=== PATIENT | male | born 1975 | race Caucasian/White ===

== ENCOUNTER 2016-05-04 16:36 | Inpatient (IN) | payer OTHER, SELFPAY ==
[~2016-05-04 16:36] MED LIST: THIAMINE IV ONE; VITAMINS FOR INFUSION IV ONE; [UNRECOGNIZED DRUG - OTHER] IV ONE
[2016-05-04] MEDS ORDERED: Ativan 2 MG/1 ML VIAL IV ONE (17:00)
[2016-05-04] MEDS ORDERED: Sodium Chloride 0.9% 1000 ML 1,000 ML IV STA (17:00)
[2016-05-04] MEDS ORDERED: LIBRIUM 25 MG PO ONE (17:00)
--- NOTE | 2016-05-04 17:05 | ERPHSYRPT ---
- History of Present Illness Time Seen by Provider: 05/04/16 16:50 Historian: patient Exam Limitations: clinical condition Physician History: PATIENT WITH HYPERTENSION, ALCOHOL ABUSE HAS BEEN BINGE DRINKING FOR 2 WEEKS COMPLAINS OF FREQUENT EMESIS AND DRY HEAVES SINCE LAST NIGHT. HAD AN EPISODE OF TRANSIENT CHEST PAIN 15 MINUTES ENROUTE TO EMERGENCY. DENIES CHEST PAIN, DYSPNEA UPON ARRIVAL TO EMERGENCY ROOM. Timing/Duration: today Quality: tightness Location: substernal Chest Pain Radiation: no radiation Severity of Pain-Max: moderate Severity of Pain-Current: none Associated Symptoms: nausea, vomiting Prior Chest Pain/Cardiac Workup: no prior chest pain Nitro Today/Relief: no nitro taken today Aspirin Treatment Today: no aspirin today Allergies/Adverse Reactions: No Known Drug Allergies Allergy (Verified 05/04/16 17:06) Home Medications: Lisinopril 10 mg [Zestril 10 MG] 10 mg PO BID 12/02/15 [History] Hx Tetanus, Diphtheria Vaccination/Date Given: Yes Hx Influenza Vaccination/Date Given: No Hx Pneumococcal Vaccination/Date Given: No - Review of Systems Constitutional: No Symptoms, No Fever, No Chills Eyes: No Symptoms Ears, Nose, & Throat: No Symptoms Respiratory: No Symptoms, No Cough, No Dyspnea Cardiac: Chest Pain, Palpitations, No Edema, No Syncope Abdominal/Gastrointestinal: Nausea, Vomiting, No Abdominal Pain, No Diarrhea Genitourinary Symptoms: No Symptoms, No Dysuria Musculoskeletal: No Symptoms, No Back Pain, No Neck Pain Skin: No Symptoms, No Rash Neurological: No Dizziness, No Focal Weakness, No Sensory Changes Psychological: No Symptoms Endocrine: No Symptoms All Other Systems: Reviewed and Negative - Past Medical History Pertinent Past Medical History: Yes Neurological History: Migraines, Seizures ENT History: No Pertinent History Cardiac History: Angina, Hypertension Respiratory History: Sleep Apnea Endocrine Medical History: No Pertinent History Musculoskeletal History: Fractures GI Medical History: Pancreatitis History: No Pertinent History Psycho-Social History: Attention Deficit Disorder, Depression, Eating Disorders , Panic Disorder, Other Other Medical History: last seizure possibly in 2011. -Liver sonogram- pt states "they said my liver is scratched.". - heart murmur when a child". broken fingers/lt ankle. 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 - Past Surgical History Past Surgical History: No - Social History Smoking Status: Current every day smoker How long have you smoked: 10 Exposure to second hand smoke: Yes Drug Use: other Patient Lives Alone: No - Physical Exam General Appearance: moderate distress Eye Exam: PERRL/EOMI, eyes nml inspection Ears, Nose, Throat Exam: normal ENT inspection, moist mucous membranes Neck Exam: normal inspection, non-tender, supple, full range of motion Respiratory Exam: normal breath sounds, lungs clear, No respiratory distress Cardiovascular Exam: normal heart sounds, tachycardia Gastrointestinal/Abdomen Exam: soft, normal bowel sounds, No tenderness, No mass Back Exam: normal inspection, No CVA tenderness, No vertebral tenderness Extremity Exam: normal inspection, normal range of motion Neurologic Exam: alert, oriented x 3, cooperative, normal mood/affect, sensation nml, No motor deficits Skin Exam: normal color, warm, dry SpO2 Interpretation: normal SpO2: 98 - Course EKG Interpreted by Me: RATE, Sinus Tach, NORMAL AXIS - Radiology Exams Chest X-ray Interpretation: Interpreted by me, Negative, No Infiltrates Ordered Tests: Active Orders 24 hr Category Date Time Status Up With Assistance TOLERATED Activity 05/04/16 18:10 Active Accucheck ACHS Care 05/04/16 18:12 Active Admission/Status Order ROUTINE Care 05/04/16 18:10 Active 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 Care 05/04/16 17:00 Active EKG-ER Only STAT Care 05/04/16 17:00 Active IV Insertion STAT Care 05/04/16 17:00 Active IV Insertion-2nd Peripheral STAT Care 05/04/16 17:17 Active Intake and Output 09,13,18,21 Care 05/04/16 18:10 Active Oxygen-ED Only NASAL CANNULA 2 lpm Care 05/04/16 17:00 Active Vital Signs Q4H Care 05/04/16 18:10 Active Regular Diet Diet 05/04/16 Dinner Active CHEST 1 VIEW (PORTABLE) Stat Exams 05/04/16 17:00 Taken AMYLASE Stat Lab 05/04/16 17:00 Completed CBC W DIFF Stat Lab 05/04/16 17:00 Completed CMP Stat Lab 05/04/16 17:00 Completed ETHYL ALCOHOL Routine Lab 05/04/16 17:00 Received MAGNESIUM Stat Lab 05/04/16 17:00 Completed PROTIME WITH INR Stat Lab 05/04/16 17:00 Completed TROPONIN Q3H Lab 05/04/16 17:15 Completed TROPONIN Q3H Lab 05/04/16 20:15 Ordered TROPONIN Q3H Lab 05/04/16 23:15 Ordered TROPONIN Q3H Lab 05/05/16 02:15 Ordered TROPONIN Q3H Lab 05/05/16 05:15 Ordered UA W/ MICROSCOPIC Stat Lab 05/04/16 18:10 Results Urine Triage Profile Stat Lab 05/04/16 18:10 Received Oxygen NASAL CANNULA 2 lpm RT 05/04/16 18:10 Active Pulse Oximetry ROUTINE RT 05/04/16 18:10 Active Transfer Order Routine Transfer 05/04/16 18:09 Ordered Medication Summary Generic Name Dose Route Start Last Admin Trade Name Freq PRN Reason Stop Dose Admin Folic Acid 1 mg 05/05/16 10:00 Folate 1 Mg PO 06/04/16 09:59 DAILY BOO Thiamine HCl 100 mg/ 1,011 mls @ 500 mls/hr 05/04/16 17:30 05/04/16 17:37 Multivitamins/Minerals 10 ml/ IV 06/03/16 17:29 500 mls/hr Sodium Chloride .Q2H2M BOO Administration Sodium Chloride 1,000 mls @ 125 mls/hr 05/04/16 18:15 Sodium Chloride 0.9% 1000 Ml IV 06/03/16 18:14 .Q8H BOO Lisinopril 20 mg 05/05/16 10:00 Zestril 20 Mg PO 06/04/16 09:59 DAILY BOO Lorazepam 0 mg 05/04/16 18:10 Ativan 2 Mg/1 Ml Vial IV 06/03/16 18:09 Q2H PRN PRN CIWA SCORE Protocol Pantoprazole Sodium 20 mg 05/05/16 10:00 Protonix 20mg Tablet PO 06/04/16 09:59 DAILY BOO Thiamine HCl 100 mg 05/05/16 10:00 Vitamin B-1 100 Mg PO 06/04/16 09:59 DAILY BOO Discontinued Medications Generic Name Dose Route Start Last Admin Trade Name Freq PRN Reason Stop Dose Admin Chlordiazepoxide HCl 50 mg 05/04/16 17:00 05/04/16 17:37 Librium 25 Mg PO 05/04/16 17:01 50 mg STAT ONE Administration Sodium Chloride 1,000 mls @ 999 mls/hr 05/04/16 17:00 05/04/16 17:07 Sodium Chloride 0.9% 1000 Ml IV 05/04/16 18:00 999 mls/hr .Q1H1M STA Administration Sodium Chloride Confirm 05/04/16 17:06 Sodium Chloride 0.9% 1000 Ml Administered 05/04/16 17:07 Dose 1,000 mls @ ud .ROUTE .STK-MED ONE Multivitamins/Minerals 10 ml/ 1,011 mls @ ud Thiamine HCl 100 mg/ Sodium IV 08/22/79 00:01 Chloride .STK-MED ONE Lorazepam 2 mg 05/04/16 17:00 05/04/16 17:07 Ativan 2 Mg/1 Ml Vial IV 05/04/16 17:01 2 mg STAT ONE Administration Lorazepam Confirm 05/04/16 17:06 Ativan 2 Mg/1 Ml Vial Administered 05/04/16 17:07 Dose 2 mg .ROUTE .STK-MED ONE Lab/Rad Data: Laboratory Result Diagrams 05/04/16 17:00 05/04/16 17:00 Laboratory Results 05/04/16 05/04/16 05/04/16 Range/Units 18:10 17:15 17:00 WBC (4.0-10.5) K/mm3 RBC (4.1-5.6) M/mm3 Hgb (12.5-18.0) gm/dl Hct (42-50) % MCV (78-100) fl MCH (26-32) pg MCHC (32-36) g/dl RDW (11.5-14.0) % Plt Count (150-450) K/mm3 MPV (6-9.5) fl Gran % (36.0-66.0) % Lymphocytes % (24.0-44.0) % Monocytes % (0.0-12.0) % Eosinophils % (0.00-5.0) % Basophils % (0.0-0.4) % Basophils # (0-0.4) INR 1.08 (0.8-3.0) Sodium (136-145) mEq/L Potassium (3.5-5.1) mEq/L Chloride (98-107) mEq/L Carbon Dioxide (21-32) mEq/L Anion Gap (5-15) MEQ/L BUN (9-20) mg/dL Creatinine (0.55-1.30) mg/dl Estimated GFR ML/MIN Glucose (70-110) MG/DL Calcium (8.5-10.1) mg/dL Magnesium (1.8-2.4) mg/dL Total Bilirubin (0.2-1.0) mg/dL AST (15-37) U/L ALT (12-78) U/L Alkaline Phosphatase (46-116) U/L Troponin I < 0.017 (0.000-0.056) ng/ml Serum Total Protein (6.4-8.2) gm/dL Albumin (3.4-5.0) g/dL Amylase (25-115) U/L Ur Collection Type Pending Urine Color Pending Urine Appearance Pending Urine pH Pending Ur Specific [place] Pending Urine Protein Pending Urine Glucose (UA) Pending Urine Ketones Pending Urine Nitrite Pending Urine Bilirubin Pending Urine Urobilinogen Pending Urine WBC (Auto) Pending Urine RBC (Auto) Pending Specimen Received Pending 05/04/16 05/04/16 Range/Units 17:00 17:00 WBC 6.1 (4.0-10.5) K/mm3 RBC 5.09 (4.1-5.6) M/mm3 Hgb 15.6 (12.5-18.0) gm/dl Hct 45.4 (42-50) % MCV 89.2 (78-100) fl MCH 30.6 (26-32) pg MCHC 34.4 (32-36) g/dl RDW 14.3 H (11.5-14.0) % Plt Count 177 (150-450) K/mm3 MPV 9.6 H (6-9.5) fl Gran % 58.0 (36.0-66.0) % Lymphocytes % 28.7 (24.0-44.0) % Monocytes % 12.9 H (0.0-12.0) % Eosinophils % 0.2 (0.00-5.0) % Basophils % 0.2 (0.0-0.4) % Basophils # 0.01 (0-0.4) INR (0.8-3.0) Sodium 136 (136-145) mEq/L Potassium 4.3 (3.5-5.1) mEq/L Chloride 96 L (98-107) mEq/L Carbon Dioxide 20.0 L (21-32) mEq/L Anion Gap 24.2 H (5-15) MEQ/L BUN 11 (9-20) mg/dL Creatinine 1.15 (0.55-1.30) mg/dl Estimated GFR > 60 ML/MIN Glucose 74 (70-110) MG/DL Calcium 9.0 (8.5-10.1) mg/dL Magnesium 1.5 L (1.8-2.4) mg/dL Total Bilirubin 1.3 H (0.2-1.0) mg/dL AST 48 H (15-37) U/L ALT 44 (12-78) U/L Alkaline Phosphatase 94 (46-116) U/L Troponin I (0.000-0.056) ng/ml Serum Total Protein 8.4 H (6.4-8.2) gm/dL Albumin 4.5 (3.4-5.0) g/dL Amylase 51 (25-115) U/L Ur Collection Type Urine Color Urine Appearance Urine pH Ur Specific [place] Urine Protein Urine Glucose (UA) Urine Ketones Urine Nitrite Urine Bilirubin Urine Urobilinogen Urine WBC (Auto) Urine RBC (Auto) Specimen Received - Progress Progress: improved Progress Note: 05/04/16 18:04 PATIENT GIVEN LIBRIUM 50MG ORALLY, IV FLUIDS 1 LITER NORMAL SALINE, 2ND LITER WITH MVI AND THIAMINE 100MG Discussed with Dr.: Streeter (DISCUSSED WITH DR STREETER AT 1800 FOR ADMISSION) - Departure Time of Disposition: 18:25 Departure Disposition: In-patient Admission Clinical Impression: ALCOHOL WITHDRAWAL, ACUTE CHEST PAIN Condition: Stable Critical Care Time: No Referrals: FIDE MANUEL MD [Primary Care Provider] -
[2016-05-04] MEDS ORDERED: Sodium Chloride 0.9% 1000 ML 1,000 ML ONE (17:06)
[2016-05-04] MEDS ORDERED: Ativan 2 MG/1 ML VIAL ONE (17:06)
[2016-05-04 17:20] LABS: BASOPHIL % 0.2 % (0.0-0.4); Eosinophil % 0.2 % (0.00-5.0); Lymphocytes % 28.7 % (24.0-44.0); Mean Cell Volume 89.2 fl (78-100); Mean Corpuscular Hemoglobin 30.6 pg (26-32); Mean Platelet Volume 9.6 fl (6-9.5); Monocytes % 12.9 % (0.0-12.0); Platelet Count 177 K/mm3 (150-450); Red Blood Count 5.09 M/mm3 (4.1-5.6); Red Cell Distribution Width 14.3 % (11.5-14.0); White Blood Count 6.1 K/mm3 (4.0-10.5)
[2016-05-04] MEDS ORDERED: THIAMINE IV SCH (17:30)
[2016-05-04] MEDS ORDERED: [UNRECOGNIZED DRUG - OTHER] IV SCH (17:30)
[2016-05-04] MEDS ORDERED: VITAMINS FOR INFUSION IV SCH (17:30)
[2016-05-04 17:32] LABS: INR 1.08 (0.8-3.0); PROTIME 12.1 SECONDS (8.83-12.87)
[2016-05-04 17:44] LABS: ALBUMIN 4.5 g/dL (3.4-5.0); ALKALINE PHOSPHATASE 94 U/L (46-116); ANION GAP 24.2 MEQ/L (5-15); BILIRUBIN,TOTAL 1.3 mg/dL (0.2-1.0); BLOOD UREA NITROGEN 11 mg/dL (9-20); CHLORIDE 96 mEq/L (98-107); Glucose 74 MG/DL (70-110); MAGNESIUM 1.5 mg/dL (1.8-2.4); Potassium 4.3 mEq/L (3.5-5.1); SGOT/AST 48 U/L (15-37); SGPT/ALT 44 U/L (12-78); SODIUM 136 mEq/L (136-145); Total Protein 8.4 gm/dL (6.4-8.2)
[2016-05-04 18:18] LABS: COMPLETE URINE MICROSCOPIC? YES; Collection Type CLEAN CATCH
[2016-05-04 18:22] LABS: Bacteria RARE /HPF (NEGATIVE); Epithelial Cells RARE /HPF (FEW); Mucus SLIGHT /HPF (NEGATIVE); WBC 0-2 /HPF (0-5)
[2016-05-04] MEDS ORDERED: Nitrostat 0.4 MG Tablet SL PRN (20:25)
[2016-05-04] MEDS: Nicoderm CQ 21 MG TOP SCH (21:06)
[2016-05-04] MEDS: Sodium Chloride 0.9% 1000 ML 1,000 ML IV SCH (21:19)
[2016-05-04] MEDS: Ambien 5 MG Tablet PO PRN (21:44)
[2016-05-05] MEDS: Sodium Chloride 0.9% 1000 ML 1,000 ML IV SCH ×3 (05:08→21:04)
[2016-05-05] MEDS: Ativan 2 MG/1 ML VIAL IV PRN ×5 (07:33→22:29)
--- NOTE | 2016-05-05 08:25 | PCM.HP ---
History of Present Illness - Chief Complaint Chief Complaint: chest pain, ETOH withdrawl History of Present Illness: is a 41 year old male with a history of alocholism who has been binge drinking for the last 2-3 weeks, he presented with vomiting and chest pain to the ER. He has a history of htn but has been noncompliant with his lisinopril. He denies chest pain this morning, still feels nauseated but has improved. - Review of Systems Constitutional: No Fever, No Chills Cardiac: Chest Pain, No Edema, No Syncope Abdominal/Gastrointestinal: Nausea, Vomiting, No Abdominal Pain, No Diarrhea, No Hematemesis, No Hematochezia, No Melena Genitourinary Symptoms: No Dysuria Skin: No Rash Neurological: No Dizziness, No Focal Weakness, No Sensory Changes All Other Systems: Reviewed and Negative Medications & Allergies Home Medications: Home Medication List Lisinopril 10 mg [Zestril 10 MG] 10 mg PO BID 12/02/15 [History Confirmed 05/04/16] Allergies/Adverse Reactions: Allergies Allergy/AdvReac Type Severity Reaction Status Date / Time No Known Drug Allergies Allergy Verified 05/04/16 17:06 - Past Medical History Past Medical History: Yes Neurological History: Migraines, Seizures ENT History: No Pertinent History Cardiac History: Angina, Hypertension, Other Respiratory History: Sleep Apnea Endocrine Medical History: No Pertinent History Musculoskelatal History: Fractures GI Medical History: Pancreatitis History: No Pertinent History Pyscho-Social History: Attention Deficit Disorder, Depression, Eating Disorders , Panic Disorder, Other Male Reproductive Disorders: No Pertinent History Comment: last seizure possibly in 4-5 months ago Dec 2015). -Liver sonogram- pt states "they said my liver is scratched.". - heart murmur when a child". broken fingers/lt ankle, paranoia. 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 - Past Surgical History Past Surgical History: No Neuro Surgical History: No Pertinent History Cardiac History: No Pertinent History Respiratory Surgery: No Pertinent History GI Surgical History: No Pertinent History Genitourinary Surgical Hx: No Pertinent History Musculskeletal Surgical Hx: No Pertinent History Male Surgical History: No Pertinent History - Social History Smoking Status: Current every day smoker How long have you smoked: 10 Exposure to second hand smoke: Yes Alcohol: Heavy Drug Use: other - Physical Exam Vital Signs: Vital Signs - 24 hr Temp Pulse Pulse Resp BP BP Pulse Ox 05/05/16 07:40 98.9 F 78 20 108/90 98 05/05/16 04:00 98.7 F 71 25 H 132/81 93 L 05/05/16 00:34 20 05/05/16 00:01 80 05/05/16 00:00 98.7 F 80 20 130/70 93 L 05/04/16 21:00 83 23 93 L 05/04/16 20:34 16 05/04/16 19:37 98.4 F 89 16 128/61 98 05/04/16 18:23 98 05/04/16 17:43 104 H 20 116/64 96 05/04/16 16:37 98.3 F 123 H 123 H 24 146/93 97 Oxygen-Last 24 hours O2 Percentage 2 Liters = 28% O2 Percentage 2 Liters = 28% O2 Percentage 2 Liters = 28% O2 Percentage 2 Liters = 28% General Appearance: no apparent distress Neurologic Exam: alert Eye Exam: PERRL/EOMI, eyes nml inspection Respiratory Exam: normal breath sounds, lungs clear, No respiratory distress Cardiovascular Exam: regular rate/rhythm, normal heart sounds, normal peripheral pulses Gastrointestinal/Abdomen Exam: soft, normal bowel sounds, No tenderness, No mass Extremity Exam: normal inspection, normal range of motion, pelvis stable Skin Exam: normal color, warm, dry, No rash Results - Labs Lab/Micro Results: Lab Results-Last 24 Hours 05/04/16 05/04/16 05/05/16 Range/Units 20:20 23:35 02:15 Troponin I < 0.017 < 0.017 < 0.017 (0.000-0.056) ng/ml 05/05/16 Range/Units 05:07 Troponin I < 0.017 (0.000-0.056) ng/ml - Other Procedures and Tests Respiratory Therapy 05/04/16 18:10 Oxygen NASAL CANNULA 2 lpm 05/06/16 05:00 EKG DAILY 05/07/16 05:00 EKG DAILY 05/08/16 05:00 EKG DAILY Assessment/Plan (1) Chest pain Current Visit: Yes Status: Acute Assessment & Plan: AR ruled out, related to withdrawal Code(s): R07.9 - CHEST PAIN, UNSPECIFIED (2) Alcohol withdrawal Current Visit: No Status: Acute Assessment & Plan: per records patient has had seizure in the past related to withdrawal so will keep in ICU as a precaution to monitor and treat withdrawal symptoms Code(s): F10.239 - ALCOHOL DEPENDENCE WITH WITHDRAWAL, UNSPECIFIED (3) Nausea & vomiting Current Visit: Yes Status: Acute Assessment & Plan: likely related to etoh withdrawal, will treat nausea prn and continue regular diet as tolerated as he seems much improved. will order ppi as well Code(s): R11.2 - NAUSEA WITH VOMITING, UNSPECIFIED (4) Hypertension Current Visit: Yes Status: Acute Assessment & Plan: stable on lisinopril Code(s): I10 - ESSENTIAL (PRIMARY) HYPERTENSION (5) Alcohol abuse Current Visit: No Status: Acute Code(s): F10.10 - ALCOHOL ABUSE, UNCOMPLICATED
--- NOTE | 2016-05-05 08:32 | XRAY ---
Indication: Cough Comparison: December 02, 2015 Portable chest demonstrates new small focus of lingular atelectasis/scarring. Remaining heart, lungs, and bony thorax normal.
[2016-05-05] MEDS: FOLATE 1 MG PO SCH (10:53)
[2016-05-05] MEDS: Protonix 20MG Tablet PO SCH (10:53)
[2016-05-05] MEDS: VITAMIN B-1 100 MG PO SCH (10:53)
[2016-05-05] MEDS: Zestril 20 MG PO SCH (10:53)
[2016-05-05] MEDS: Nicoderm CQ 21 MG TOP SCH (20:32)
[2016-05-05] MEDS: Ambien 5 MG Tablet PO PRN (22:29)
[2016-05-06] MEDS: Ativan 2 MG/1 ML VIAL IV PRN ×6 (02:00→23:58)
[2016-05-06 05:53] LABS: Eosinophil % 1.3 % (0.00-5.0); Granulocytes % 35.7 % (36.0-66.0); Lymphocytes % 54.9 % (24.0-44.0); Mean Cell Volume 93.3 fl (78-100); Mean Corpuscular Hemoglobin 30.7 pg (26-32); Mean Platelet Volume 10.4 fl (6-9.5); Monocytes % 8.1 % (0.0-12.0); Platelet Count 124 K/mm3 (150-450); Red Blood Count 4.36 M/mm3 (4.1-5.6); Red Cell Distribution Width 14.6 % (11.5-14.0); White Blood Count 4.6 K/mm3 (4.0-10.5)
[2016-05-06 06:07] LABS: PROTIME 11.2 SECONDS (8.83-12.87)
[2016-05-06 06:17] LABS: ALBUMIN 3.4 g/dL (3.4-5.0); ALKALINE PHOSPHATASE 84 U/L (46-116); ANION GAP 12.5 MEQ/L (5-15); BILIRUBIN,TOTAL 0.6 mg/dL (0.2-1.0); BLOOD UREA NITROGEN 9 mg/dL (9-20); CHLORIDE 107 mEq/L (98-107); Carbon Dioxide 24.7 mEq/L (21-32); Glucose 99 MG/DL (70-110); MAGNESIUM 1.8 mg/dL (1.8-2.4); Potassium 3.8 mEq/L (3.5-5.1); SGOT/AST 36 U/L (15-37); SGPT/ALT 35 U/L (12-78); SODIUM 140 mEq/L (136-145); Total Protein 7.2 gm/dL (6.4-8.2)
[2016-05-06] MEDS: Sodium Chloride 0.9% 1000 ML 1,000 ML IV SCH ×4 (06:47→23:20)
--- NOTE | 2016-05-06 07:49 | PCM.NOTE ---
Date and Time: 05/06/16 0747 Subjective Assessment: patient was admitted with nausea/vomiting, chest pain and alcohol abuse. he is currently on withdrawal protocol and receiving ativan every 2 hours which is helping. he vomited x 1 yesterday but overall feeling better Objective Exam General Appearance: no apparent distress Neurologic Exam: alert, oriented x 3 Skin Exam: normal color, warm, dry Respiratory Exam: normal breath sounds, lungs clear, No respiratory distress Cardiovascular Exam: regular rate/rhythm, normal heart sounds Gastrointestinal/Abdomen Exam: soft, No tenderness, No mass Extremity Exam: normal inspection, normal range of motion OBJECTIVE DATA Vital Signs: Vital Signs - 24 hr Temp Pulse Resp BP Pulse Ox 05/06/16 07:21 93 L 05/06/16 04:00 97.7 F 71 24 124/80 98 05/06/16 00:01 70 05/06/16 00:00 98.8 F 70 22 133/93 96 05/05/16 20:00 98.2 F 74 14 120/78 98 05/05/16 19:55 86 18 97 05/05/16 16:00 98.2 F 68 18 120/76 96 05/05/16 12:00 98.1 F 84 20 141/85 95 Pain Assessment - Last Documented Pain Scale Used 0-10 Pain Scale Intake and Output: Intake & Output 05/03/16 05/04/16 05/05/16 05/06/16 11:59 11:59 11:59 11:59 Intake Total 1718 3288 Output Total 200 850 Balance 1518 2438 Weight 98.112 kg 97.976 kg Lab Results: Lab Results-Last 24 Hours 05/06/16 05/06/16 05/06/16 Range/Units 05:15 05:15 05:15 WBC 4.6 (4.0-10.5) K/mm3 RBC 4.36 (4.1-5.6) M/mm3 Hgb 13.4 (12.5-18.0) gm/dl Hct 40.7 L (42-50) % MCV 93.3 (78-100) fl MCH 30.7 (26-32) pg MCHC 32.9 (32-36) g/dl RDW 14.6 H (11.5-14.0) % Plt Count 124 L (150-450) K/mm3 MPV 10.4 H (6-9.5) fl Gran % 35.7 L (36.0-66.0) % Lymphocytes % 54.9 H (24.0-44.0) % Monocytes % 8.1 (0.0-12.0) % Eosinophils % 1.3 (0.00-5.0) % Basophils % 0.0 (0.0-0.4) % Basophils # 0 (0-0.4) INR 1.00 (0.8-3.0) Sodium 140 (136-145) mEq/L Potassium 3.8 (3.5-5.1) mEq/L Chloride 107 (98-107) mEq/L Carbon Dioxide 24.7 (21-32) mEq/L Anion Gap 12.5 (5-15) MEQ/L BUN 9 (9-20) mg/dL Creatinine 0.88 (0.55-1.30) mg/dl Estimated GFR > 60 ML/MIN Glucose 99 (70-110) MG/DL Calcium 8.4 L (8.5-10.1) mg/dL Magnesium 1.8 (1.8-2.4) mg/dL Total Bilirubin 0.6 (0.2-1.0) mg/dL AST 36 (15-37) U/L ALT 35 (12-78) U/L Alkaline Phosphatase 84 (46-116) U/L Serum Total Protein 7.2 (6.4-8.2) gm/dL Albumin 3.4 (3.4-5.0) g/dL Assessment/Plan (1) Chest pain Current Visit: Yes Status: Acute Assessment & Plan: MT ruled out Code(s): R07.9 - CHEST PAIN, UNSPECIFIED (2) Alcohol withdrawal Current Visit: No Status: Acute Assessment & Plan: continue detox protocol, doing well at this point. has had seizure in the past from withdrawal so keeping in ICU for higher level of monitoring and to treat with detox protocol at this time. Code(s): F10.239 - ALCOHOL DEPENDENCE WITH WITHDRAWAL, UNSPECIFIED (3) Nausea & vomiting Current Visit: Yes Status: Acute Code(s): R11.2 - NAUSEA WITH VOMITING, UNSPECIFIED (4) Hypertension Current Visit: Yes Status: Acute Code(s): I10 - ESSENTIAL (PRIMARY) HYPERTENSION (5) Alcohol abuse Current Visit: No Status: Acute Code(s): F10.10 - ALCOHOL ABUSE, UNCOMPLICATED
[2016-05-06] MEDS: Protonix 20MG Tablet PO SCH (08:13)
[2016-05-06] MEDS: Zestril 20 MG PO SCH (08:13)
[2016-05-06] MEDS: FOLATE 1 MG PO SCH (08:13)
[2016-05-06] MEDS: VITAMIN B-1 100 MG PO SCH (08:15)
[2016-05-06] MEDS: Nicoderm CQ 21 MG TOP SCH (20:10)
[2016-05-06] MEDS: Ambien 5 MG Tablet PO PRN (23:59)
[2016-05-07 05:01] VITALS: BP 159/90; O2SAT 99
[2016-05-07] MEDS: Sodium Chloride 0.9% 1000 ML 1,000 ML IV SCH (06:37)
[2016-05-07 08:24] VITALS: PULSE 59
--- NOTE | 2016-05-07 08:55 | PCM.DCORD ---
- Discharge Discharge Date: 05/07/16 Disposition: Home, Self-Care Condition: Stable Prescriptions: Fluoxetine HCl [Prozac] 20 mg PO DAILY #30 capsule Lisinopril 20 mg [Zestril 20 MG] 20 mg PO DAILY #30 tablet Medications: Home Medications Lisinopril 10 mg [Zestril 10 MG] 10 mg PO BID 12/02/15 [Confirmed 05/04/16 ] Active Inpatient Medications Folic Acid (Folate 1 Mg) 1 mg PO DAILY [facility] Stop: 06/04/16 09:59 Last Admin: 05/06/16 08:13 Dose: 1 mg Sodium Chloride (Sodium Chloride 0.9% 1000 Ml) 1,000 mls @ 125 mls/hr IV .Q8H [facility] Stop: 06/03/16 18:14 Last Admin: 05/07/16 06:37 Dose: 125 mls/hr Lisinopril (Zestril 20 Mg) 20 mg PO DAILY [facility] Stop: 06/04/16 09:59 Last Admin: 05/06/16 08:13 Dose: 20 mg Lorazepam (Ativan 2 Mg/1 Ml Vial) 0 mg IV Q2H PRN PRN; Protocol PRN Reason: CIWA SCORE Stop: 06/03/16 18:09 Last Admin: 05/06/16 23:58 Dose: 2 mg Nicotine (Nicoderm Cq 21 Mg) 21 mg TOP Q24H [facility] Stop: 06/03/16 20:59 Last Admin: 05/06/16 20:10 Dose: 21 mg Nitroglycerin (Nitrostat 0.4 Mg Tablet) 0.4 mg SL Q5MIN PRN MR X 3 PRN PRN Reason: CHEST PAIN Stop: 06/03/16 20:24 Pantoprazole Sodium (Protonix 20mg Tablet) 20 mg PO DAILY [facility] Stop: 06/04/16 09:59 Last Admin: 05/06/16 08:13 Dose: 20 mg Thiamine HCl (Vitamin B-1 100 Mg) 100 mg PO DAILY [facility] Stop: 06/04/16 09:59 Last Admin: 05/06/16 08:15 Dose: 100 mg Zolpidem Tartrate (Ambien 5 Mg Tablet) 5 mg PO HS PRN PRN PRN Reason: INSOMNIA Stop: 06/03/16 21:29 Last Admin: 05/06/16 23:59 Dose: 5 mg Additional Instructions: [facility] follow up Follow up with: FIDE MANUEL MD [Primary Care Provider] -
--- NOTE | 2016-05-07 09:01 | PCM.DS ---
Discharge Summary Date of Admission: 05/04/16 19:08 Date of Discharge: 05/07/16 Admitting Physician: SOILA STREETER Primary Care Provider: FIDE MANUEL Allergies Allergies No Known Drug Allergies Allergy (Verified 05/04/16 17:06) Hospital Summary - Hospital Course Hospital Course: Mr. De La Rosa has history of alcoholism he was clean for several months with a good support group but was triggered to start drinking again and has been drinking heavily for the last several weeks. He got nauseated and vomiting and last drink was 1 day prior to presentation. He had hx of alcohol withdraw seizures in the past and was admitted with iv fluids, nausea control, and ativan. He improved and was doing well last ativan dose was at 11 pm the day prior to discharge with no tremors. He is feeling better motivated to quit again. has plans to follow up with the [facility] and his support group and [facility]uther[facility]. He has been treated for depression and anxiety in the past but never been on anything long enough to see if it will work. He is problems with feelings of worthlessness, helplessness and we discussed treatment options. Encouraged f/u for therapy with the [facility] and start trial of prozac daily. - Vitals & Intake/Output Vital Signs: Vital Signs Temperature 98 F 05/07/16 08:00 Pulse Rate 59 L 05/07/16 08:00 Respiratory Rate 18 05/07/16 08:00 Blood Pressure 159/90 05/07/16 08:00 O2 Sat by Pulse Oximetry 99 05/07/16 08:00 Oxygen-Last Documented O2 Percentage 2 Liters = 28% Intake & Output: Intake & Output 05/04/16 05/05/16 05/06/16 05/07/16 11:59 11:59 11:59 11:59 Intake Total 1718 3288 3250 Output Total 200 850 Balance 1518 2438 3250 Weight 98.112 kg 97.976 kg 94.347 kg - Lab Result Diagrams: 05/06/16 05:15 05/06/16 05:15 - Procedures and Test Procedures and Tests throughout Hospitalization: Therapy Orders & Screens 05/04/16 18:10 Oxygen NASAL CANNULA 2 lpm Comment: 05/04/16 20:03 Smoking Cessation Education ONCE Comment: Diagnosis: chest pain, ETOH withdrawl Smoking Status: Current every day smoker How long have you smoked: 10 Have you smoked in the past 12 months: Yes Approximately how many cigarettes per day: 1 ppd Do you dip or chew tobacco: Yes 05/05/16 01:40 EKG ROUTINE Comment: Diagnosis: chest pain, ETOH withdrawl 05/06/16 05:00 EKG DAILY Comment: Diagnosis: chest pain, ETOH withdrawl 05/07/16 05:00 EKG DAILY Comment: Diagnosis: chest pain, ETOH withdrawl 05/08/16 05:00 EKG DAILY Comment: Diagnosis: chest pain, ETOH withdrawl Discharge Exam General Appearance: no apparent distress Neurologic Exam: alert, oriented x 3, cooperative Skin Exam: warm, dry Eye Exam: No eyes nml inspection, No scleral icterus Ears, Nose, Throat Exam: moist mucous membranes Neck Exam: non-tender, supple Respiratory Exam: normal breath sounds, lungs clear Cardiovascular Exam: regular rate/rhythm, normal heart sounds Gastrointestinal/Abdomen Exam: soft, normal bowel sounds, No tenderness Extremity Exam: normal inspection, No pedal edema, No swelling Final Diagnosis/Problem List - Final Discharge Diagnosis/Problem (1) Depression Current Visit: Yes Status: Acute (2) Alcohol withdrawal syndrome Current Visit: Yes Status: Acute (3) Chest pain Current Visit: Yes Status: Resolved (4) Hypertension Current Visit: Yes Status: Acute (5) Hypomagnesemia Current Visit: Yes Status: Resolved - Discharge Discharge Date: 05/07/16 Disposition: Home, Self-Care Condition: Stable Prescriptions: Fluoxetine HCl [Prozac] 20 mg PO DAILY #30 capsule Lisinopril 20 mg [Zestril 20 MG] 20 mg PO DAILY #30 tablet Medications: Home Medications Fluoxetine HCl [Prozac] 20 mg PO DAILY #30 capsule 05/07/16 Lisinopril 20 mg [Zestril 20 MG] 20 mg PO DAILY #30 tablet 05/07/16 Active Inpatient Medications Folic Acid (Folate 1 Mg) 1 mg PO DAILY [facility] Stop: 06/04/16 09:59 Last Admin: 05/06/16 08:13 Dose: 1 mg Sodium Chloride (Sodium Chloride 0.9% 1000 Ml) 1,000 mls @ 125 mls/hr IV .Q8H BOO Stop: 06/03/16 18:14 Last Admin: 05/07/16 06:37 Dose: 125 mls/hr Lisinopril (Zestril 20 Mg) 20 mg PO DAILY [facility] Stop: 06/04/16 09:59 Last Admin: 05/06/16 08:13 Dose: 20 mg Lorazepam (Ativan 2 Mg/1 Ml Vial) 0 mg IV Q2H PRN PRN; Protocol PRN Reason: CIWA SCORE Stop: 06/03/16 18:09 Last Admin: 05/06/16 23:58 Dose: 2 mg Nicotine (Nicoderm Cq 21 Mg) 21 mg TOP Q24H BOO Stop: 06/03/16 20:59 Last Admin: 05/06/16 20:10 Dose: 21 mg Nitroglycerin (Nitrostat 0.4 Mg Tablet) 0.4 mg SL Q5MIN PRN MR X 3 PRN PRN Reason: CHEST PAIN Stop: 06/03/16 20:24 Pantoprazole Sodium (Protonix 20mg Tablet) 20 mg PO DAILY [facility] Stop: 06/04/16 09:59 Last Admin: 05/06/16 08:13 Dose: 20 mg Thiamine HCl (Vitamin B-1 100 Mg) 100 mg PO DAILY BOO Stop: 06/04/16 09:59 Last Admin: 05/06/16 08:15 Dose: 100 mg Zolpidem Tartrate (Ambien 5 Mg Tablet) 5 mg PO HS PRN PRN PRN Reason: INSOMNIA Stop: 06/03/16 21:29 Last Admin: 05/06/16 23:59 Dose: 5 mg Additional Instructions: [facility] follow up Follow up with: FIDE MANUEL MD [Primary Care Provider] -
== END 2016-05-07 09:50 | disposition home or self-care (01) | DRG 881 ==
LOC: ED 16:36 → ICU 19:08
PROVIDERS: ADMIT Family Medicine; ATTEND Family Medicine
DX: F32.9 Major depressive disorder, single episode, unspecified (principal); F10.239 Alcohol dependence with withdrawal, unspecified; R07.9 Chest pain, unspecified; I10 Essential (primary) hypertension; E83.42 Hypomagnesemia; Z91.14 Patient's other noncompliance with medication regimen; F10.10 Alcohol abuse, uncomplicated; G47.30 Sleep apnea, unspecified; F98.8 Other specified behavioral and emotional disorders with onset usually occurring in childhood and adolescence; F41.0 Panic disorder [episodic paroxysmal anxiety]; Z72.0 Tobacco use
CPT/HCPCS: 36000; 36415; 71010; 80053; 80307; 81000; 82150; 83735; 84484; 85025; 85610; 90791; 93005; 93041; 96374; 99284; G0481; J2060; Q3014

== ENCOUNTER 2016-05-31 13:18 | Observation (INO) | payer OTHER ==
[2016-05-31] MEDS ORDERED: Ativan 2 MG/1 ML VIAL IV ONE ×2 (13:40→15:00)
[2016-05-31] MEDS ORDERED: THIAMINE 200 MG/2 ML IM ONE (13:40)
[2016-05-31] MEDS ORDERED: Dextrose 5%-Lr IV Solution 1000 ML 1,000 ML IV ONE ×3 (13:42→15:04)
[2016-05-31] MEDS ORDERED: Ativan 2 MG/1 ML VIAL ONE ×2 (13:47→15:04)
[2016-05-31] MEDS ORDERED: THIAMINE 200 MG/2 ML ONE (13:47)
[2016-05-31 13:56] LABS: BASOPHIL % 0.1 % (0.0-0.4); Eosinophil % 0.3 % (0.00-5.0); Granulocytes % 65.1 % (36.0-66.0); Lymphocytes % 30.7 % (24.0-44.0); Mean Cell Volume 89.5 fl (78-100); Mean Corpuscular Hemoglobin 30.4 pg (26-32); Mean Platelet Volume 9.8 fl (6-9.5); Monocytes % 3.8 % (0.0-12.0); Platelet Count 224 K/mm3 (150-450); Red Blood Count 5.42 M/mm3 (4.1-5.6); Red Cell Distribution Width 14.8 % (11.5-14.0); White Blood Count 9.5 K/mm3 (4.0-10.5)
[2016-05-31 14:19] LABS: ALBUMIN 4.4 g/dL (3.4-5.0); ALKALINE PHOSPHATASE 96 U/L (46-116); ANION GAP 20.5 MEQ/L (5-15); BILIRUBIN,TOTAL 0.9 mg/dL (0.2-1.0); BLOOD UREA NITROGEN 7 mg/dL (9-20); CHLORIDE 97 mEq/L (98-107); Carbon Dioxide 20.6 mEq/L (21-32); Glucose 123 MG/DL (70-110); LIPASE 177 U/L (73-393); MAGNESIUM 1.5 mg/dL (1.8-2.4); Potassium 3.6 mEq/L (3.5-5.1); SGOT/AST 52 U/L (15-37); SGPT/ALT 56 U/L (12-78); SODIUM 135 mEq/L (136-145); Total Protein 8.9 gm/dL (6.4-8.2)
--- NOTE | 2016-05-31 14:19 | ERPHSYRPT ---
- History of Present Illness Time Seen by Provider: 05/31/16 13:30 Source: patient, family (father) Patient Subjective Stated Complaint: is tired of living like this and wants to end his life. has been drinking heavy all week and drank alcohol this am. hx of alcoholism and has been trying to get off of it. Triage Nursing Assessment: ambulated to room two per self. visibly shaking, very restless. crying at times. patient's belongings removed from the room. father at bedside Physician History: CC: alcohol/depression Hx: 41 y/o male with alcoholism. He has been a chronic drinker of alcohol since childhood. It has worsened. He has not had a job for over a year. He begs for money. Last drank alcohol this AM. Hx of alcohol withdrawal and seizure in past. 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 He was upset with friends last week. He has social support from family. He is depressed and tired of living this way. Does not want to live this way any longer. He did not report a suicide plan but father was worried about suicide ideation so brought him here. He was admitted last month. Did not follow up with [facility]. No family doctor. Not taking his prozac or lisinopril. Timing/Duration: today Severity of Symptoms-Max: moderate Severity of Symptoms-Current: moderate Allergies/Adverse Reactions: No Known Drug Allergies Allergy (Verified 05/04/16 17:06) Hx Tetanus, Diphtheria Vaccination/Date Given: Yes Hx Influenza Vaccination/Date Given: No Hx Pneumococcal Vaccination/Date Given: No - Past Medical History Pertinent Past Medical History: Yes Neurological History: Migraines, Seizures ENT History: No Pertinent History Cardiac History: Angina, Hypertension, Other Respiratory History: Sleep Apnea Endocrine Medical History: No Pertinent History Musculoskeletal History: Fractures GI Medical History: Pancreatitis History: No Pertinent History Psycho-Social History: Attention Deficit Disorder, Depression, Eating Disorders , Panic Disorder, Other Male Reproductive Disorders: No Pertinent History Other Medical History: last seizure possibly in 4-5 months ago Dec 2015). - Liver sonogram- pt states "they said my liver is scratched.". - heart murmur when a child". broken fingers/lt ankle, paranoia. 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 - Past Surgical History Past Surgical History: No Neuro Surgical History: No Pertinent History Cardiac: No Pertinent History Respiratory: No Pertinent History Gastrointestinal: No Pertinent History Genitourinary: No Pertinent History Musculoskeletal: No Pertinent History Male Surgical History: No Pertinent History - Social History Smoking Status: Current every day smoker How long have you smoked: 10 Exposure to second hand smoke: Yes Drug Use: other Patient Lives Alone: No - Review of Systems Constitutional: Malaise, Weakness, No Fever, No Chills Eyes: No Symptoms Ears, Nose, & Throat: No Symptoms Respiratory: Cough Cardiac: No Chest Pain Abdominal/Gastrointestinal: Nausea, No Abdominal Pain, No Vomiting Skin: No Rash Neurological: No Dizziness, No Focal Weakness, No Headache, No Parasthesia Psychological: Alcohol Abuse, Suicidal Ideations, Emotional Lability, No Hallucinations All Other Systems: Reviewed and Negative - Nursing Vital Signs Nursing Vital Signs: Initial Vital Signs Temperature 98.7 F Temperature Source Oral Pulse Rate 102 Respiratory Rate 18 Blood Pressure [Left Arm] 117/75 Pain Intensity 0 - Physical Exam General Appearance: alert, other (anxious and shaky with tremor) Eyes, Ears, Nose, Throat Exam: normal ENT inspection, moist mucous membranes Neck Exam: normal inspection, non-tender, supple Respiratory Exam: normal breath sounds, lungs clear, other (+ cough) Cardiovascular Exam: regular rate/rhythm, No murmur Gastrointestinal/Abdominal Exam: soft, No tenderness, No distention Neurological Exam: alert Behavior/Eye Contact/Speech: alert & cooperative Skin Exam: warm, dry, No rash SpO2 Interpretation: normal SpO2: 99 Oxygen Delivery: Room Air - Course Nursing assessment & vital signs reviewed: Yes EKG Interpreted by Me: RATE (107), Sinus Tach, NORMAL AXIS, NORMAL INTERVALS ( QTc 430), NORMAL QRS, Non-specific ST Changes Ordered Tests: Active Orders 24 hr Category Date Time Status Clean Catch Urine Specimen STAT Care 05/31/16 13:40 Active EKG-ER Only STAT Care 05/31/16 13:42 Active EKG-ER Only STAT Care 05/31/16 13:42 Active IV Insertion STAT Care 05/31/16 13:40 Active Psychiatric Evaluation STAT Care 05/31/16 13:40 Active ACETAMINOPHEN Stat Lab 05/31/16 13:40 Completed CBC W DIFF Stat Lab 05/31/16 13:40 Completed CMP Stat Lab 05/31/16 13:40 Completed Ethyl Alcohol,Urine Stat Lab 05/31/16 14:00 Completed LIPASE Stat Lab 05/31/16 13:40 Completed MAGNESIUM Stat Lab 05/31/16 13:40 Completed PROTIME WITH INR Stat Lab 05/31/16 13:40 Completed SALICYLATE Stat Lab 05/31/16 13:40 Completed UA W/ MICROSCOPIC Stat Lab 05/31/16 14:00 Completed Urine Triage Profile Stat Lab 05/31/16 14:00 Completed Medication Summary Generic Name Dose Route Start Last Admin Trade Name Pauly PRN Reason Stop Dose Admin Magnesium Sulfate/Dextrose 100 mls @ 100 mls/hr 05/31/16 14:45 05/31/16 14:51 Magnesium 1 Gm / 100 Ml D5w IV 05/31/16 16:44 100 mls/hr Q1H BOO Administration Dextrose/Lactated Ringer's 1,000 mls @ 100 mls/hr 05/31/16 15:00 05/31/16 15: 07 Dextrose 5%-Lr Iv Solution 1000 Ml IV 06/30/16 14:59 100 mls/hr .Q10H BOO Administration Discontinued Medications Generic Name Dose Route Start Last Admin Trade Name Pauly PRN Reason Stop Dose Admin Dextrose/Lactated Ringer's 1,000 mls @ 999 mls/hr 05/31/16 13:42 05/31/16 13: 56 Dextrose 5%-Lr Iv Solution 1000 Ml IV 05/31/16 14:42 999 mls/hr .Q1H1M ONE Administration Dextrose/Lactated Ringer's Confirm 05/31/16 13:47 Dextrose 5%-Lr Iv Solution 1000 Ml Administered 05/31/16 13:48 Dose 1,000 mls @ ud IV .STK-MED ONE Magnesium Sulfate/Dextrose Confirm 05/31/16 14:49 Magnesium 1 Gm / 100 Ml D5w Administered 05/31/16 14:50 Dose 100 mls @ ud IV .STK-MED ONE Dextrose/Lactated Ringer's Confirm 05/31/16 15:04 Dextrose 5%-Lr Iv Solution 1000 Ml Administered 05/31/16 15:05 Dose 1,000 mls @ ud IV .STK-MED ONE Lorazepam 2 mg 05/31/16 13:40 05/31/16 13:56 Ativan 2 Mg/1 Ml Vial IV 05/31/16 13:41 2 mg STAT ONE Administration Lorazepam Confirm 05/31/16 13:47 Ativan 2 Mg/1 Ml Vial Administered 05/31/16 13:48 Dose 2 mg .ROUTE .STK-MED ONE Lorazepam 2 mg 05/31/16 15:00 05/31/16 15:07 Ativan 2 Mg/1 Ml Vial IV 05/31/16 15:01 2 mg STAT ONE Administration Lorazepam Confirm 05/31/16 15:04 Ativan 2 Mg/1 Ml Vial Administered 05/31/16 15:05 Dose 2 mg .ROUTE .STK-MED ONE Thiamine HCl 100 mg 05/31/16 13:40 05/31/16 13:57 Thiamine 200 Mg/2 Ml IM 05/31/16 13:41 100 mg STAT ONE Administration Thiamine HCl Confirm 05/31/16 13:47 Thiamine 200 Mg/2 Ml Administered 05/31/16 13:48 Dose 200 mg .ROUTE .STK-MED ONE Lab/Rad Data: Laboratory Result Diagrams 05/31/16 13:40 05/31/16 13:40 Laboratory Results 05/31/16 05/31/16 05/31/16 Range/Units 14:00 14:00 14:00 WBC (4.0-10.5) K/mm3 RBC (4.1-5.6) M/mm3 Hgb (12.5-18.0) gm/dl Hct (42-50) % MCV (78-100) fl MCH (26-32) pg MCHC (32-36) g/dl RDW (11.5-14.0) % Plt Count (150-450) K/mm3 MPV (6-9.5) fl Gran % (36.0-66.0) % Lymphocytes % (24.0-44.0) % Monocytes % (0.0-12.0) % Eosinophils % (0.00-5.0) % Basophils % (0.0-0.4) % Basophils # (0-0.4) INR (0.8-3.0) Sodium (136-145) mEq/L Potassium (3.5-5.1) mEq/L Chloride (98-107) mEq/L Carbon Dioxide (21-32) mEq/L Anion Gap (5-15) MEQ/L BUN (9-20) mg/dL Creatinine (0.55-1.30) mg/dl Estimated GFR ML/MIN Glucose (70-110) MG/DL Calcium (8.5-10.1) mg/dL Magnesium (1.8-2.4) mg/dL Total Bilirubin (0.2-1.0) mg/dL AST (15-37) U/L ALT (12-78) U/L Alkaline Phosphatase (46-116) U/L Serum Total Protein (6.4-8.2) gm/dL Albumin (3.4-5.0) g/dL Lipase (73-393) U/L Ur Collection Type CCMS Urine Color YELLOW (YELLOW) Urine Appearance CLEAR (CLEAR) Urine pH 5.5 5.5 (5-6) Ur Specific Henniker 1.020 (1.005-1.025) Urine Protein 30 (Negative) Urine Glucose (UA) NEGATIVE (NEGATIVE) mg/dL Urine Ketones SMALL-15 (NEGATIVE) Urine Nitrite NEGATIVE (NEGATIVE) Urine Bilirubin SMALL (NEGATIVE) Urine Urobilinogen 1 (0-1) mg/dL Urine WBC (Auto) NEGATIVE (NEGATIVE) Urine RBC (Auto) NEGATIVE (0-5) Dane/ul Urine Microscopic WBC 0-2 (0-5) /HPF Ur Epithelial Cells FEW (FEW) /HPF Urine Bacteria RARE (NEGATIVE) /HPF Granular Casts 0-2 (NEGATIVE) /LPF Urine Mucus MODERATE (NEGATIVE) /HPF Salicylates (2.8-20.0) mg/dl Urine Opiates Level NEG. (NEGATIVE) Ur Methadone NEG. (NEGATIVE) Acetaminophen (10-30) ug/ml Urine Barbiturates NEG. (NEGATIVE) Ur Phencyclidine (PCP) NEG. (NEGATIVE) Urine Amphetamine NEG. (NEGATIVE) U Benzodiazepine Level NEG. (NEGATIVE) Urine Cocaine NEG. (NEGATIVE) Urine Marijuana (THC) NEG. (NEGATIVE) Ethyl Alcohol Urine Ethyl Alcohol 187 H (0.00-20) mg/dl Specimen Received 05-31-16 1415 05/31/16 05/31/16 05/31/16 Range/Units 13:40 13:40 13:40 WBC 9.5 (4.0-10.5) K/mm3 RBC 5.42 (4.1-5.6) M/mm3 Hgb 16.5 (12.5-18.0) gm/dl Hct 48.5 (42-50) % MCV 89.5 (78-100) fl MCH 30.4 (26-32) pg MCHC 34.0 (32-36) g/dl RDW 14.8 H (11.5-14.0) % Plt Count 224 (150-450) K/mm3 MPV 9.8 H (6-9.5) fl Gran % 65.1 (36.0-66.0) % Lymphocytes % 30.7 (24.0-44.0) % Monocytes % 3.8 (0.0-12.0) % Eosinophils % 0.3 (0.00-5.0) % Basophils % 0.1 (0.0-0.4) % Basophils # 0.01 (0-0.4) INR 1.06 (0.8-3.0) Sodium 135 L (136-145) mEq/L Potassium 3.6 (3.5-5.1) mEq/L Chloride 97 L (98-107) mEq/L Carbon Dioxide 20.6 L (21-32) mEq/L Anion Gap 20.5 H (5-15) MEQ/L BUN 7 L (9-20) mg/dL Creatinine 1.16 (0.55-1.30) mg/dl Estimated GFR > 60 ML/MIN Glucose 123 H (70-110) MG/DL Calcium 8.9 (8.5-10.1) mg/dL Magnesium 1.5 L (1.8-2.4) mg/dL Total Bilirubin 0.9 (0.2-1.0) mg/dL AST 52 H (15-37) U/L ALT 56 (12-78) U/L Alkaline Phosphatase 96 (46-116) U/L Serum Total Protein 8.9 H (6.4-8.2) gm/dL Albumin 4.4 (3.4-5.0) g/dL Lipase 177 (73-393) U/L Ur Collection Type Urine Color (YELLOW) Urine Appearance (CLEAR) Urine pH (5-6) Ur Specific Henniker (1.005-1.025) Urine Protein (Negative) Urine Glucose (UA) (NEGATIVE) mg/dL Urine Ketones (NEGATIVE) Urine Nitrite (NEGATIVE) Urine Bilirubin (NEGATIVE) Urine Urobilinogen (0-1) mg/dL Urine WBC (Auto) (NEGATIVE) Urine RBC (Auto) (0-5) Dane/ul Urine Microscopic WBC (0-5) /HPF Ur Epithelial Cells (FEW) /HPF Urine Bacteria (NEGATIVE) /HPF Granular Casts (NEGATIVE) /LPF Urine Mucus (NEGATIVE) /HPF Salicylates < 2.8 L (2.8-20.0) mg/dl Urine Opiates Level (NEGATIVE) Ur Methadone (NEGATIVE) Acetaminophen < 2.0 L (10-30) ug/ml Urine Barbiturates (NEGATIVE) Ur Phencyclidine (PCP) (NEGATIVE) Urine Amphetamine (NEGATIVE) U Benzodiazepine Level (NEGATIVE) Urine Cocaine (NEGATIVE) Urine Marijuana (THC) (NEGATIVE) Ethyl Alcohol Urine Ethyl Alcohol (0.00-20) mg/dl Specimen Received 05/31/16 Range/Units 11:35 WBC (4.0-10.5) K/mm3 RBC (4.1-5.6) M/mm3 Hgb (12.5-18.0) gm/dl Hct (42-50) % MCV (78-100) fl MCH (26-32) pg MCHC (32-36) g/dl RDW (11.5-14.0) % Plt Count (150-450) K/mm3 MPV (6-9.5) fl Gran % (36.0-66.0) % Lymphocytes % (24.0-44.0) % Monocytes % (0.0-12.0) % Eosinophils % (0.00-5.0) % Basophils % (0.0-0.4) % Basophils # (0-0.4) INR (0.8-3.0) Sodium (136-145) mEq/L Potassium (3.5-5.1) mEq/L Chloride (98-107) mEq/L Carbon Dioxide (21-32) mEq/L Anion Gap (5-15) MEQ/L BUN (9-20) mg/dL Creatinine (0.55-1.30) mg/dl Estimated GFR ML/MIN Glucose (70-110) MG/DL Calcium (8.5-10.1) mg/dL Magnesium (1.8-2.4) mg/dL Total Bilirubin (0.2-1.0) mg/dL AST (15-37) U/L ALT (12-78) U/L Alkaline Phosphatase (46-116) U/L Serum Total Protein (6.4-8.2) gm/dL Albumin (3.4-5.0) g/dL Lipase (73-393) U/L Ur Collection Type Urine Color (YELLOW) Urine Appearance (CLEAR) Urine pH (5-6) Ur Specific Henniker (1.005-1.025) Urine Protein (Negative) Urine Glucose (UA) (NEGATIVE) mg/dL Urine Ketones (NEGATIVE) Urine Nitrite (NEGATIVE) Urine Bilirubin (NEGATIVE) Urine Urobilinogen (0-1) mg/dL Urine WBC (Auto) (NEGATIVE) Urine RBC (Auto) (0-5) Dane/ul Urine Microscopic WBC (0-5) /HPF Ur Epithelial Cells (FEW) /HPF Urine Bacteria (NEGATIVE) /HPF Granular Casts (NEGATIVE) /LPF Urine Mucus (NEGATIVE) /HPF Salicylates (2.8-20.0) mg/dl Urine Opiates Level (NEGATIVE) Ur Methadone (NEGATIVE) Acetaminophen (10-30) ug/ml Urine Barbiturates (NEGATIVE) Ur Phencyclidine (PCP) (NEGATIVE) Urine Amphetamine (NEGATIVE) U Benzodiazepine Level (NEGATIVE) Urine Cocaine (NEGATIVE) Urine Marijuana (THC) (NEGATIVE) Ethyl Alcohol SEE SEPARATE REPORT Urine Ethyl Alcohol (0.00-20) mg/dl Specimen Received - Progress Progress Note: 05/31/16 15:36 Pt improved with meds. Spoke to Kaitlin at [facility]. With hx of alcohol withdrawal seizures she advised medical admission and can do tele mental health consult if needed. Spoke to Dr Turk () who agrees for observation under alcohol protocol. BAL from [facility] send out is 105 mg/dl drawn at 1345. Discussed with : Burke Will see patient in: hospital (observation) Counseled pt/family regarding: lab results, diagnosis, need for follow-up - Departure Time of Disposition: 15:38 Departure Disposition: Observation Clinical Impression: Alcohol withdrawal syndrome Qualifiers: Complication of substance-induced condition: uncomplicated Qualified Code(s): F10.230 - Alcohol dependence with withdrawal, uncomplicated Depression Qualifiers: Depression Type: major depressive disorder Active/Remission status: currently active Major depression episode severity: moderate Condition: Fair Critical Care Time: No
[2016-05-31 14:22] LABS: INR 1.06 (0.8-3.0); PROTIME 11.8 SECONDS (8.83-12.87)
[2016-05-31 14:33] LABS: ACETAMINOPHEN < 2.0 ug/ml (10-30)
[2016-05-31 14:46] LABS: Collection Type CCMS; Ph 5.5 (5-6)
[2016-05-31 14:47] LABS: Bacteria RARE /HPF (NEGATIVE); COMPLETE URINE MICROSCOPIC? YES; Epithelial Cells FEW /HPF (FEW); GRANULAR CASTS 0-2 /LPF (NEGATIVE); Mucus MODERATE /HPF (NEGATIVE); WBC 0-2 /HPF (0-5)
[2016-05-31] MEDS ORDERED: Magnesium 1 Gm / 100 Ml D5W*** 100 ML IV ONE (14:49)
[2016-05-31] MEDS: Magnesium 1 Gm / 100 Ml D5W*** 100 ML IV SCH ×2 (14:51→17:19)
[2016-05-31] MEDS: Dextrose 5%-Lr IV Solution 1000 ML 1,000 ML IV SCH (15:07)
[2016-05-31] MEDS ORDERED: TYLENOL 325 MG PO PRN (16:38)
[2016-05-31] MEDS: Ativan 2 MG/1 ML VIAL IV PRN ×3 (17:19→22:02)
[2016-06-01] MEDS: Ativan 2 MG/1 ML VIAL IV PRN ×8 (00:03→22:22)
[2016-06-01] MEDS ORDERED: Zofran 4 MG/2 ML VIAL IV PRN (00:25)
[2016-06-01] MEDS: Dextrose 5%-Lr IV Solution 1000 ML 1,000 ML IV SCH ×2 (01:06→14:14)
[2016-06-01 05:52] LABS: ANION GAP 12.9 MEQ/L (5-15); BLOOD UREA NITROGEN 12 mg/dL (9-20); CHLORIDE 103 mEq/L (98-107); Carbon Dioxide 29.1 mEq/L (21-32); Glucose 101 MG/DL (70-110); MAGNESIUM 2.1 mg/dL (1.8-2.4); Potassium 4.3 mEq/L (3.5-5.1); SODIUM 141 mEq/L (136-145)
[2016-06-01] MEDS: FOLATE 1 MG PO SCH (08:57)
[2016-06-01] MEDS: THERAGRAN MULTIVITAMIN PO SCH (08:57)
[2016-06-01] MEDS: VITAMIN B-1 100 MG PO SCH (08:57)
[2016-06-01] MEDS: Protonix 40MG Tablet PO SCH (08:59)
--- NOTE | 2016-06-01 09:03 | HP ---
HISTORY OF PRESENT ILLNESS: This is a 41 year-old man who presented to the emergency department brought in by his father who does not have a primary care doctor. The patient reports that he had been drinking for one week straight and over the last week he has had 3 - one half gallon bottles of vodka and 30 to 40 - 24 ounce beers that were stronger proof than the normal beer. He reports that he only had a two day period where he feels normal and then there is something that triggers him and he starts drinking. He states that he is antisocial and will get angry and escape to drink. He reports that he just maintains a level where people cannot really tell that he is drinking until midnight and then he will drink more to help him go to sleep. He states that he has insomnia when he is sober. He states yesterday he had a melt down with his dad and had thoughts of hurting himself. He said, "I was going to end it quick". He states it is too easy to get alcohol when he is not in the hospital. He reports that he has not been happy for ten years. He feels like there is something that triggers him to drink. He reports he has talked to therapists in the past and ends up going back to the alcohol. He wants to have inpatient treatment for his alcoholism as he states he wants to quit using alcohol. REVIEW OF SYSTEMS: He has had some nausea, vomiting. He has had some cough productive of some phlegm. He denies any chest pain. No dyspnea. He reports a pressure on his head since he got here yesterday and his left eye was blurry and states that has gotten better. He reports the pressure on his head goes away whenever he does drink alcohol. He reports some epigastric pain last night that was sharp and lasted for about ten minutes. He had some dysuria. No lower extremity edema. No rashes. He reports body odor of the feet even with washing them. PAST MEDICAL HISTORY: Hypertension. History of pancreatitis. Alcohol abuse. History of depression. PAST SURGICAL HISTORY: None. MEDICATIONS: Fluoxetine 20 mg p.o. daily which he has taken for approximately three weeks. Lisinopril 20 mg p.o. daily. ALLERGIES: NKDA. SOCIAL HISTORY: He smokes one pack per day. He denies needing a nicotine patch. He denies any illicit drugs. He reports that he is staying with his father at home but his father cannot continue to have him stay there when he continues to drink alcohol. FAMILY HISTORY: His father is living and history of back problems, colon cancer, lymphoma and skin cancer. His mother is living and has history of hip pain. PHYSICAL EXAMINATION: VITAL SIGNS: Temperature current 97.6F, temperature max 98.8F, heart rate 71 to 132 currently 71, respiratory rate 16 to 24 currently 20, blood pressure 92 to 142 over 51 to 110 currently 142/93. Oxygen saturation 94 to 100% on room air. GENERAL: The patient is sitting up talkative and in no acute distress. He reports that he has had thoughts of hurting himself and has had a plan. CVS: He has a regular rate and rhythm. No murmurs, gallops or rubs. CHEST: Clear to auscultation bilaterally. No crackles or wheezes. ABDOMEN: Mild epigastric tenderness. No guarding. No rigidity. Normal bowel sounds. EXTREMITIES: No clubbing, cyanosis or edema. SKIN: Warm, dry and intact. LABORATORY DATA AND TESTS: His CBC was within normal limits on admission. Sodium 135 now 141. Chloride 97 now 103. Magnesium 1.5 now 2.1. UA revealed few epithelial cells and rare bacteria. Urine tox was negative. Ethanol alcohol level was elevated. ASSESSMENT AND PLAN: 1) SUICIDAL IDEATION: The patient reports that he has had a plan to hurt himself. Will ask for [facility] tele-medicine consult. Most likely he will need an inpatient stay. 2) HISTORY OF ALCOHOL ABUSE: The patient reports that he wants quit using alcohol. 3) HYPERTENSION: I will restart lisinopril. 4) HISTORY OF DEPRESSION: Will continue with fluoxetine. 5) DEEP VENOUS THROMBOSIS PROPHYLAXIS: Will start him on Lovenox.
[2016-06-01] MEDS: ENOXAPARIN SODIUM SQ SCH (12:23)
[2016-06-01] MEDS: Prozac 20 MG PO SCH (12:23)
[2016-06-01] MEDS: Zestril 20 MG PO SCH (12:30)
[2016-06-01] MEDS ORDERED: NORVASC 5 MG PO ONE (17:18)
[2016-06-01 18:55] LABS: CHLAMYDIA URINE NEGATIVE; GC URINE NEGATIVE
[2016-06-02] MEDS: Ativan 2 MG/1 ML VIAL IV PRN ×7 (00:28→21:33)
--- NOTE | 2016-06-02 08:45 | PCM.NOTE ---
Date and Time: 06/02/16 0840 Subjective Assessment: His nurse yesterday reported that [facility] wanted to wait and do the consult when he would be stable enough to transfer to him. He continues to have some upset stomach, vomiting and required 18 mg of IV ativan over the past 24 hours. He reports he feels guilty and like a burden and doesn't want to all the nurses. He reports having diarrhea yesterday and not being able to get to the bathroom quick enough. His nurse yesterday told me he was seeing things that weren't there. The patient states this morning that this is better. - Review of Systems Respiratory: No Symptoms Cardiac: No Symptoms Abdominal/Gastrointestinal: Nausea, Vomiting, Diarrhea Genitourinary Symptoms: No Symptoms Musculoskeletal: No Symptoms Skin: No Symptoms Neurological: No Symptoms Psychological: Alcohol Abuse, Anxiety Endocrine: No Symptoms Hematologic/Lymphatic: No Symptoms Objective Exam General Appearance: no apparent distress, alert, other (episode of small amount of emesis while I was in the room. He had eaten his entire breakfast which included eggs.) Neurologic Exam: alert, cooperative, other (guarded affect) Skin Exam: normal color, warm, dry, No rash Respiratory Exam: normal breath sounds, lungs clear, No respiratory distress, No accessory muscle use, No crackles/rales, No rhonchi, No wheezing Cardiovascular Exam: regular rate/rhythm, normal heart sounds, No murmur, No friction rub, No gallop Gastrointestinal/Abdomen Exam: soft, normal bowel sounds, No tenderness, No distention, No mass, No guarding Extremity Exam: other (no c/c/e) OBJECTIVE DATA Vital Signs: Vital Signs - 24 hr Temp Pulse Resp BP Pulse Ox 06/02/16 08:00 98.3 F 63 20 139/89 93 L 06/02/16 03:08 97.8 F 69 18 143/94 96 06/01/16 23:34 98.2 F 81 18 138/83 97 06/01/16 19:48 98.1 F 87 20 143/81 97 06/01/16 16:45 82 16 167/102 95 06/01/16 16:04 84 14 06/01/16 12:00 82 20 138/98 96 Pain Assessment - Last Documented Pain Intensity 0 Pain Scale Used 0-10 Pain Scale Intake and Output: Intake & Output 0206/01/16 06/02/16 06/03/16 06:59 06:59 06:59 06:59 Intake Total 2270 1861 Output Total 600 400 Balance 1670 1461 Weight 94.801 kg 97.341 kg Lab Results: Lab Results-Last 24 Hours 06/01/16 06/01/16 Range/Units 05:00 16:30 Ethyl Alcohol (0.00-0.01) % Chlamydia DNA (PCR) NEGATIVE Urine GC DNA Probe NEGATIVE Assessment/Plan (1) Alcohol withdrawal syndrome Current Visit: Yes Status: Acute Qualifiers: Complication of substance-induced condition: uncomplicated Qualified Code(s ): F10.230 - Alcohol dependence with withdrawal, uncomplicated Assessment & Plan: Continue ativan IV as needed per the CIWA scale. If he requires less ativan in the next 24 hours, may be able to switch to librium and have [facility] complete their consult. Code(s): F10.239 - ALCOHOL DEPENDENCE WITH WITHDRAWAL, UNSPECIFIED (2) Suicidal ideation Current Visit: Yes Status: Acute Assessment & Plan: When he is medically stable, will consult with [facility] with plans for transfer to inpatient stay for treatment and stabilization. Code(s): R45.851 - SUICIDAL IDEATIONS (3) Hypertension Current Visit: Yes Status: Acute Assessment & Plan: Amlodpine 5 mg po daily added yesterday. Continue with this and lisinopril. Currently well controlled. Code(s): I10 - ESSENTIAL (PRIMARY) HYPERTENSION (4) Nausea & vomiting Current Visit: Yes Status: Acute Assessment & Plan: Continue zofran as needed. Pt also has protonix ordered scheduled. Code(s): R11.2 - NAUSEA WITH VOMITING, UNSPECIFIED (5) Depression Current Visit: Yes Status: Acute Qualifiers: Depression Type: major depressive disorder Active/Remission status: currently active Major depression episode severity: moderate Assessment & Plan: Continue fluoxetine. Code(s): F32.9 - MAJOR DEPRESSIVE DISORDER, SINGLE EPISODE, UNSPECIFIED
[2016-06-02] MEDS: Protonix 40MG Tablet PO SCH (09:00)
[2016-06-02] MEDS: NORVASC 5 MG PO SCH (09:00)
[2016-06-02] MEDS: Zestril 20 MG PO SCH (09:00)
[2016-06-02] MEDS: FOLATE 1 MG PO SCH (09:00)
[2016-06-02] MEDS: VITAMIN B-1 100 MG PO SCH (09:00)
[2016-06-02] MEDS: ENOXAPARIN SODIUM SQ SCH (09:01)
[2016-06-02] MEDS: THERAGRAN MULTIVITAMIN PO SCH (09:01)
[2016-06-02] MEDS: Prozac 20 MG PO SCH (09:01)
[2016-06-02] MEDS: Dextrose 5%-Lr IV Solution 1000 ML 1,000 ML IV SCH (23:27)
[2016-06-03] MEDS: Ativan 2 MG/1 ML VIAL IV PRN ×2 (08:22)
[2016-06-03] MEDS ORDERED: Librium 10 MG PO PRN (08:23)
--- NOTE | 2016-06-03 08:31 | PCM.NOTE ---
Date and Time: 06/03/16824 Subjective Assessment: Patient reports that he has not needed any IV ativan since midnight but that he is having some anxiety so his nurse is bringing in a dose for him. He had his [facility] consult yesterday and they are recommending inpatient treatment for dual diagnosis. Discharge planning is working on a bed. Patient reports some stomach cramping but denies any further diarrhea or vomiting. - Review of Systems Constitutional: No Symptoms Eyes: No Symptoms Ears, Nose, & Throat: No Symptoms Respiratory: No Symptoms Cardiac: No Symptoms Abdominal/Gastrointestinal: Abdominal Pain, No Nausea, No Vomiting, No Diarrhea Genitourinary Symptoms: No Symptoms Musculoskeletal: No Symptoms Psychological: Alcohol Abuse, Anxiety Endocrine: No Symptoms Hematologic/Lymphatic: No Symptoms Objective Exam General Appearance: no apparent distress, alert, anxiety, No mild distress Neurologic Exam: alert, cooperative, normal mood/affect Skin Exam: normal color, warm, dry, No rash Respiratory Exam: normal breath sounds, lungs clear, No respiratory distress, No accessory muscle use, No prolonged expirations, No crackles/rales Cardiovascular Exam: regular rate/rhythm, normal heart sounds, No murmur, No friction rub, No gallop Gastrointestinal/Abdomen Exam: soft, normal bowel sounds, No tenderness, No distention, No mass Extremity Exam: normal inspection, other (no c/c/e) OBJECTIVE DATA Vital Signs: Vital Signs - 24 hr Temp Pulse Resp BP Pulse Ox 06/03/16 07:50 97.8 F 68 20 124/83 95 06/03/16 04:00 97.8 F 63 22 133/87 96 06/03/16 00:00 98.5 F 81 14 159/89 96 06/02/16 19:38 98.5 F 93 H 20 140/82 96 06/02/16 16:00 98.5 F 70 20 125/80 94 L 06/02/16 11:20 98.4 F 90 20 121/69 96 Pain Assessment - Last Documented Pain Intensity 2 Pain Scale Used 0-10 Pain Scale Intake and Output: Intake & Output 06/01/16 06/02/16 06/03/16 06/04/16 06:59 06:59 06:59 06:59 Intake Total 2270 1861 2837 Output Total 600 400 Balance 1670 1461 2837 Weight 94.801 kg 97.341 kg 97.069 kg Assessment/Plan (1) Alcohol withdrawal syndrome Current Visit: Yes Status: Acute Qualifiers: Complication of substance-induced condition: uncomplicated Qualified Code(s ): F10.230 - Alcohol dependence with withdrawal, uncomplicated Assessment & Plan: I am starting librium 10 mg po q 6 hours as needed today to see if we can use this instead of IV ativan. Plan for inpatient treatment of dual diagnosis of alcohol abuse and depression when he his discharged from here. Code(s): F10.239 - ALCOHOL DEPENDENCE WITH WITHDRAWAL, UNSPECIFIED (2) Suicidal ideation Current Visit: Yes Status: Acute Assessment & Plan: He was seen by [facility] yesterday. Plan for inpatient treatment. Code(s): R45.851 - SUICIDAL IDEATIONS (3) Hypertension Current Visit: Yes Status: Acute Assessment & Plan: Currently well controlled on his currrent medications. Code(s): I10 - ESSENTIAL (PRIMARY) HYPERTENSION (4) Nausea & vomiting Current Visit: Yes Status: Resolved Assessment & Plan: Resolved. Code(s): R11.2 - NAUSEA WITH VOMITING, UNSPECIFIED (5) Depression Current Visit: Yes Status: Acute Qualifiers: Depression Type: major depressive disorder Active/Remission status: currently active Major depression episode severity: moderate Assessment & Plan: Continue fluoxetine. To have inpatient treatment after discharge from here. Code(s): F32.9 - MAJOR DEPRESSIVE DISORDER, SINGLE EPISODE, UNSPECIFIED
[2016-06-03] MEDS: THERAGRAN MULTIVITAMIN PO SCH (10:06)
[2016-06-03] MEDS: FOLATE 1 MG PO SCH (10:06)
[2016-06-03] MEDS: Protonix 40MG Tablet PO SCH (10:06)
[2016-06-03] MEDS: Zestril 20 MG PO SCH (10:06)
[2016-06-03] MEDS: VITAMIN B-1 100 MG PO SCH (10:06)
[2016-06-03] MEDS: ENOXAPARIN SODIUM SQ SCH (10:07)
[2016-06-03] MEDS: NORVASC 5 MG PO SCH (10:07)
[2016-06-03] MEDS: Prozac 20 MG PO SCH ×2 (10:08→10:19)
[2016-06-03] MEDS: Dextrose 5%-Lr IV Solution 1000 ML 1,000 ML IV SCH (16:22)
[2016-06-03 17:14] VITALS: BP 128/73; PULSE 79; O2SAT 95
== END 2016-06-03 17:20 ==
LOC: ED 13:18 → ICU 16:30 → MED SURG 06-01 17:21
PROVIDERS: ADMIT Internal Medicine; ATTEND Internal Medicine
DX: R45.851 Suicidal ideations (principal); F10.10 Alcohol abuse, uncomplicated; I10 Essential (primary) hypertension; R11.2 Nausea with vomiting, unspecified; F32.9 Major depressive disorder, single episode, unspecified; F41.9 Anxiety disorder, unspecified; F10.239 Alcohol dependence with withdrawal, unspecified; Z79.899 Other long term (current) drug therapy
CPT/HCPCS: 36000; 36415; 80048; 80053; 80307; 80320; 81000; 83690; 83735; 83986; 85025; 85610; 87491; 87591; 90791; 93005; 93268; 96360; 96365; 96372; 96374; 96376; 99284; 99285; G0378; G0481; J1650; J2060; J2405; J3475

== ENCOUNTER 2016-06-24 16:23 | Observation (INO) | payer OTHER ==
[2016-06-24] MEDS ORDERED: THIAMINE 200 MG/2 ML IV ONE (16:25)
[2016-06-24] MEDS ORDERED: Sodium Chloride 0.9% 1000 ML 1,000 ML IV SCH (16:30)
[2016-06-24] MEDS ORDERED: Sodium Chloride 0.9% 1000 ML 1,000 ML ONE (16:34)
[2016-06-24] MEDS ORDERED: THIAMINE 200 MG/2 ML ONE (16:34)
[2016-06-24] MEDS ORDERED: Zofran 4 MG/2 ML VIAL IV ONE (16:53)
[2016-06-24] MEDS ORDERED: Zofran 4 MG/2 ML VIAL ONE (16:54)
[2016-06-24 16:59] LABS: BASOPHIL % 0.3 % (0.0-0.4); Eosinophil % 0.6 % (0.00-5.0); Granulocytes % 48.2 % (36.0-66.0); Lymphocytes % 39.9 % (24.0-44.0); Mean Cell Volume 90.5 fl (78-100); Mean Platelet Volume 9.2 fl (6-9.5); Platelet Count 308 K/mm3 (150-450); Red Blood Count 5.46 M/mm3 (4.1-5.6); Red Cell Distribution Width 14.9 % (11.5-14.0); White Blood Count 6.7 K/mm3 (4.0-10.5)
--- NOTE | 2016-06-24 17:08 | ERPHSYRPT ---
- History of Present Illness Time Seen by Provider: 06/24/16 16:59 Source: patient Exam Limitations: no limitations Patient Subjective Stated Complaint: EMS states pt's dad reported that he found patient on porch having a seizure. Pt does not recall having the seizure but states that he has a terrible head now. Had a beer one hour ago. Triage Nursing Assessment: Pt alert and oriented x3. skin pink warm and dry. afebrile. pupils 5mm equal and reactive. siebel crm developer equal. right arm twitching Physician History: This is a 41-year-old white male who is brought by medics with complaint that the patient was found on his father's porch having a seizure. Patient states he cannot recall having a seizure. He does state that he has a long history of alcohol use he has been drinking daily for approximately a month he states he has not gone any long periods without drinking he drank 2 large beers earlier today than he had one beer approximately one hour ago. When I asked him why he was brought here he states "because I'm a worthless alcoholic. He. does have a history of alcohol withdrawal seizures and an chronic alcohol use Past medical history includes migraines, seizures, sleep apnea, angina, high blood pressure, pancreatitis, fractures, attention deficit disorder, depression , eating disorder, panic disorder also history of paranoid disorder Last seizure was 4-5 months ago Patient states he drinks as much his he can daily Apparently had 10 beers last night into this morning. He states he does smoke tobacco he denies illicit drug use. Timing/Duration: today Severity: moderate Modifying Factors: Improves With: nothing Associated Symptoms: nausea, vomiting, headaches, seizure, No abdominal pain, No shortness of breath, No heartburn, No diaphoresis, No cough, No chest pain, No fever, No loss of appetite, No malaise, No rash, No syncope, No weakness Allergies/Adverse Reactions: No Known Drug Allergies Allergy (Verified 06/24/16 16:30) Hx Tetanus, Diphtheria Vaccination/Date Given: Yes Hx Influenza Vaccination/Date Given: Yes Hx Pneumococcal Vaccination/Date Given: No - Review of Systems Constitutional: No Fever, No Chills Eyes: No Symptoms Ears, Nose, & Throat: No Symptoms, No Ear Pain, No Ear Discharge, No Hearing Changes, No Tinnitus, No Nose Pain, No Nose Congestion, No Nose Discharge, No Sinus Drainage, No Epistaxis, No Mouth Pain, No Mouth Swelling, No Loose Teeth, No Throat Pain, No Throat Swelling, No Hoarse, No Painful Swallowing, No Snoring , No Stridor Respiratory: No Cough, No Dyspnea Cardiac: No Chest Pain, No Edema, No Syncope Abdominal/Gastrointestinal: Nausea, Vomiting, No Abdominal Pain, No Diarrhea Genitourinary Symptoms: No Dysuria Musculoskeletal: No Back Pain, No Neck Pain Skin: No Rash Neurological: Headache, Seizure, No Dizziness, No Focal Weakness, No Gait Changes, No Irritability, No Lethargy, No Paralysis, No Parasthesia, No Sensory Changes, No Speech Changes, No Tics, No Tremors, No Vertigo Psychological: No Symptoms Endocrine: No Symptoms All Other Systems: Reviewed and Negative - Past Medical History Pertinent Past Medical History: Yes Neurological History: Migraines, Seizures ENT History: No Pertinent History Cardiac History: Angina, Hypertension, Other Respiratory History: Sleep Apnea Endocrine Medical History: No Pertinent History Musculoskeletal History: Fractures GI Medical History: Pancreatitis History: No Pertinent History Psycho-Social History: Attention Deficit Disorder, Depression, Eating Disorders , Panic Disorder, Other Male Reproductive Disorders: No Pertinent History Other Medical History: last seizure possibly in 4-5 months ago Dec 2015). - Liver sonogram- pt states "they said my liver is scratched.". - heart murmur when a child". broken fingers/lt ankle, paranoia. 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 - Past Surgical History Past Surgical History: No Neuro Surgical History: No Pertinent History Cardiac: No Pertinent History Respiratory: No Pertinent History Gastrointestinal: No Pertinent History Genitourinary: No Pertinent History Musculoskeletal: No Pertinent History Male Surgical History: No Pertinent History - Social History Smoking Status: Current every day smoker How long have you smoked: 10 Exposure to second hand smoke: Yes Drug Use: none Patient Lives Alone: No - Nursing Vital Signs Nursing Vital Signs: Initial Vital Signs Temperature 98.7 F Temperature Source Oral Pulse Rate 113 Respiratory Rate 18 Blood Pressure [Left Arm] 156/105 Pain Intensity 6 - Physical Exam General Appearance: other (well-developed well-nourished white male, he is alert , oriented 3 somewhat flushed in appearance) Eye Exam: PERRL/EOMI, eyes nml inspection Ears, Nose, Throat Exam: normal ENT inspection, TMs normal, pharynx normal, moist mucous membranes Neck Exam: normal inspection, non-tender, supple, full range of motion Respiratory Exam: normal breath sounds, lungs clear, No respiratory distress Cardiovascular Exam: regular rate/rhythm, normal heart sounds, normal peripheral pulses Gastrointestinal/Abdomen Exam: soft, normal bowel sounds, No tenderness, No mass Back Exam: normal inspection, normal range of motion, No CVA tenderness, No vertebral tenderness Extremity Exam: normal inspection, normal range of motion, pelvis stable Neurologic Exam: alert, oriented x 3, cooperative, normal mood/affect, nml cerebellar function, nml station & gait, sensation nml, No motor deficits Skin Exam: normal color, warm, dry, No rash Lymphatic Exam: No adenopathy SpO2 Interpretation: normal (96%) SpO2: 96 Oxygen Delivery: Room Air - Course Nursing assessment & vital signs reviewed: Yes EKG Interpreted by Me: RATE (109 bpm), Sinus Tach, NORMAL AXIS, Other (EKG, sinus tachycardia, 109 bpm, normal axis, no acute ST or T wave changes noted) Ordered Tests: Active Orders 24 hr Category Date Time Status Accucheck STAT Care 06/24/16 16:25 Active EKG-ER Only STAT Care 06/24/16 16:25 Active IV Insertion STAT Care 06/24/16 16:25 Active ACETAMINOPHEN Stat Lab 06/24/16 16:50 Completed AMYLASE Stat Lab 06/24/16 16:50 Completed CBC W DIFF Stat Lab 06/24/16 16:50 Completed CMP Stat Lab 06/24/16 16:50 Completed Ethyl Alcohol,Urine Stat Lab 06/24/16 17:43 Completed LIPASE Stat Lab 06/24/16 16:50 Completed SALICYLATE Stat Lab 06/24/16 16:50 Completed TROPONIN Stat Lab 06/24/16 16:52 Completed UA W/ MICROSCOPIC Stat Lab 06/24/16 18:00 Completed Urine Triage Profile Stat Lab 06/24/16 18:00 Completed Transfer Order Routine Transfer 06/24/16 19:36 Ordered Medication Summary Generic Name Dose Route Start Last Admin Trade Name Freq PRN Reason Stop Dose Admin Sodium Chloride 1,000 mls @ 100 mls/hr 06/24/16 16:30 06/24/16 16:41 Sodium Chloride 0.9% 1000 Ml IV 07/24/16 16:29 100 mls/hr .Q10H BOO Administration Discontinued Medications Generic Name Dose Route Start Last Admin Trade Name Freq PRN Reason Stop Dose Admin Sodium Chloride Confirm 06/24/16 16:34 Sodium Chloride 0.9% 1000 Ml Administered 06/24/16 16:35 Dose 1,000 mls @ ud .ROUTE .STK-MED ONE Ondansetron HCl 4 mg 06/24/16 16:53 06/24/16 16:56 Zofran 4 Mg/2 Ml Vial IV 06/24/16 16:54 4 mg STAT ONE Administration Ondansetron HCl Confirm 06/24/16 16:54 Zofran 4 Mg/2 Ml Vial Administered 06/24/16 16:55 Dose 4 mg .ROUTE .STK-MED ONE Thiamine HCl 100 mg 06/24/16 16:25 06/24/16 16:41 Thiamine 200 Mg/2 Ml IV 06/24/16 16:26 100 mg STAT ONE Administration Thiamine HCl Confirm 06/24/16 16:34 Thiamine 200 Mg/2 Ml Administered 06/24/16 16:35 Dose 200 mg .ROUTE .STK-[facility] ONE Lab/Rad Data: Laboratory Result Diagrams 06/24/16 16:50 06/24/16 16:50 Laboratory Results 06/24/16 06/24/16 06/24/16 Range/Units 18:00 18:00 17:43 WBC (4.0-10.5) K/mm3 RBC (4.1-5.6) M/mm3 Hgb (12.5-18.0) gm/dl Hct (42-50) % MCV (78-100) fl MCH (26-32) pg MCHC (32-36) g/dl RDW (11.5-14.0) % Plt Count (150-450) K/mm3 MPV (6-9.5) fl Gran % (36.0-66.0) % Lymphocytes % (24.0-44.0) % Monocytes % (0.0-12.0) % Eosinophils % (0.00-5.0) % Basophils % (0.0-0.4) % Basophils # (0-0.4) Sodium (136-145) mEq/L Potassium (3.5-5.1) mEq/L Chloride (98-107) mEq/L Carbon Dioxide (21-32) mEq/L Anion Gap (5-15) MEQ/L BUN (9-20) mg/dL Creatinine (0.55-1.30) mg/dl Estimated GFR ML/MIN Glucose (70-110) MG/DL Calcium (8.5-10.1) mg/dL Total Bilirubin (0.2-1.0) mg/dL AST (15-37) U/L ALT (12-78) U/L Alkaline Phosphatase (46-116) U/L Troponin I (0.000-0.056) ng/ml Serum Total Protein (6.4-8.2) gm/dL Albumin (3.4-5.0) g/dL Amylase (25-115) U/L Lipase (73-393) U/L Ur Collection Type CLEAN CATCH Urine Color YELLOW (YELLOW) Urine Appearance CLEAR (CLEAR) Ur Specific Imperial 1.010 (1.005-1.025) Urine Protein 100 (Negative) Urine Glucose (UA) NEGATIVE (NEGATIVE) mg/dL Urine Ketones NEGATIVE (NEGATIVE) Urine Nitrite NEGATIVE (NEGATIVE) Urine Bilirubin NEGATIVE (NEGATIVE) Urine Urobilinogen 0.2 (0-1) mg/dL Urine WBC (Auto) NEGATIVE (NEGATIVE) Urine RBC (Auto) TRACE-INTACT (0-5) Dane/ul Urine Microscopic RBC 0-2 (0-2) /HPF Urine Bacteria FEW (NEGATIVE) /HPF Salicylates (2.8-20.0) mg/dl Urine Opiates Level NEG. (NEGATIVE) Ur Methadone NEG. (NEGATIVE) Acetaminophen (10-30) ug/ml Urine Barbiturates NEG. (NEGATIVE) Ur Phencyclidine (PCP) NEG. (NEGATIVE) Urine Amphetamine NEG. (NEGATIVE) U Benzodiazepine Level POS. (NEGATIVE) Urine Cocaine NEG. (NEGATIVE) Urine Marijuana (THC) NEG. (NEGATIVE) Urine pH 5.0 5.0 (3-8.5) Urine Ethyl Alcohol 349 H (0.00-20) mg/dl Specimen Received [id number] 06/24/16 06/24/16 06/24/16 Range/Units 16:52 16:50 16:50 WBC 6.7 (4.0-10.5) K/mm3 RBC 5.46 (4.1-5.6) M/mm3 Hgb 16.9 (12.5-18.0) gm/dl Hct 49.4 (42-50) % MCV 90.5 (78-100) fl MCH 31.0 (26-32) pg MCHC 34.2 (32-36) g/dl RDW 14.9 H (11.5-14.0) % Plt Count 308 (150-450) K/mm3 MPV 9.2 (6-9.5) fl Gran % 48.2 (36.0-66.0) % Lymphocytes % 39.9 (24.0-44.0) % Monocytes % 11.0 (0.0-12.0) % Eosinophils % 0.6 (0.00-5.0) % Basophils % 0.3 (0.0-0.4) % Basophils # 0.02 (0-0.4) Sodium 142 (136-145) mEq/L Potassium 4.0 (3.5-5.1) mEq/L Chloride 104 (98-107) mEq/L Carbon Dioxide 22.3 (21-32) mEq/L Anion Gap 19.4 H (5-15) MEQ/L BUN 13 (9-20) mg/dL Creatinine 0.91 (0.55-1.30) mg/dl Estimated GFR > 60 ML/MIN Glucose 102 (70-110) MG/DL Calcium 8.4 L (8.5-10.1) mg/dL Total Bilirubin 0.4 (0.2-1.0) mg/dL AST 59 H (15-37) U/L ALT 58 (12-78) U/L Alkaline Phosphatase 98 (46-116) U/L Troponin I < 0.017 (0.000-0.056) ng/ml Serum Total Protein 8.9 H (6.4-8.2) gm/dL Albumin 4.0 (3.4-5.0) g/dL Amylase 49 (25-115) U/L Lipase 123 (73-393) U/L Ur Collection Type Urine Color (YELLOW) Urine Appearance (CLEAR) Ur Specific Imperial (1.005-1.025) Urine Protein (Negative) Urine Glucose (UA) (NEGATIVE) mg/dL Urine Ketones (NEGATIVE) Urine Nitrite (NEGATIVE) Urine Bilirubin (NEGATIVE) Urine Urobilinogen (0-1) mg/dL Urine WBC (Auto) (NEGATIVE) Urine RBC (Auto) (0-5) Dane/ul Urine Microscopic RBC (0-2) /HPF Urine Bacteria (NEGATIVE) /HPF Salicylates < 2.8 L (2.8-20.0) mg/dl Urine Opiates Level (NEGATIVE) Ur Methadone (NEGATIVE) Acetaminophen < 2.0 L (10-30) ug/ml Urine Barbiturates (NEGATIVE) Ur Phencyclidine (PCP) (NEGATIVE) Urine Amphetamine (NEGATIVE) U Benzodiazepine Level (NEGATIVE) Urine Cocaine (NEGATIVE) Urine Marijuana (THC) (NEGATIVE) Urine pH (3-8.5) Urine Ethyl Alcohol (0.00-20) mg/dl Specimen Received - Progress Progress: improved Progress Note: 06/24/16 19:33 Patient appears to be stable at this time. Unfortunately patient has a alcohol level of 349. He is stating he has been quite anxious lately as well. Case is discussed with Dr. Bush. Will place patient on ICU. Diagnosis alcohol intoxication, alcohol toxicity, seizure. - Departure Time of Disposition: 19:34 Departure Disposition: Observation (Icu observation, Dr Bush for Dr Austin) Clinical Impression: ALCOHOL TOXICITY, Seizure Alcohol intoxication Qualifiers: Complication of substance-induced condition: with unspecified complication Qualified Code(s): F10.129 - Alcohol abuse with intoxication, unspecified Condition: Fair Critical Care Time: No Referrals: BRIANNA AUSTIN [Primary Care Provider] -
[2016-06-24 17:22] LABS: ALKALINE PHOSPHATASE 98 U/L (46-116); ANION GAP 19.4 MEQ/L (5-15); BILIRUBIN,TOTAL 0.4 mg/dL (0.2-1.0); BLOOD UREA NITROGEN 13 mg/dL (9-20); CHLORIDE 104 mEq/L (98-107); Carbon Dioxide 22.3 mEq/L (21-32); Glucose 102 MG/DL (70-110); LIPASE 123 U/L (73-393); SGOT/AST 59 U/L (15-37); SGPT/ALT 58 U/L (12-78); SODIUM 142 mEq/L (136-145); Total Protein 8.9 gm/dL (6.4-8.2)
[2016-06-24 17:38] LABS: ACETAMINOPHEN < 2.0 ug/ml (10-30)
[2016-06-24 18:28] LABS: Collection Type CLEAN CATCH
[2016-06-24 18:29] LABS: Bacteria FEW /HPF (NEGATIVE); COMPLETE URINE MICROSCOPIC? YES
[2016-06-24] MEDS ORDERED: Ativan 2 MG/1 ML VIAL IV ONE (19:44)
[2016-06-24] MEDS ORDERED: Ativan 2 MG/1 ML VIAL ONE (19:46)
[2016-06-24] MEDS ORDERED: Zofran 4 MG/2 ML VIAL IV PRN (20:48)
[2016-06-24] MEDS ORDERED: Ativan 0.5 MG PO PRN (22:27)
[2016-06-24] MEDS ORDERED: Ativan 1 MG PO SCH (22:30)
[2016-06-24] MEDS ORDERED: NORVASC 5 MG PO ONE (22:34)
[2016-06-24] MEDS ORDERED: Zestril 20 MG PO ONE (22:35)
[2016-06-24] MEDS ORDERED: Prozac 20 MG PO ONE (22:40)
[2016-06-24] MEDS: Abilify 10 MG PO SCH (23:00)
[2016-06-24] MEDS: Ativan 1 MG PO SCH (23:01)
[2016-06-25] MEDS: Ativan 1 MG PO SCH ×3 (01:40→09:34)
[2016-06-25] MEDS: TYLENOL 325 MG PO PRN (02:49)
[2016-06-25] MEDS: Ativan 2 MG/1 ML VIAL IV PRN ×2 (02:50→08:22)
[2016-06-25] MEDS: Sodium Chloride 0.9% 1000 ML 1,000 ML IV SCH ×2 (04:09→14:00)
[2016-06-25] MEDS: Ativan 1 MG PO PRN ×2 (04:19→21:02)
[2016-06-25 06:03] LABS: BASOPHIL % 0.3 % (0.0-0.4); Eosinophil % 0.7 % (0.00-5.0); Granulocytes % 54.1 % (36.0-66.0); Lymphocytes % 32.1 % (24.0-44.0); Mean Cell Volume 92.1 fl (78-100); Mean Platelet Volume 9.6 fl (6-9.5); Monocytes % 12.8 % (0.0-12.0); Platelet Count 224 K/mm3 (150-450); Red Blood Count 4.55 M/mm3 (4.1-5.6); Red Cell Distribution Width 14.9 % (11.5-14.0); White Blood Count 5.9 K/mm3 (4.0-10.5)
[2016-06-25 06:45] LABS: ALBUMIN 3.5 g/dL (3.4-5.0); ALKALINE PHOSPHATASE 84 U/L (46-116); ANION GAP 18.3 MEQ/L (5-15); BILIRUBIN,TOTAL 0.6 mg/dL (0.2-1.0); BLOOD UREA NITROGEN 14 mg/dL (9-20); CHLORIDE 103 mEq/L (98-107); Carbon Dioxide 22.1 mEq/L (21-32); Glucose 91 MG/DL (70-110); Potassium 3.7 mEq/L (3.5-5.1); SGOT/AST 47 U/L (15-37); SGPT/ALT 51 U/L (12-78); SODIUM 140 mEq/L (136-145); Total Protein 7.5 gm/dL (6.4-8.2)
[2016-06-25] MEDS: NORVASC 5 MG PO SCH (09:33)
[2016-06-25] MEDS: Abilify 10 MG PO SCH ×2 (09:33→21:01)
[2016-06-25] MEDS: Zestril 20 MG PO SCH (09:34)
[2016-06-25] MEDS: Prozac 20 MG PO SCH (09:35)
[2016-06-25] MEDS ORDERED: NON-FORMULARY ITEM (Aripiprazole [Abilify] 5 MG) PO SCH (10:00)
--- NOTE | 2016-06-25 11:23 | PCM.HP ---
History of Present Illness - Chief Complaint Chief Complaint: seizure/ alcohol intoxication History of Present Illness: is a 41 year old male pt with PMHx alcoholism and seizures with withdrawal who had a witnessed seizure last night. His dad called EMS and he was brought to ER where he was found to have KATEY 0.345. He states he has been drinking a fifth of hard liquor and beer daily for the past 3 weeks. FOr the past 1 week he has not felt good and states he is not feeling good now, although he has difficulty telling me the symptoms. Pt is a poor to fair historian. He has had some diarrhea over the past week, subjective fevers. Suffers from chronic anxiety,PTSD, depression. He denies any suicidal ideation. About a month ago he was admitted to [facility] with alcohol intoxication, states he was begging for money in town and realized that was not a good thing to be doing. He went to "[employer]" program in [facility] when he got out he got a job and felt great about life and decided to celebrate. Apparently he has had several admissions this year for alcohol intoxication. Wonders if he has Munchuasen syndrome as he has been admitted so often recently. - Review of Systems Constitutional: Fever Abdominal/Gastrointestinal: Abdominal Pain, Diarrhea, Appetite Changes All Other Systems: Unable due to condition (limited due to intoxicated all week) Medications & Allergies Home Medications: Home Medication List Fluoxetine HCl [Prozac] 20 mg PO DAILY #30 capsule 05/07/16 [Rx Confirmed ] Lisinopril 20 mg [Zestril 20 MG] 20 mg PO DAILY #30 tablet 05/07/16 [Rx Confirmed 06/24/16] Amlodipine Besylate 5 mg [Norvasc 5 mg] 5 mg PO QAM #30 tablet 06/03/16 [ Rx Confirmed 06/24/16] Chlordiazepoxide HCl 10 mg [Librium 10 MG] 10 mg PO Q6H/PRN PRN #0 capsule 06/03/16 [Rx Confirmed 06/24/16] Aripiprazole [Abilify] 5 mg PO DAILY 06/24/16 [History Confirmed 06/24/16] Allergies/Adverse Reactions: Allergies Allergy/AdvReac Type Severity Reaction Status Date / Time No Known Drug Allergies Allergy Verified 06/24/16 16:30 - Past Medical History Past Medical History: Yes Neurological History: Migraines, Seizures ENT History: No Pertinent History Cardiac History: Angina, Hypertension, Other Respiratory History: Sleep Apnea Endocrine Medical History: No Pertinent History Musculoskelatal History: Fractures GI Medical History: Pancreatitis History: No Pertinent History Pyscho-Social History: Attention Deficit Disorder, Depression, Eating Disorders , Panic Disorder, Other Male Reproductive Disorders: No Pertinent History Comment: last seizure possibly in 4-5 months ago Dec 2015). -Liver sonogram- pt states "they said my liver is scratched.". - heart murmur when a child". broken fingers/lt ankle, paranoia. 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 - Past Surgical History Past Surgical History: No Neuro Surgical History: No Pertinent History Cardiac History: No Pertinent History Respiratory Surgery: No Pertinent History GI Surgical History: No Pertinent History Genitourinary Surgical Hx: No Pertinent History Musculskeletal Surgical Hx: No Pertinent History Male Surgical History: No Pertinent History - Social History Smoking Status: Current every day smoker How long have you smoked: 10 Exposure to second hand smoke: Yes Alcohol: Daily Drug Use: none - Physical Exam Vital Signs: Vital Signs - 24 hr Temp Pulse Resp BP Pulse Ox 06/25/16 08:00 98.4 F 95 H 22 121/73 95 06/25/16 04:00 101 H 23 118/75 96 06/25/16 00:01 117 H 06/25/16 00:00 98.6 F 117 H 14 144/92 06/24/16 21:57 16 06/24/16 20:57 98.6 F 103 H 22 144/93 96 06/24/16 19:50 104 H 14 160/90 94 L 06/24/16 19:41 96 06/24/16 16:57 113 H 156/105 96 06/24/16 16:23 98.7 F 116 H 18 152/102 97 General Appearance: no apparent distress, anxiety, other (tremor hands bilat) Neurologic Exam: alert, oriented x 3, cooperative Eye Exam: eyes nml inspection Ears, Nose, Throat Exam: moist mucous membranes, pharyngeal erythema, No tonsillar exudate Neck Exam: normal inspection, non-tender, No lymphadenopathy Respiratory Exam: normal breath sounds, lungs clear, No crackles/rales, No rhonchi, No wheezing Cardiovascular Exam: regular rate/rhythm, normal heart sounds, No murmur Gastrointestinal/Abdomen Exam: soft, tenderness (RUQ), No guarding, No rebound Back Exam: normal inspection Extremity Exam: No pedal edema, No swelling Skin Exam: normal color, warm, dry Results - Labs Lab/Micro Results: Lab Results-Last 24 Hours 06/24/16 06/25/16 06/25/16 Range/Units 23:04 05:08 05:08 WBC 5.9 (4.0-10.5) K/mm3 RBC 4.55 (4.1-5.6) M/mm3 Hgb 14.1 (12.5-18.0) gm/dl Hct 41.9 L (42-50) % MCV 92.1 (78-100) fl MCH 31.0 (26-32) pg MCHC 33.7 (32-36) g/dl RDW 14.9 H (11.5-14.0) % Plt Count 224 (150-450) K/mm3 MPV 9.6 H (6-9.5) fl Gran % 54.1 (36.0-66.0) % Lymphocytes % 32.1 (24.0-44.0) % Monocytes % 12.8 H (0.0-12.0) % Eosinophils % 0.7 (0.00-5.0) % Basophils % 0.3 (0.0-0.4) % Basophils # 0.02 (0-0.4) Sodium 140 (136-145) mEq/L Potassium 3.7 (3.5-5.1) mEq/L Chloride 103 (98-107) mEq/L Carbon Dioxide 22.1 (21-32) mEq/L Anion Gap 18.3 H (5-15) MEQ/L BUN 14 (9-20) mg/dL Creatinine 0.94 (0.55-1.30) mg/dl Estimated GFR > 60 ML/MIN Glucose 91 (70-110) MG/DL Calcium 7.9 L (8.5-10.1) mg/dL Total Bilirubin 0.6 (0.2-1.0) mg/dL AST 47 H (15-37) U/L ALT 51 (12-78) U/L Alkaline Phosphatase 84 (46-116) U/L Serum Total Protein 7.5 (6.4-8.2) gm/dL Albumin 3.5 (3.4-5.0) g/dL Acetaminophen < 2.0 L (10-30) ug/ml Assessment/Plan (1) Alcohol intoxication Current Visit: Yes Status: Acute Qualifiers: Complication of substance-induced condition: with unspecified complication Qualified Code(s): F10.129 - Alcohol abuse with intoxication, unspecified Assessment & Plan: Should not have alcohol withdrawal as yet, his last drink was yesterday just [employer]ST and he denies any decrease in drinking over the past several days. However , he does have tremors and anxiety so I will continue to treat with BZD for now. [facility] consult today. (2) Anxiety Current Visit: Yes Status: Acute Assessment & Plan: Treat with BZD for now. I have continued his abilify and SSRI. Apparently at his last admission he had suicidal ideations. [facility] to consult. Code(s): F41.9 - ANXIETY DISORDER, UNSPECIFIED (3) Seizure Current Visit: Yes Status: Acute Assessment & Plan: BZD Code(s): R56.9 - UNSPECIFIED CONVULSIONS (4) Depression Current Visit: No Status: Acute Qualifiers: Depression Type: major depressive disorder Active/Remission status: currently active Major depression episode severity: moderate Code(s): F32.9 - MAJOR DEPRESSIVE DISORDER, SINGLE EPISODE, UNSPECIFIED
[2016-06-25] MEDS ORDERED: Haldol 5 MG PO ONE (11:33)
[2016-06-25] MEDS ORDERED: BENADRYL 50 MG/ML IV ONE (11:34)
[2016-06-25] MEDS: Ativan 2 MG/1 ML VIAL IV SCH ×3 (11:53→20:03)
[2016-06-25] MEDS ORDERED: Bicillin L-A 1.2 Mu/2ML SYRINGE IM ONE (13:25)
[2016-06-25] MEDS ORDERED: BENADRYL 50 MG/ML ONE (20:58)
[2016-06-26] MEDS: Ativan 2 MG/1 ML VIAL IV SCH ×6 (00:09→20:47)
[2016-06-26] MEDS: Sodium Chloride 0.9% 1000 ML 1,000 ML IV SCH ×3 (00:09→20:38)
[2016-06-26] MEDS: Zestril 20 MG PO SCH (09:43)
[2016-06-26] MEDS: Prozac 20 MG PO SCH (09:43)
[2016-06-26] MEDS: Abilify 10 MG PO SCH ×2 (09:43→23:22)
[2016-06-26] MEDS: NORVASC 5 MG PO SCH (09:43)
--- NOTE | 2016-06-26 11:09 | PCM.DS ---
Discharge Summary Date of Admission: 06/24/16 20:13 Admitting Physician: DESTIN NUÑEZ Primary Care Provider: BRIANNA AUSTIN Allergies Allergies No Known Drug Allergies Allergy (Verified 06/24/16 16:30) Hospital Summary - Hospital Course Hospital Course: Pt admitted through ER with witnessed seizure; has had same in the past with alcohol withdrawal, he states. He was found to have urine alcohol of 349 at admission. He was admitted a month ago with alcohol intoxication and suicidal ideation and was sent to [facility] inpatient rehab/mental health and stayed for one week. He was sober briefly upon his release. He has been receiving scheduled ativan here with decrease in tremors. His blood pressures have been stable for the last 36 hours or so, 120s-130s systolic. He is tolerating po well. Has not voiced any suicidal ideation during this stay. [facility] consult recommended intensive outpatient treatment, no inpatient needed. Pt voices understanding of his need for treatment. On admission pt was found to have strep throat and was treated with bicillin LA IM. I decided to keep the patient at least another 24 hours as he is at higher risk for seizure activity or labile BP during that time. - Vitals & Intake/Output Vital Signs: Vital Signs Temperature 97.0 F 06/26/16 07:44 Pulse Rate 83 06/26/16 07:44 Respiratory Rate 20 06/26/16 07:44 Blood Pressure 131/74 06/26/16 07:44 O2 Sat by Pulse Oximetry 96 06/26/16 07:44 Intake & Output: Intake & Output 06/23/16 06/24/16 06/25/16 06/26/16 11:59 11:59 11:59 11:59 Intake Total 2784 3560 Balance 2784 3560 Weight 94.982 kg 96.388 kg - Lab Result Diagrams: 06/25/16 05:08 06/25/16 05:08 Lab Results-Last 24 Hrs: Lab Results-Last 24 Hours 06/25/16 06/25/16 06/25/16 Range/Units 11:45 11:45 12:40 Urine pH 7.0 (3-8.5) Urine Ethyl Alcohol 3 (0.00-20) mg/dl Influenza Type A Ag NEGATIVE (NEGATIVE) Influenza Type B Ag NEGATIVE (NEGATIVE) RSV (PCR) NEGATIVE (Negative) Streptococcus Screen POSITIVE (Negative) - Radiology Exams Ordered Rad Exams-Entire Visit: Radiology Procedures Category Date Time Status ABDOMINAL-LIMITED [US] Routine Exams 06/25/16 11:30 Taken - Procedures and Test Procedures and Tests throughout Hospitalization: Therapy Orders & Screens 06/24/16 21:35 Smoking Cessation Education ONCE Comment: Diagnosis: seizure/ alcohol intoxication Smoking Status: Current every day smoker How long have you smoked: 10 Have you smoked in the past 12 months: Yes Approximately how many cigarettes per day: 1 pack/dy Do you dip or chew tobacco: Yes Discharge Exam General Appearance: no apparent distress, other (faint bilat tremor of hands at rest) Neurologic Exam: alert, oriented x 3, cooperative Skin Exam: normal color, warm Eye Exam: eyes nml inspection Respiratory Exam: normal breath sounds, lungs clear, No crackles/rales, No rhonchi, No wheezing Cardiovascular Exam: regular rate/rhythm, normal heart sounds, No murmur Final Diagnosis/Problem List - Final Discharge Diagnosis/Problem (1) Alcohol withdrawal Current Visit: No Status: Acute Assessment & Plan: BP stable for the last 24+ hours; will keep observing, pt is at risk for labile bp. (2) Anxiety Current Visit: Yes Status: Acute Assessment & Plan: on ativan scheduled which is helping. (3) Seizure Current Visit: Yes Status: Acute Assessment & Plan: will do CT head today, none done in ER. Again, his alcohol level was quite high when he was admitted so I'm doubtful this seizure was from withdrawal. Last drink just prior to seizure. (4) Depression Current Visit: No Status: Acute Assessment & Plan: remain on prozac and abilify. (5) Alcohol abuse Current Visit: No Status: Acute Assessment & Plan: [facility] recommended intensive OP treatment. Pt voiced agreement. - Discharge Disposition: Home, Self-Care Condition: Fair Prescriptions: No Action Fluoxetine HCl [Prozac] 20 mg PO DAILY #30 capsule Lisinopril 20 mg [Zestril 20 MG] 20 mg PO DAILY #30 tablet Chlordiazepoxide HCl 10 mg [Librium 10 MG] 10 mg PO Q6H/PRN PRN #0 capsule PRN Reason: Anxiety Amlodipine Besylate 5 mg [Norvasc 5 mg] 5 mg PO QAM #30 tablet Aripiprazole [Abilify] 5 mg PO DAILY Follow up with: BRIANNA AUSTIN [Primary Care Provider] -
[2016-06-26] MEDS: TYLENOL 325 MG PO PRN (16:20)
--- NOTE | 2016-06-26 21:07 | XRAY ---
Indication: Seizure 2 days ago. Multiple contiguous axial images obtained through the head without contrast. Comparison: None Normal appearing brain parenchyma, ventricles, and bony calvarium. Visualized paranasal sinuses and mastoid air cells are pneumatized and clear. Impression: Normal CT head without contrast exam. Comment: Preliminary interpretation was made by [facility]. No discrepancy. CTDI 69.11
--- NOTE | 2016-06-26 21:08 | XRAY ---
Indication: Right upper quadrant pain. Two-dimensional right upper quadrant abdominal sonogram performed. Comparison: December 02, 2015. Gallbladder normally distended again without gallstones, wall thickening, or pericholecystic fluid. Common bile duct measures 3.9 mm. No intrahepatic biliary distention. Visualized portions of the liver, pancreas, and right kidney is sonographically unremarkable. Right kidney measures 11.6 cm in length. No ascites. Impression: Stable negative right upper quadrant sonogram. Comment: Preliminary report was given.
[2016-06-26] MEDS ORDERED: BENADRYL 25 MG CAPSULE PO PRN (22:27)
[2016-06-27] MEDS: Ativan 2 MG/1 ML VIAL IV SCH ×3 (00:02→07:43)
[2016-06-27] MEDS: Sodium Chloride 0.9% 1000 ML 1,000 ML IV SCH (06:18)
[2016-06-27] MEDS: NORVASC 5 MG PO SCH (07:43)
[2016-06-27] MEDS: Zestril 20 MG PO SCH (07:43)
[2016-06-27] MEDS: Prozac 20 MG PO SCH (07:43)
[2016-06-27] MEDS: Abilify 10 MG PO SCH (07:43)
[2016-06-27] MEDS ORDERED: Librium 10 MG PO PRN (08:33)
[2016-06-27 12:49] VITALS: BP 136/77; PULSE 80; O2SAT 95
--- NOTE | 2016-06-27 13:17 | PCM.DCORD ---
- Discharge Discharge Date: 06/27/16 Disposition: Home, Self-Care Condition: Fair Prescriptions: Continue Lisinopril 20 mg [Zestril 20 MG] 20 mg PO DAILY #30 tablet Chlordiazepoxide HCl 10 mg [Librium 10 MG] 10 mg PO Q6H/PRN PRN #0 capsule PRN Reason: Anxiety Amlodipine Besylate 5 mg [Norvasc 5 mg] 5 mg PO QAM #30 tablet Aripiprazole [Abilify] 5 mg PO DAILY Aripiprazole 10 mg [Abilify 10 MG] 10 mg PO HS Fluoxetine HCl [Prozac] 20 mg PO DAILY #30 capsule Follow up with: BRIANNA AUSTIN [Primary Care Provider] -
== END 2016-06-27 14:30 | disposition home or self-care (01) ==
LOC: ED 16:23 → ICU 20:13 → MED SURG 06-26 13:50
PROVIDERS: ADMIT Family Medicine; ATTEND Internal Medicine
DX: F10.239 Alcohol dependence with withdrawal, unspecified (principal); F41.9 Anxiety disorder, unspecified; R56.9 Unspecified convulsions; F32.9 Major depressive disorder, single episode, unspecified; F10.129 Alcohol abuse with intoxication, unspecified; F43.12 Post-traumatic stress disorder, chronic; I10 Essential (primary) hypertension; G47.30 Sleep apnea, unspecified; Z72.0 Tobacco use
CPT/HCPCS: 36415; 70450; 76705; 80053; 80307; 80320; 81000; 82150; 82962; 83690; 83986; 84484; 85025; 87430; 87631; 90791; 93005; 93268; 96360; 96361; 96365; 96374; 96375; 99285; G0378; G0481; J0561; J1200; J2060; J2405; Q3014

== ENCOUNTER 2016-08-27 19:16 | Observation (INO) | payer OTHER ==
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
[2016-08-27] MEDS ORDERED: Sodium Chloride 0.9% 1000 ML 1,000 ML IV STA (20:19)
[2016-08-27] MEDS ORDERED: Sodium Chloride 0.9% 1000 ML 1,000 ML ONE (20:25)
[2016-08-27 20:50] LABS: ALBUMIN 3.9 g/dL (3.4-5.0); ALKALINE PHOSPHATASE 85 U/L (46-116); BILIRUBIN,TOTAL 0.3 mg/dL (0.2-1.0); BLOOD UREA NITROGEN 12 mg/dL (9-20); CHLORIDE 103 mEq/L (98-107); Carbon Dioxide 21.6 mEq/L (21-32); Glucose 94 MG/DL (70-110); Potassium 3.9 mEq/L (3.5-5.1); SGOT/AST 30 U/L (15-37); SGPT/ALT 32 U/L (12-78); SODIUM 138 mEq/L (136-145); Total Protein 8.4 gm/dL (6.4-8.2)
[2016-08-27 20:51] LABS: ACETAMINOPHEN < 2.0 ug/ml (10-30)
[2016-08-27 20:53] LABS: BASOPHIL % 0.3 % (0.0-0.4); Eosinophil % 1.7 % (0.00-5.0); Granulocytes % 44.6 % (36.0-66.0); Lymphocytes % 47.2 % (24.0-44.0); Mean Cell Volume 93.8 fl (78-100); Mean Corpuscular Hemoglobin 31.5 pg (26-32); Monocytes % 6.2 % (0.0-12.0); Platelet Count 214 K/mm3 (150-450); Red Blood Count 4.82 M/mm3 (4.1-5.6); Red Cell Distribution Width 14.1 % (11.5-14.0); White Blood Count 6.7 K/mm3 (4.0-10.5)
[2016-08-27 21:46] LABS: Collection Type CLEAN CATCH
[2016-08-27 21:47] LABS: COMPLETE URINE MICROSCOPIC? NO
[2016-08-28] MEDS: Sodium Chloride 0.9% 1000 ML 1,000 ML IV SCH ×2 (00:44→09:46)
[2016-08-28] MEDS ORDERED: Abilify 10 MG PO ONE (01:30)
[2016-08-28 05:37] LABS: BASOPHIL % 0.3 % (0.0-0.4); Eosinophil % 3.4 % (0.00-5.0); Granulocytes % 34.7 % (36.0-66.0); Lymphocytes % 56.9 % (24.0-44.0); Mean Cell Volume 96.2 fl (78-100); Mean Corpuscular Hemoglobin 31.4 pg (26-32); Mean Platelet Volume 9.8 fl (6-9.5); Monocytes % 4.7 % (0.0-12.0); Platelet Count 183 K/mm3 (150-450); Red Blood Count 4.43 M/mm3 (4.1-5.6); Red Cell Distribution Width 14.3 % (11.5-14.0); White Blood Count 6.2 K/mm3 (4.0-10.5)
[2016-08-28 05:50] LABS: ANION GAP 15.5 MEQ/L (5-15); BLOOD UREA NITROGEN 11 mg/dL (9-20); CHLORIDE 108 mEq/L (98-107); Carbon Dioxide 22.6 mEq/L (21-32); Glucose 85 MG/DL (70-110); Potassium 4.2 mEq/L (3.5-5.1); SODIUM 142 mEq/L (136-145)
[2016-08-28 06:02] LABS: ACETAMINOPHEN < 2.0 ug/ml (10-30)
[2016-08-28] MEDS ORDERED: Phenergan 25 MG INJ IV PRN (06:56)
[2016-08-28] MEDS: Ativan 2 MG/1 ML VIAL IV PRN ×3 (07:21→21:21)
[2016-08-28] MEDS: Zofran 4 MG/2 ML VIAL IV PRN ×2 (07:21→12:42)
[2016-08-28] MEDS ORDERED: Abilify 10 MG PO SCH ×2 (10:00→22:00)
[2016-08-28] MEDS ORDERED: Prozac 20 MG PO SCH (10:00)
[2016-08-28] MEDS ORDERED: NORVASC 5 MG PO SCH (10:00)
[2016-08-28] MEDS ORDERED: Zestril 20 MG PO SCH (10:00)
[2016-08-28] MEDS ORDERED: NON-FORMULARY ITEM (Aripiprazole [Abilify] 5 MG) PO SCH (10:00)
--- NOTE | 2016-08-28 10:07 | PCM.HP ---
History of Present Illness - Chief Complaint Chief Complaint: Overdose History of Present Illness: is a 41 year old male with hx depression and suicide attempt in the past who has had increasing depression for the past several weeks and decided to take pills yesterday in an effort to end his life. He has been drinking quite a bit of alcohol for the past week or so; drank a somewhat smaller amount yesterday (10 beers per ER physician report) and took librium throughout the day , ending with a handful of librium at the end of the day. His UDS was + for BZD. He admits to taking one oxycodone as well. He admits to cigarette smoking , otherwise denies drug use. Has stated he's had seizures related to his alcohol use. overnight he had ativan x 1 was he was getting very anxious and somewhat shaky. Otherwise he slept but easily rouses to voice. Has been alert. C/o some nausea and epigastric discomfort. He has had an inpatient admission in the past at [facility]. - Review of Systems Constitutional: Other (weight gain recently, eating lots of candy) Abdominal/Gastrointestinal: Diarrhea (recently) Psychological: Depression, Suicidal Ideations (no current suicidal ideation) All Other Systems: Reviewed and Negative Medications & Allergies Home Medications: Home Medication List Lisinopril 20 mg [Zestril 20 MG] 20 mg PO DAILY #30 tablet 05/07/16 [Rx Confirmed 08/27/16] Amlodipine Besylate 5 mg [Norvasc 5 mg] 5 mg PO QAM #30 tablet 06/03/16 [ Rx Confirmed 08/27/16] Aripiprazole [Abilify] 5 mg PO DAILY 06/24/16 [History Confirmed 08/27/16] Aripiprazole 10 mg [Abilify 10 MG] 10 mg PO HS 06/27/16 [History Confirmed 08/27/16] Chlordiazepoxide HCl 10 mg [Librium 10 MG] 20 mg PO Q6H/PRN PRN 08/27/16 [ History Confirmed 08/27/16] Fluoxetine HCl [Prozac] 40 mg PO DAILY 08/27/16 [History Confirmed 08/27/16] Allergies/Adverse Reactions: Allergies Allergy/AdvReac Type Severity Reaction Status Date / Time No Known Drug Allergies Allergy Verified 06/24/16 16:30 - Past Medical History Past Medical History: Yes Neurological History: Migraines, Seizures ENT History: No Pertinent History Cardiac History: Angina, Hypertension, Other Respiratory History: Sleep Apnea Endocrine Medical History: No Pertinent History Musculoskelatal History: Fractures GI Medical History: Pancreatitis History: No Pertinent History Pyscho-Social History: Attention Deficit Disorder, Depression, Eating Disorders , Panic Disorder, Other Male Reproductive Disorders: No Pertinent History Comment: last seizure possibly in 4-5 months ago Dec 2015). -Liver sonogram- pt states "they said my liver is scratched.". - heart murmur when a child". broken fingers/lt ankle, paranoia. 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 - Past Surgical History Past Surgical History: No Neuro Surgical History: No Pertinent History Cardiac History: No Pertinent History Respiratory Surgery: No Pertinent History GI Surgical History: No Pertinent History Genitourinary Surgical Hx: No Pertinent History Musculskeletal Surgical Hx: No Pertinent History Male Surgical History: No Pertinent History - Social History Smoking Status: Current every day smoker How long have you smoked: 10 years Exposure to second hand smoke: Yes Alcohol: Weekly Drug Use: none - Physical Exam Vital Signs: Vital Signs - 24 hr Temp Pulse Resp BP Pulse Ox 08/28/16 08:10 94 L 08/28/16 08:00 98.2 F 77 24 105/62 91 L 08/28/16 04:00 97.9 F 82 22 116/72 93 L 08/28/16 00:12 98.2 F 76 20 116/64 97 08/28/16 00:01 76 08/27/16 23:52 98 08/27/16 23:47 82 14 124/78 97 08/27/16 22:48 84 18 124/75 96 08/27/16 21:06 75 16 122/69 96 08/27/16 19:43 97.7 F 88 18 124/64 98 Oxygen-Last 24 hours O2 Percentage 2 Liters = 28% General Appearance: no apparent distress Neurologic Exam: alert, oriented x 3, cooperative Eye Exam: eyes nml inspection, other (pupils sluggishly reactive bilat) Ears, Nose, Throat Exam: pharynx normal, moist mucous membranes, No pharyngeal erythema Neck Exam: normal inspection, non-tender, No lymphadenopathy Respiratory Exam: normal breath sounds, lungs clear, No crackles/rales, No rhonchi, No wheezing Cardiovascular Exam: regular rate/rhythm, normal heart sounds, No murmur Gastrointestinal/Abdomen Exam: soft, normal bowel sounds, No tenderness, No distention, No mass, No guarding, No rebound Back Exam: normal inspection Extremity Exam: normal inspection, No pedal edema, No swelling Skin Exam: normal color, No warm, No dry Results - Labs Lab/Micro Results: Lab Results-Last 24 Hours 08/28/16 08/28/16 Range/Units 05:05 05:05 WBC 6.2 (4.0-10.5) K/mm3 RBC 4.43 (4.1-5.6) M/mm3 Hgb 13.9 (12.5-18.0) gm/dl Hct 42.6 (42-50) % MCV 96.2 (78-100) fl MCH 31.4 (26-32) pg MCHC 32.6 (32-36) g/dl RDW 14.3 H (11.5-14.0) % Plt Count 183 (150-450) K/mm3 MPV 9.8 H (6-9.5) fl Gran % 34.7 L (36.0-66.0) % Lymphocytes % 56.9 H (24.0-44.0) % Monocytes % 4.7 (0.0-12.0) % Eosinophils % 3.4 (0.00-5.0) % Basophils % 0.3 (0.0-0.4) % Basophils # 0.02 (0-0.4) Sodium 142 (136-145) mEq/L Potassium 4.2 (3.5-5.1) mEq/L Chloride 108 H (98-107) mEq/L Carbon Dioxide 22.6 (21-32) mEq/L Anion Gap 15.5 H (5-15) MEQ/L BUN 11 (9-20) mg/dL Creatinine 1.17 (0.55-1.30) mg/dl Estimated GFR > 60 ML/MIN Glucose 85 (70-110) MG/DL Calcium 8.1 L (8.5-10.1) mg/dL Acetaminophen < 2.0 L (10-30) ug/ml - Other Procedures and Tests Respiratory Therapy 08/28/16 09:24 Oxygen NASAL CANNULA 2 lpm Assessment/Plan (1) Suicide attempt Current Visit: Yes Status: Acute Assessment & Plan: Currently feeling "better" and does not admit to suicidal ideation this morning , but concern with multiple attempts in the past and an attempt last night. [facility] to consult today. (2) Depression Current Visit: Yes Status: Acute Qualifiers: Depression Type: major depressive disorder Active/Remission status: currently active Psychotic features: without psychotic features Assessment & Plan: As above. Code(s): F32.9 - MAJOR DEPRESSIVE DISORDER, SINGLE EPISODE, UNSPECIFIED (3) Alcohol intoxication Current Visit: Yes Status: Acute Assessment & Plan: Does not appear intoxicated this morning. Also would benefit from treatment for this as well. 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
[2016-08-28 20:25] VITALS: O2SAT 93
[2016-08-29 00:28] VITALS: BP 134/85; PULSE 63
== END 2016-08-29 02:05 ==
LOC: ED 19:16 → ICU 23:52 → MED SURG 08-28 15:09
PROVIDERS: ADMIT Family Medicine; ATTEND Family Medicine
DX: T42.4X2A Poisoning by benzodiazepines, intentional self-harm, initial encounter (principal); Z79.899 Other long term (current) drug therapy; G40.909 Epilepsy, unspecified, not intractable, without status epilepticus; I10 Essential (primary) hypertension; G47.30 Sleep apnea, unspecified; F98.8 Other specified behavioral and emotional disorders with onset usually occurring in childhood and adolescence; Z72.0 Tobacco use; F32.9 Major depressive disorder, single episode, unspecified; F10.129 Alcohol abuse with intoxication, unspecified; F19.10 Other psychoactive substance abuse, uncomplicated
CPT/HCPCS: 36000; 36415; 80048; 80053; 80307; 80320; 81002; 83986; 85025; 90791; 93005; 93268; 94760; 96360; 99285; G0378; G0481; J2060; J2405; Q3014; A9270-GY

== ENCOUNTER 2016-11-16 19:01 | Observation (INO) | payer OTHER ==
[2016-11-16] MEDS ORDERED: Ativan 2 MG/1 ML VIAL IV ONE (19:19)
[2016-11-16] MEDS ORDERED: Sodium Chloride 0.9% 1000 ML 1,000 ML IV STA ×2 (19:19→21:01)
[2016-11-16] MEDS ORDERED: Zofran 4 MG/2 ML VIAL IV ONE (19:22)
[2016-11-16] MEDS ORDERED: Zofran 4 MG/2 ML VIAL ONE (19:25)
[2016-11-16] MEDS ORDERED: Ativan 2 MG/1 ML VIAL ONE (19:25)
[2016-11-16] MEDS ORDERED: Sodium Chloride 0.9% 1000 ML 1,000 ML ONE ×2 (19:25→20:55)
[2016-11-16] MEDS ORDERED: VITAMIN B-1 100 MG PO ONE (19:32)
[2016-11-16] MEDS ORDERED: FOLATE 1 MG PO ONE (19:32)
[2016-11-16] MEDS ORDERED: THERAGRAN MULTIVITAMIN PO ONE (19:32)
[2016-11-16] MEDS ORDERED: LIBRIUM 25 MG PO ONE (19:32)
[2016-11-16 19:37] LABS: BASOPHIL % 0.1 % (0.0-0.4); Eosinophil % 0.1 % (0.00-5.0); Granulocytes % 64.8 % (36.0-66.0); Lymphocytes % 27.1 % (24.0-44.0); Mean Cell Volume 91.1 fl (78-100); Mean Corpuscular Hemoglobin 32.6 pg (26-32); Mean Platelet Volume 9.5 fl (6-9.5); Monocytes % 7.9 % (0.0-12.0); Platelet Count 220 K/mm3 (150-450); Red Blood Count 5.16 M/mm3 (4.1-5.6); Red Cell Distribution Width 14.4 % (11.5-14.0); White Blood Count 10.4 K/mm3 (4.0-10.5)
[2016-11-16 20:00] LABS: ALBUMIN 4.3 g/dL (3.4-5.0); ALKALINE PHOSPHATASE 105 U/L (46-116); ANION GAP 18.9 MEQ/L (5-15); BLOOD UREA NITROGEN 14 mg/dL (9-20); CHLORIDE 100 mEq/L (98-107); Carbon Dioxide 22.9 mEq/L (21-32); Glucose 101 MG/DL (70-110); MAGNESIUM 1.4 mg/dL (1.8-2.4); Potassium 3.5 mEq/L (3.5-5.1); SGOT/AST 33 U/L (15-37); SGPT/ALT 36 U/L (12-78); SODIUM 138 mEq/L (136-145); Total Protein 8.6 gm/dL (6.4-8.2)
[2016-11-16 20:02] LABS: ACETAMINOPHEN < 2.0 ug/ml (10-30)
[2016-11-16] MEDS ORDERED: Magnesium 1 Gm / 100 Ml D5W*** 100 ML IV ONE ×2 (20:16→20:30)
--- NOTE | 2016-11-16 20:23 | ERPHSYRPT ---
- History of Present Illness Time Seen by Provider: 11/16/16 19:10 Source: patient Exam Limitations: clinical condition Patient Subjective Stated Complaint: "I have been doing meth for the last month about 1-2 times a week. I normally smoke it. I have been drinking a half gallon of vodka a day for about this last week. before that, i was drinking 5-6 24 oz beers a day for a couple weeks before that. i had quite for a couple months. i think it was the last time that i was in here. i just ran out of vodka last night and had not started feeling bad until tonight" Triage Nursing Assessment: aox3, breathing easy unlabored, skin pink warm dry, moving all extremities Physician History: PATIENT WITH A HISTORY OF ADHD, CHRONIC ALCOHOL ABUSE, POLYSUBSTANCE ABUSE, HAS BEEN BINGE DRINKING PAST FEW WEEKS, 1/2 GALLON OF VODKA, 5-6 BEERS DAILY AND SMOKING METHAMPHETINE. STATES LAST DOSE OF ALCOHOL LAST NIGHT. HAS ONSET OF TREMOR PAST FEW HOURS, DRY HEAVES. DENIES VISUAL OR AUDITORY HALLUCINATIONS, CHEST PAIN, PALPITATIONS, EMESIS OR DIARRHEA. Timing/Duration: today Severity: moderate Modifying Factors: Improves With: nothing Associated Symptoms: nausea, other (TREMOR) Allergies/Adverse Reactions: No Known Drug Allergies Allergy (Verified 11/16/16 19:11) Hx Tetanus, Diphtheria Vaccination/Date Given: Yes Hx Influenza Vaccination/Date Given: Yes Hx Pneumococcal Vaccination/Date Given: No - Review of Systems Constitutional: No Fever, No Chills Eyes: No Symptoms Ears, Nose, & Throat: No Symptoms Respiratory: No Symptoms, No Cough, No Dyspnea Cardiac: No Symptoms, No Chest Pain, No Edema, No Syncope Abdominal/Gastrointestinal: No Abdominal Pain, No Nausea, No Vomiting, No Diarrhea Genitourinary Symptoms: No Dysuria Musculoskeletal: No Back Pain, No Neck Pain Skin: No Rash Neurological: Other (TREMOR), No Dizziness, No Focal Weakness, No Sensory Changes Psychological: No Symptoms Endocrine: No Symptoms All Other Systems: Reviewed and Negative - Past Medical History Pertinent Past Medical History: Yes Neurological History: Migraines, Seizures ENT History: No Pertinent History Cardiac History: Angina, Hypertension, Other Respiratory History: Sleep Apnea Endocrine Medical History: No Pertinent History Musculoskeletal History: Fractures GI Medical History: Pancreatitis History: No Pertinent History Psycho-Social History: Attention Deficit Disorder, Depression, Eating Disorders , Panic Disorder, Other Male Reproductive Disorders: No Pertinent History Other Medical History: last seizure possibly in 4-5 months ago Dec 2015). - Liver sonogram- pt states "they said my liver is scratched.". - heart murmur when a child". broken fingers/lt ankle, paranoia. 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 - Past Surgical History Past Surgical History: No Neuro Surgical History: No Pertinent History Cardiac: No Pertinent History Respiratory: No Pertinent History Gastrointestinal: No Pertinent History Genitourinary: No Pertinent History Musculoskeletal: No Pertinent History Male Surgical History: No Pertinent History - Social History Smoking Status: Current every day smoker How long have you smoked: 10 years Exposure to second hand smoke: Yes Drug Use: methamphetamines Patient Lives Alone: Yes - Nursing Vital Signs Nursing Vital Signs: Initial Vital Signs Temperature 99.0 F 11/16/16 19:02 Pulse Rate 87 11/16/16 19:02 Respiratory Rate 16 11/16/16 19:02 Blood Pressure 163/97 11/16/16 19:02 O2 Sat by Pulse Oximetry 98 11/16/16 19:02 Pain Scale Pain Intensity 8 - Physical Exam General Appearance: no apparent distress, alert Eye Exam: PERRL/EOMI, eyes nml inspection Ears, Nose, Throat Exam: normal ENT inspection, TMs normal, pharynx normal, moist mucous membranes Neck Exam: normal inspection, non-tender, supple, full range of motion Respiratory Exam: normal breath sounds, lungs clear, No respiratory distress Cardiovascular Exam: normal heart sounds, normal peripheral pulses, tachycardia Gastrointestinal/Abdomen Exam: soft, normal bowel sounds, No tenderness, No mass Back Exam: normal inspection, normal range of motion, No CVA tenderness, No vertebral tenderness Extremity Exam: normal inspection, normal range of motion, pelvis stable Neurologic Exam: alert, oriented x 3, cooperative, normal mood/affect, nml cerebellar function, nml station & gait (THERE IS A RESTING TREMOR RIGHT UPPER EXTREMITY), sensation nml, No motor deficits Skin Exam: normal color, warm, dry, No rash Lymphatic Exam: No adenopathy SpO2: 96 Oxygen Delivery: Room Air Ordered Tests: Active Orders 24 hr Category Date Time Status EKG-ER Only STAT Care 11/16/16 20:59 Active Oxygen-ED Only NASAL CANNULA 2 lpm Care 11/16/16 19:19 Active ACETAMINOPHEN Stat Lab 11/16/16 19:33 Completed CBC W DIFF Stat Lab 11/16/16 19:33 Completed CMP Stat Lab 11/16/16 19:33 Completed ETHYL ALCOHOL Stat Lab 11/16/16 19:33 Completed MAGNESIUM Stat Lab 11/16/16 19:33 Completed SALICYLATE Stat Lab 11/16/16 19:33 Completed Urine Triage Profile Stat Lab 11/16/16 19:33 Completed Transfer Order Routine Transfer 11/16/16 21:05 Ordered Medication Summary Generic Name Dose Route Start Last Admin Trade Name Freq PRN Reason Stop Dose Admin Sodium Chloride 1,000 mls @ 999 mls/hr 11/16/16 21:01 Sodium Chloride 0.9% 1000 Ml IV 11/16/16 22:01 .Q1H1M STA Discontinued Medications Generic Name Dose Route Start Last Admin Trade Name Freq PRN Reason Stop Dose Admin Chlordiazepoxide HCl 50 mg 11/16/16 19:32 11/16/16 19:47 Librium 25 Mg PO 11/16/16 19:33 50 mg STAT ONE Administration Folic Acid 1 mg 11/16/16 19:32 11/16/16 19:47 Folate 1 Mg PO 11/16/16 19:33 1 mg STAT ONE Administration Sodium Chloride 1,000 mls @ 999 mls/hr 11/16/16 19:19 11/16/16 19:27 Sodium Chloride 0.9% 1000 Ml IV 11/16/16 20:19 999 mls/hr .Q1H1M STA Administration Sodium Chloride Confirm 11/16/16 19:25 Sodium Chloride 0.9% 1000 Ml Administered 11/16/16 19:26 Dose 1,000 mls @ ud .ROUTE .STK-MED ONE Magnesium Sulfate/Dextrose 100 mls @ 200 mls/hr 11/16/16 20:16 11/16/16 20:30 Magnesium 1 Gm / 100 Ml D5w IV 11/16/16 20:45 200 mls/hr STAT ONE Administration Magnesium Sulfate/Dextrose Confirm 11/16/16 20:30 Magnesium 1 Gm / 100 Ml D5w Administered 11/16/16 20:31 Dose 100 mls @ ud IV .STK-MED ONE Sodium Chloride Confirm 11/16/16 20:55 Sodium Chloride 0.9% 1000 Ml Administered 11/16/16 20:56 Dose 1,000 mls @ ud .ROUTE .STK-MED ONE Lisinopril 20 mg 11/16/16 21:05 Zestril 20 Mg PO 11/16/16 21:06 STAT ONE Lorazepam 2 mg 11/16/16 19:19 11/16/16 19:27 Ativan 2 Mg/1 Ml Vial IV 11/16/16 19:20 2 mg STAT ONE Administration Lorazepam Confirm 11/16/16 19:25 Ativan 2 Mg/1 Ml Vial Administered 11/16/16 19:26 Dose 2 mg .ROUTE .STK-MED ONE Multivitamins 1 tab 11/16/16 19:32 11/16/16 19:47 Theragran Multivitamin PO 11/16/16 19:33 1 tab STAT ONE Administration Ondansetron HCl 4 mg 11/16/16 19:22 11/16/16 19:27 Zofran 4 Mg/2 Ml Vial IV 11/16/16 19:23 4 mg STAT ONE Administration Ondansetron HCl Confirm 11/16/16 19:25 Zofran 4 Mg/2 Ml Vial Administered 11/16/16 19:26 Dose 4 mg .ROUTE .STK-MED ONE Thiamine HCl 100 mg 11/16/16 19:32 11/16/16 19:47 Vitamin B-1 100 Mg PO 11/16/16 19:33 100 mg STAT ONE Administration Lab/Rad Data: Laboratory Result Diagrams 11/16/16 19:33 11/16/16 19:33 Laboratory Results 11/16/16 11/16/16 11/16/16 Range/Units 19:33 19:33 19:33 WBC (4.0-10.5) K/mm3 RBC (4.1-5.6) M/mm3 Hgb (12.5-18.0) gm/dl Hct (42-50) % MCV (78-100) fl MCH (26-32) pg MCHC (32-36) g/dl RDW (11.5-14.0) % Plt Count (150-450) K/mm3 MPV (6-9.5) fl Gran % (36.0-66.0) % Lymphocytes % (24.0-44.0) % Monocytes % (0.0-12.0) % Eosinophils % (0.00-5.0) % Basophils % (0.0-0.4) % Basophils # (0-0.4) Sodium 138 (136-145) mEq/L Potassium 3.5 (3.5-5.1) mEq/L Chloride 100 (98-107) mEq/L Carbon Dioxide 22.9 (21-32) mEq/L Anion Gap 18.9 H (5-15) MEQ/L BUN 14 (9-20) mg/dL Creatinine 1.32 H (0.55-1.30) mg/dl Estimated GFR > 60 ML/MIN Glucose 101 (70-110) MG/DL Calcium 9.2 (8.5-10.1) mg/dL Magnesium 1.4 L (1.8-2.4) mg/dL Total Bilirubin 1.10 H (0.2-1.0) mg/dL AST 33 (15-37) U/L ALT 36 (12-78) U/L Alkaline Phosphatase 105 (46-116) U/L Serum Total Protein 8.6 H (6.4-8.2) gm/dL Albumin 4.3 (3.4-5.0) g/dL Salicylates 3.0 (2.8-20.0) mg/dl Urine Opiates Level NEG. (NEGATIVE) Ur Methadone NEG. (NEGATIVE) Acetaminophen < 2.0 L (10-30) ug/ml Urine Barbiturates NEG. (NEGATIVE) Ur Phencyclidine (PCP) NEG. (NEGATIVE) Urine Amphetamine NEG. (NEGATIVE) U Benzodiazepine Level NEG. (NEGATIVE) Urine Cocaine NEG. (NEGATIVE) Urine Marijuana (THC) NEG. (NEGATIVE) Ethyl Alcohol < 0.010 (0.00-0.01) % 11/16/16 Range/Units 19:33 WBC 10.4 (4.0-10.5) K/mm3 RBC 5.16 (4.1-5.6) M/mm3 Hgb 16.8 (12.5-18.0) gm/dl Hct 47.0 (42-50) % MCV 91.1 (78-100) fl MCH 32.6 H (26-32) pg MCHC 35.7 (32-36) g/dl RDW 14.4 H (11.5-14.0) % Plt Count 220 (150-450) K/mm3 MPV 9.5 (6-9.5) fl Gran % 64.8 (36.0-66.0) % Lymphocytes % 27.1 (24.0-44.0) % Monocytes % 7.9 (0.0-12.0) % Eosinophils % 0.1 (0.00-5.0) % Basophils % 0.1 (0.0-0.4) % Basophils # 0.01 (0-0.4) Sodium (136-145) mEq/L Potassium (3.5-5.1) mEq/L Chloride (98-107) mEq/L Carbon Dioxide (21-32) mEq/L Anion Gap (5-15) MEQ/L BUN (9-20) mg/dL Creatinine (0.55-1.30) mg/dl Estimated GFR ML/MIN Glucose (70-110) MG/DL Calcium (8.5-10.1) mg/dL Magnesium (1.8-2.4) mg/dL Total Bilirubin (0.2-1.0) mg/dL AST (15-37) U/L ALT (12-78) U/L Alkaline Phosphatase (46-116) U/L Serum Total Protein (6.4-8.2) gm/dL Albumin (3.4-5.0) g/dL Salicylates (2.8-20.0) mg/dl Urine Opiates Level (NEGATIVE) Ur Methadone (NEGATIVE) Acetaminophen (10-30) ug/ml Urine Barbiturates (NEGATIVE) Ur Phencyclidine (PCP) (NEGATIVE) Urine Amphetamine (NEGATIVE) U Benzodiazepine Level (NEGATIVE) Urine Cocaine (NEGATIVE) Urine Marijuana (THC) (NEGATIVE) Ethyl Alcohol (0.00-0.01) % - Progress Progress: improved Progress Note: 11/16/16 21:02 PATIENT GIVEN 2 LITERS NORMAL SALINE, ATIVAN 2MG IV, ORAL LIBRIUM 50MG, ORAL THIAMINE 100MG, FOLIC ACID, MULTI VITAMINE ORAL Discussed with Dr.: Austin (DISCUSSED WITH DR AUSTIN AT 2053 FOR ADMISSION) - Departure Time of Disposition: 21:14 Departure Disposition: Observation Clinical Impression: ACUTE ALCOHOL WITHDRAWAL Condition: Stable Critical Care Time: No Critical Care Time(excluding separately billable procedures): 30-74 minutes Referrals: BRIANNA AUSTIN [Primary Care Provider] -
[2016-11-16] MEDS ORDERED: Zestril 20 MG PO ONE (21:05)
[2016-11-16] MEDS ORDERED: Ativan 2 MG/1 ML VIAL IV PRN (21:55)
[2016-11-16] MEDS ORDERED: TYLENOL 325 MG PO PRN (21:55)
[2016-11-16] MEDS ORDERED: Zofran 4 MG/2 ML VIAL IV PRN (21:55)
[2016-11-16] MEDS: LIBRIUM 25 MG PO SCH (21:57)
[2016-11-16] MEDS: Sodium Chloride 0.9% 1000 ML 1,000 ML IV SCH (22:16)
[2016-11-16] MEDS: Ativan 2 MG/1 ML VIAL IV PRN (22:24)
[2016-11-16] MEDS: Nicoderm CQ 21 MG TOP SCH (23:34)
[2016-11-17] MEDS: Ativan 2 MG/1 ML VIAL IV PRN ×3 (07:49→21:03)
[2016-11-17] MEDS: Sodium Chloride 0.9% 1000 ML 1,000 ML IV SCH (08:19)
[2016-11-17] MEDS ORDERED: Zestril 20 MG PO SCH (10:00)
[2016-11-17] MEDS: Dextrose 5% -0.45 NaCl 1000 ML 1,000 ML IV SCH ×2 (10:18→21:03)
[2016-11-17] MEDS: LIBRIUM 25 MG PO SCH ×4 (10:18→21:57)
[2016-11-17] MEDS: FOLATE 1 MG PO SCH (10:19)
[2016-11-17] MEDS: Zestril 10 MG PO SCH (10:19)
[2016-11-17] MEDS: VITAMIN B-1 100 MG PO SCH (10:19)
[2016-11-17] MEDS: THERAGRAN MULTIVITAMIN PO SCH (10:19)
--- NOTE | 2016-11-17 10:28 | HP ---
HISTORY OF PRESENT ILLNESS: This is a 41 year-old man who presented to the emergency department stating that he had been binge drinking for the past week and ran out of alcohol and he also had been smoking meth. The emergency room doctor felt like he was in alcohol withdrawal so he was made an admission to the hospital. The patient reports that he has not drank for a couple of month and then started again three weeks ago. He reported that he was not quite as jittery this morning. He reported the last time he was discharged from here he went to [facility] for three days and then went home. His plan after discharge here is to attend AA meetings and get other options for treatment for his chronic alcohol abuse. REVIEW OF SYSTEMS: He had some nausea, no vomiting. He reports he ate his breakfast well. He reports some mild abdominal pain all over but a little worse on the right side. He denies any suicidal ideation. No dyspnea. No lower extremity edema. No rashes. PAST MEDICAL HISTORY: Hypertension, history of pancreatitis, alcohol abuse, history of depression, history of suicide attempt. MEDICATIONS: None recently. He used to be on Abilify 10 mg p.o. daily last filled in July. Librium 10 mg p.o. every six hours as needed last filled in July. It was noted that he overdosed on this in August and was seen in the hospital then. Fluoxetine 40 mg p.o. daily last filled in August and lisinopril 20 mg daily last filled in August. ALLERGIES: NKDA. SOCIAL HISTORY: He smokes one half to one pack per day. He lives with his parents. He is unemployed. He admits to using alcohol and methamphetamines. FAMILY HISTORY: His father is living and also has history of back problems, colon cancer, lymphoma and skin cancer. His mother is living and has history of hip pain. PHYSICAL EXAMINATION: VITAL SIGNS: Temperature current 98.3F, temperature max 99.0F, heart rate 70 to 89, respiratory rate 12 to 22, blood pressure 118 to 177 over 70 to 110. Oxygen saturation 94 to 98% on room air with 2 liters nasal cannula. GENERAL: The patient is a pleasant man lying in bed in no acute distress. CVS: He has a regular rate and rhythm. No murmurs, gallops or rubs are appreciated. CHEST: Clear to auscultation bilaterally. No crackles or wheezes. ABDOMEN: Soft, mild right upper quadrant tenderness. No guarding. No rigidity. Normal bowel sounds. EXTREMITIES: No clubbing, cyanosis or edema. SKIN: Warm, dry and intact. LABORATORY DATA AND TESTS: His magnesium was 1.4 in the emergency room and was replaced in the emergency room. Bilirubin 1.1, creatinine 1.32. Urine tox negative. CBC within normal limits. EKG was normal sinus rhythm with no ST-T changes. ASSESSMENT AND PLAN: 1) ACUTE ALCOHOL WITHDRAWAL: His nurse noted that he needed 2 mg of Ativan IV this morning for being jittery. He had gotten Librium and IV Ativan in the emergency room last night. The patient states that he plans to quit using alcohol at home so will observe him overnight and use the alcohol withdrawal protocol. I do not feel comfortable discharging him on Librium as he has history of overdosing on this in the past. He plans to attend AA meetings after his discharge. 2) HYPERTENSION: He was given lisinopril 20 mg last night, will continue with lisinopril 10 mg p.o. daily. 3) DEPRESSION: Will need to discuss with him if he wants to restart the medication for this.
[2016-11-17 11:17] LABS: ANION GAP 11.9 MEQ/L (5-15); BLOOD UREA NITROGEN 13 mg/dL (9-20); CHLORIDE 108 mEq/L (98-107); Carbon Dioxide 25.4 mEq/L (21-32); Glucose 100 MG/DL (70-110); MAGNESIUM 1.9 mg/dL (1.8-2.4); SODIUM 141 mEq/L (136-145)
[2016-11-17] MEDS: Nicoderm CQ 21 MG TOP SCH (21:57)
[2016-11-18] MEDS: LIBRIUM 25 MG PO SCH ×5 (08:55→21:32)
[2016-11-18] MEDS: VITAMIN B-1 100 MG PO SCH (08:55)
[2016-11-18] MEDS: FOLATE 1 MG PO SCH (08:55)
[2016-11-18] MEDS: THERAGRAN MULTIVITAMIN PO SCH (08:55)
[2016-11-18] MEDS: Prozac 20 MG PO SCH (08:55)
[2016-11-18] MEDS: Zestril 10 MG PO SCH (08:55)
[2016-11-18] MEDS: Ativan 2 MG/1 ML VIAL IV PRN ×2 (08:56→11:14)
--- NOTE | 2016-11-18 08:59 | PCM.NOTE ---
Date and Time: 11/18/16 0853 Subjective Assessment: Patient reports he feels better but a little jittery and required a dose of IV ativan this AM even though getting librium 50 mg qid. He reports he has been making himself eat and he has been up and around his room. He is not sure he will have a place to stay when discharged and said he has to call his mom and check if he can still stay there. - Review of Systems Constitutional: No Symptoms Eyes: No Symptoms Ears, Nose, & Throat: No Symptoms Respiratory: No Symptoms Cardiac: No Symptoms Abdominal/Gastrointestinal: No Symptoms Genitourinary Symptoms: No Symptoms Musculoskeletal: No Symptoms Skin: No Symptoms Psychological: Alcohol Abuse, Anxiety Objective Exam General Appearance: no apparent distress, alert Neurologic Exam: alert, cooperative, normal mood/affect Skin Exam: normal color, warm, dry, No rash Respiratory Exam: normal breath sounds, lungs clear, No crackles/rales, No rhonchi, No wheezing Cardiovascular Exam: regular rate/rhythm, normal heart sounds, No murmur, No friction rub, No gallop Gastrointestinal/Abdomen Exam: soft, normal bowel sounds, No tenderness, No distention, No mass Extremity Exam: normal inspection, other (no c/c/e) OBJECTIVE DATA Vital Signs: Vital Signs - 24 hr Temp Pulse Resp BP Pulse Ox 11/18/16 08:00 18 11/18/16 07:09 97.8 F 65 22 123/77 97 11/18/16 04:00 98.3 F 61 18 127/75 97 11/17/16 23:45 18 11/17/16 23:29 57 L 18 123/73 95 11/17/16 20:00 98.4 F 66 18 118/69 95 11/17/16 18:49 71 18 94 L 11/17/16 15:30 97.8 F 70 24 113/71 97 11/17/16 12:00 98 F 83 18 116/68 97 11/17/16 11:00 84 16 97 Pain Assessment - Last Documented Pain Intensity 0 Pain Scale Used 0-10 Pain Scale Intake and Output: Intake & Output 11/16/16 11/17/16 11/18/16 11/19/16 06:59 06:59 06:59 06:59 Intake Total 2898 1407 Output Total 725 900 Balance 2173 507 Weight 95.254 kg 99.337 kg Lab Results: Lab Results-Last 24 Hours 11/17/16 Range/Units 10:43 Sodium 141 (136-145) mEq/L Potassium 4.0 (3.5-5.1) mEq/L Chloride 108 H (98-107) mEq/L Carbon Dioxide 25.4 (21-32) mEq/L Anion Gap 11.9 (5-15) MEQ/L BUN 13 (9-20) mg/dL Creatinine 1.10 (0.55-1.30) mg/dl Estimated GFR > 60 ML/MIN Glucose 100 (70-110) MG/DL Calcium 8.0 L (8.5-10.1) mg/dL Magnesium 1.9 (1.8-2.4) mg/dL Multi-Disciplinary Progress Notes: Multi-Disciplinary Progress Notes 11/17/16 11:21 Case Management Note by Leigh Ayon PROVIDED WITH INFORMATION FOR AA, [facility], AREA MEETINGS AND [facility] INFORMATION. ALSO, PROVIDED WITH [facility] INFORMATION AND CONTACT INFORMATION. NURSE PLACED IN EDUCATION FOLDER. Initialized on 11/17/16 11:21 - END OF NOTE Assessment/Plan (1) Alcohol withdrawal syndrome Current Visit: Yes Status: Acute Assessment & Plan: Continue with alcohol withdrawal protocol. Continue multivitamin, thiamine, folic acid. I am not comfortable with discharging him with libirum as he has a history of trying to overdose on librium. Code(s): F10.239 - ALCOHOL DEPENDENCE WITH WITHDRAWAL, UNSPECIFIED (2) Poly-drug misuser Current Visit: No Status: Chronic Code(s): F19.10 - OTHER PSYCHOACTIVE SUBSTANCE ABUSE, UNCOMPLICATED (3) Essential hypertension Current Visit: Yes Status: Acute Assessment & Plan: Currently well controlled on lisinopril. Code(s): I10 - ESSENTIAL (PRIMARY) HYPERTENSION (4) Depression Current Visit: Yes Status: Acute Assessment & Plan: Restart fluoxetine. Code(s): F32.9 - MAJOR DEPRESSIVE DISORDER, SINGLE EPISODE, UNSPECIFIED
[2016-11-18] MEDS: Dextrose 5% -0.45 NaCl 1000 ML 1,000 ML IV SCH ×2 (09:01→21:43)
[2016-11-18] MEDS: Nicoderm CQ 21 MG TOP SCH (21:32)
[2016-11-19 07:13] VITALS: BP 151/94; PULSE 51
[2016-11-19 07:24] VITALS: O2SAT 96
[2016-11-19] MEDS: THERAGRAN MULTIVITAMIN PO SCH (08:26)
[2016-11-19] MEDS: FOLATE 1 MG PO SCH (08:26)
[2016-11-19] MEDS: VITAMIN B-1 100 MG PO SCH (08:27)
[2016-11-19] MEDS: Zestril 10 MG PO SCH (08:27)
[2016-11-19] MEDS: Prozac 20 MG PO SCH (08:27)
[2016-11-19] MEDS: LIBRIUM 25 MG PO SCH (08:27)
--- NOTE | 2016-11-19 09:54 | PCM.DS ---
Discharge Summary Date of Admission: 11/16/16 21:47 Admitting Physician: BRIANNA AUSTIN Primary Care Provider: BRIANNA AUSTIN Allergies Allergies No Known Drug Allergies Allergy (Verified 11/16/16 19:11) Hospital Summary - Hospital Course Hospital Course: Pt is a chronic alcoholic, admitted with alcohol withdrawal and polysubstance abuse. He had some tremors initially even on the ativan protocol. Last night he decided he wanted to go home even though he is having a hard time finding a place to stay. This morning he still wants to d/c home. - Vitals & Intake/Output Vital Signs: Vital Signs Temperature 98.3 F 11/19/16 07:12 Pulse Rate 51 L 11/19/16 07:12 Respiratory Rate 18 11/19/16 08:00 Blood Pressure 151/94 11/19/16 07:12 O2 Sat by Pulse Oximetry 96 11/19/16 07:22 Oxygen-Last Documented O2 Percentage 2 Liters = 28% Intake & Output: Intake & Output 11/16/16 11/17/16 11/18/16 11/19/16 11:59 11:59 11:59 11:59 Intake Total 2898 1407 2282 Output Total 725 900 725 Balance 2173 507 1557 Weight 95.254 kg 99.337 kg 99.337 kg - Lab Result Diagrams: 11/16/16 19:33 11/17/16 10:43 - Procedures and Test Procedures and Tests throughout Hospitalization: Therapy Orders & Screens 11/16/16 23:29 Smoking Cessation Education ONCE Comment: Diagnosis: ACUTE ALCOHOL WITHDRAWAL Smoking Status: Current every day smoker How long have you smoked: 10 YEARS Have you smoked in the past 12 months: Yes Approximately how many cigarettes per day: 20 Do you dip or chew tobacco: Yes: SOMETIMES 11/17/16 05:52 Oxygen NASAL CANNULA 2 lpm Comment: Diagnosis: ACUTE ALCOHOL WITHDRAWAL Discharge Exam General Appearance: no apparent distress Neurologic Exam: alert, oriented x 3, cooperative, depressed mood/affect, other (no tremor) Skin Exam: normal color, warm, dry Respiratory Exam: normal breath sounds, lungs clear, No crackles/rales, No rhonchi, No wheezing Cardiovascular Exam: regular rate/rhythm, normal heart sounds, No murmur Extremity Exam: No pedal edema, No swelling Final Diagnosis/Problem List - Final Discharge Diagnosis/Problem (1) Alcohol withdrawal syndrome Current Visit: Yes Status: Acute Assessment & Plan: I will send him home with a very small amount of librium as he has overdosed on it in the past. Ideally he would stay another day or two to ensure no DTs. However, he has insisted on leaving since last night. Instructions given, if tremors return he is to return to ER. He has received info on and [facility] drug programs. (2) Depression Current Visit: Yes Status: Acute Assessment & Plan: He denies any suicidal ideation. (3) Essential hypertension Current Visit: Yes Status: Acute Assessment & Plan: on lisinopril at home. He has had only one elevated BP here. will recheck before d/c. continue on lisinopril. Aid states pt was upset when BP taken this morning. (4) Poly-drug misuser Current Visit: No Status: Chronic Assessment & Plan: [facility] info given as above. - Discharge Disposition: Home, Self-Care Condition: Stable Prescriptions: New Chlordiazepoxide HCl 25 mg [Librium 25 mg] 25 mg PO QID PRN #6 capsule PRN Reason: tremors Continue Lisinopril 20 mg [Zestril 20 MG] 20 mg PO DAILY Aripiprazole 10 mg [Abilify 10 MG] 10 mg PO DAILY Fluoxetine HCl [Prozac] 40 mg PO DAILY Discontinued Chlordiazepoxide HCl 10 mg [Librium 10 MG] 10 mg PO Q6H PRN PRN Reason: Anxiety Follow up with: BRIANNA AUSTIN [Primary Care Provider] - 11/28/16 11:15 am Forms: Patient Portal Information
== END 2016-11-19 10:20 | disposition home or self-care (01) ==
LOC: ED 19:01 → MED SURG 21:47
PROVIDERS: ADMIT Internal Medicine; ATTEND Internal Medicine
DX: F10.239 Alcohol dependence with withdrawal, unspecified (principal); F32.9 Major depressive disorder, single episode, unspecified; I10 Essential (primary) hypertension; F19.10 Other psychoactive substance abuse, uncomplicated; K86.1 Other chronic pancreatitis; Z72.0 Tobacco use; Z80.0 Family history of malignant neoplasm of digestive organs; Z80.7 Family history of other malignant neoplasms of lymphoid, hematopoietic and related tissues; Z80.8 Family history of malignant neoplasm of other organs or systems
CPT/HCPCS: 36415; 80048; 80053; 80307; 83735; 85025; 93005; 93268; 94760; 96360; 96361; 96365; 96374; 96375; 99285; G0378; G0481; J2060; J2405; J3475; A9270-GY

== ENCOUNTER 2016-12-17 17:19 | Inpatient (IN) | payer OTHER ==
[2016-12-17] MEDS ORDERED: Geodon 20 MG INJ IM ONE ×2 (17:26→17:43)
[2016-12-17] MEDS ORDERED: THIAMINE 200 MG/2 ML IM ONE (17:26)
[2016-12-17] MEDS ORDERED: Sodium Chloride 0.9% 1000 ML 1,000 ML IV STA (17:26)
[2016-12-17] MEDS ORDERED: Ativan 2 MG/1 ML VIAL IV ONE ×2 (17:26→18:36)
[2016-12-17] MEDS ORDERED: THIAMINE 200 MG/2 ML ONE (17:43)
[2016-12-17] MEDS ORDERED: Ativan 2 MG/1 ML VIAL ONE ×2 (17:44→18:42)
[2016-12-17] MEDS ORDERED: Sodium Chloride 0.9% 1000 ML 1,000 ML ONE ×2 (17:46→20:11)
[2016-12-17 17:47] LABS: VBG BASE EXCESS -2.7 (-2.0-2.0); VBG CARBOXYHEMOGLOBIN 3.8 % T HGB (0.0-6.9); VBG HCO3- 17.1 meq/L (22-28); VBG O2 SATURATION 93.4 (95-100); VBG POTASSIUM 3.1 (3.5-5.1); VBG pH 7.54 (7.32-7.42)
[2016-12-17 17:48] LABS: Lactic Acid 7.1 (0.4-2.0)
[2016-12-17] MEDS ORDERED: Lactated Ringers 1,000 ML IV ONE ×4 (17:51→18:59)
[2016-12-17 17:53] LABS: BASOPHIL % 0.1 % (0.0-0.4); Eosinophil % 0.6 % (0.00-5.0); Granulocytes % 68.2 % (36.0-66.0); Lymphocytes % 27.7 % (24.0-44.0); Mean Cell Volume 91.6 fl (78-100); Mean Corpuscular Hemoglobin 31.7 pg (26-32); Mean Platelet Volume 10.3 fl (6-9.5); Monocytes % 3.4 % (0.0-12.0); Platelet Count 159 K/mm3 (150-450); Red Blood Count 4.76 M/mm3 (4.1-5.6); Red Cell Distribution Width 13.5 % (11.5-14.0); White Blood Count 6.7 K/mm3 (4.0-10.5)
[2016-12-17 18:11] LABS: INR 1.04 (0.8-3.0); PROTIME 11.8 SECONDS (8.83-12.87)
[2016-12-17 18:14] LABS: ALKALINE PHOSPHATASE 113 U/L (46-116); ANION GAP 28.9 MEQ/L (5-15); BLOOD UREA NITROGEN 16 mg/dL (9-20); CHLORIDE 95 mEq/L (98-107); Carbon Dioxide 16.7 mEq/L (21-32); Direct Bilirubin 0.33 MG/DL (0.0-0.2); ETHYL ALCOHOL 0.166 % (0.00-0.01); Glucose 134 MG/DL (70-110); PTT 27.4 SECONDS (24.1-36.1); SGOT/AST 128 U/L (15-37); SGPT/ALT 80 U/L (12-78); SODIUM 138 mEq/L (136-145); Total Protein 8.2 gm/dL (6.4-8.2)
--- NOTE | 2016-12-17 18:14 | ERPHSYRPT ---
- History of Present Illness Time Seen by Provider: 12/17/16 17:26 Source: patient Patient Subjective Stated Complaint: LT ARM PAIN ALL DAY, POSSIBLE WITHDRAW FROM ALCOHOL PER PT Triage Nursing Assessment: PT GOTTEN OUT OF TRUCK BY THIS STAFF. PT STATES 'MY ARM HURTS ALL DAY AND IM ADDICTED TO ALCHOL AND DRUGS'. ON ARRIVAL, HYPERVENTILATING. SKIN WARM AND DRY. REPEATEDLY INSTRUCTED TO SLOW BREATHING DOWN AND RELAX. PT STATES HE HAS HAD LT ARM PAIN ALL DAY AND SOB. STATES WENT OUTSIDE TO SMOKE WITH MOTHER AND 'PASSED OUT' STATES FEELS LIKE S/S ARE FROM WITHDRAW. 'I JUST WANT MY THOUGHTS TO STOP IN MY HEAD' STATES HE DRANK TODAY ' BUT NOT ENOUGH TO STOP THE WITHDRAWS AND DID METH 3 DAYS AGO' STATES TAKES MEDS PRESCRIBED BY DR AUSTIN BUT THEY ARENT HELPING. STATES 'I SOMETIMES FEEL LIGHTNING BOLTS THRU MY BODY, SEEING BLACK AND WHITE OBJECTS' Physician History: CC: left arm pain Hx: 41 y/o patient of Dr Austin. He reports chronic drinker of alcohol. Has been drinking a lot in past weeks. Drank some today but not as much as usual. He uses drugs. States last used meth 3 days ago. He has hx of psychiatric illness and chronically sees and hears things. He has not been taking the abilify prescribed for him. He reports some chest pain and arm pain. Friend thought he passed out. Denies injury. No seizure. He has had alcohol withdrawal in the past. No fever or chills. No cough or vomiting or diarrhea. Timing/Duration: today Severity: severe Allergies/Adverse Reactions: No Known Drug Allergies Allergy (Verified 12/17/16 17:33) Home Medications: Aripiprazole 10 mg [Abilify 10 MG] 10 mg PO DAILY 11/17/16 [History] Fluoxetine HCl [Prozac] 40 mg PO DAILY 11/17/16 [History] Lisinopril 20 mg [Zestril 20 MG] 20 mg PO DAILY 11/17/16 [History] Hx Tetanus, Diphtheria Vaccination/Date Given: Yes Hx Influenza Vaccination/Date Given: Yes Hx Pneumococcal Vaccination/Date Given: No Immunizations Up to Date: Yes - Review of Systems Constitutional: Malaise, Weakness, No Fever, No Chills Eyes: No Symptoms Ears, Nose, & Throat: No Symptoms Respiratory: No Cough, No Dyspnea Cardiac: Chest Pain, Syncope (?), No Edema Abdominal/Gastrointestinal: No Abdominal Pain, No Nausea, No Vomiting, No Diarrhea Genitourinary Symptoms: No Dysuria Musculoskeletal: No Back Pain, No Injury Skin: No Rash Neurological: No Headache All Other Systems: Reviewed and Negative - Past Medical History Pertinent Past Medical History: Yes Neurological History: Migraines, Seizures ENT History: No Pertinent History Cardiac History: Angina, Hypertension, Other Respiratory History: Sleep Apnea Endocrine Medical History: No Pertinent History Musculoskeletal History: Fractures GI Medical History: Pancreatitis History: No Pertinent History Psycho-Social History: Attention Deficit Disorder, Depression, Eating Disorders , Panic Disorder, Other Male Reproductive Disorders: No Pertinent History Other Medical History: Seizure - Past Surgical History Past Surgical History: No Neuro Surgical History: No Pertinent History Cardiac: No Pertinent History Respiratory: No Pertinent History Gastrointestinal: No Pertinent History Genitourinary: No Pertinent History Musculoskeletal: No Pertinent History Male Surgical History: No Pertinent History - Social History Smoking Status: Current every day smoker How long have you smoked: 10 YEARS Exposure to second hand smoke: Yes Drug Use: methamphetamines Patient Lives Alone: No - Nursing Vital Signs Nursing Vital Signs: Initial Vital Signs Temperature 98.0 F 12/17/16 17:25 Pulse Rate 135 H 12/17/16 17:25 Respiratory Rate 48 H 12/17/16 17:25 Blood Pressure 99/75 12/17/16 17:25 O2 Sat by Pulse Oximetry 98 12/17/16 17:25 Pain Scale Pain Intensity 6 - Physical Exam General Appearance: alert Eye Exam: PERRL/EOMI Ears, Nose, Throat Exam: dry mucous membranes Neck Exam: normal inspection, non-tender, supple Respiratory Exam: normal breath sounds Cardiovascular Exam: regular rate/rhythm, tachycardia Gastrointestinal/Abdomen Exam: soft, tenderness (diffuse discomfort), No distention, No mass Male Genitalia Exam: normal genitalia, No hernia, No testicular tenderness Back Exam: normal inspection, normal range of motion, No vertebral tenderness Extremity Exam: normal inspection, normal range of motion Neurologic Exam: alert, cooperative, sensation nml, other (anxious), No motor deficits Skin Exam: warm, dry, No rash SpO2 Interpretation: normal SpO2: 98 Oxygen Delivery: Room Air - Course Nursing assessment & vital signs reviewed: Yes EKG Interpreted by Me: RATE (134), Sinus Tach, NORMAL AXIS, NORMAL INTERVALS ( QTc 456), Non-specific ST Changes - Radiology Exams cxr X-ray Interpretation: Reviewed by me (normal with righ basilar atelectasis, normal mediastinum) Ordered Tests: Active Orders 24 hr Category Date Time Status Auto 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 STAT Care 12/17/16 17:27 Active Clean Catch Urine Specimen STAT Care 12/17/16 17:26 Active EKG-ER Only STAT Care 12/17/16 17:26 Active IV Insertion STAT Care 12/17/16 17:26 Active IV Insertion-2nd Peripheral STAT Care 12/17/16 19:02 Active CHEST 1 VIEW (PORTABLE) Stat Exams 12/17/16 17:28 Taken ACETAMINOPHEN Stat Lab 12/17/16 17:46 Completed BLOOD CULTURE Stat Lab 12/17/16 17:45 Ordered BMP Stat Lab 12/17/16 17:46 Completed CBC W DIFF Stat Lab 12/17/16 17:46 Completed CK-Creatinine Phosphokinase Stat Lab 12/17/16 17:47 Completed ETHYL ALCOHOL Stat Lab 12/17/16 17:46 Completed Hepatic Function Panel Stat Lab 12/17/16 17:46 Completed LIPASE Stat Lab 12/17/16 17:47 Completed Lactic Acid Stat Lab 12/17/16 Results Lactic Acid Stat Lab 12/17/16 19:04 Results MAGNESIUM Stat Lab 12/17/16 17:45 Completed PROTIME WITH INR Stat Lab 12/17/16 17:46 Received PTT Stat Lab 12/17/16 17:46 Received SALICYLATE Stat Lab 12/17/16 17:46 Completed TROPONIN Q3H Lab 12/17/16 17:46 Completed TROPONIN Q3H Lab 12/17/16 20:30 Ordered TROPONIN Q3H Lab 12/17/16 23:30 Ordered TROPONIN Q3H Lab 12/18/16 02:30 Ordered TROPONIN Q3H Lab 12/18/16 05:30 Ordered UA W/RFX UR CULTURE Stat Lab 12/17/16 19:15 Received Urine Triage Profile Stat Lab 12/17/16 19:15 Received VENOUS BLOOD GAS Stat Lab 12/17/16 17:28 Completed Medication Summary Generic Name Dose Route Start Last Admin Trade Name Freq PRN Reason Stop Dose Admin Magnesium Sulfate/Dextrose 100 mls @ 100 mls/hr 12/17/16 19:00 12/17/16 19:01 Magnesium 1 Gm / 100 Ml D5w IV 12/17/16 20:59 100 mls/hr Q1H BOO Administration Potassium Chloride 100 mls @ 50 mls/hr 12/17/16 19:03 Potassium Chloride 20 Meq In Water 100ml IV 12/17/16 21:02 STAT ONE Discontinued Medications Generic Name Dose Route Start Last Admin Trade Name Pauly PRN Reason Stop Dose Admin Sodium Chloride 1,000 mls @ 999 mls/hr 12/17/16 17:26 12/17/16 17:50 Sodium Chloride 0.9% 1000 Ml IV 12/17/16 18:26 999 mls/hr .Q1H1M STA Administration Sodium Chloride Confirm 12/17/16 17:46 Sodium Chloride 0.9% 1000 Ml Administered 12/17/16 17:47 Dose 1,000 mls @ ud .ROUTE .STK-MED ONE Lactated Ringer's 1,000 mls @ 999 mls/hr 12/17/16 17:51 12/17/16 18:04 Lactated Ringers IV 12/17/16 18:51 999 mls/hr .Q1H1M ONE Administration Lactated Ringer's 1,000 mls @ 999 mls/hr 12/17/16 17:51 12/17/16 19:00 Lactated Ringers IV 12/17/16 18:51 999 mls/hr .Q1H1M ONE Administration Lactated Ringer's Confirm 12/17/16 18:03 Lactated Ringers Administered 12/17/16 18:04 Dose 1,000 mls @ ud IV .STK-MED ONE Ampicillin Sodium/Sulbactam Sodium 3 gm in 100 mls @ 200 mls/hr 12/17/16 18: 48 12/17/16 19:17 Unasyn 3gm / Nacl 100ml IV 12/17/16 19:17 200 mls/hr STAT STA Administration Lactated Ringer's Confirm 12/17/16 18:59 Lactated Ringers Administered 12/17/16 19:00 Dose 1,000 mls @ ud IV .STK-MED ONE Ampicillin Sodium/Sulbactam Sodium Confirm 12/17/16 19:15 Unasyn 3gm / Nacl 100ml Administered 12/17/16 19:16 Dose 3 gm in 100 mls @ ud .ROUTE .STK-MED ONE Lorazepam 1 mg 12/17/16 17:26 08/26/17 17:51 Ativan 2 Mg/1 Ml Vial IV 12/17/16 17:27 1 mg STAT ONE Administration Lorazepam Confirm 12/17/16 17:44 Ativan 2 Mg/1 Ml Vial Administered 12/17/16 17:45 Dose 2 mg .ROUTE .STK-MED ONE Lorazepam 1 mg 12/17/16 18:36 12/17/16 18:43 Ativan 2 Mg/1 Ml Vial IV 12/17/16 18:37 1 mg STAT ONE Administration Lorazepam Confirm 12/17/16 18:42 Ativan 2 Mg/1 Ml Vial Administered 12/17/16 18:43 Dose 2 mg .ROUTE .STK-MED ONE Thiamine HCl 100 mg 12/17/16 17:26 12/17/16 17:51 Thiamine 200 Mg/2 Ml IM 12/17/16 17:27 100 mg STAT ONE Administration Thiamine HCl Confirm 12/17/16 17:43 Thiamine 200 Mg/2 Ml Administered 12/17/16 17:44 Dose 200 mg .ROUTE .STK-MED ONE Ziprasidone 10 mg 12/17/16 17:26 12/17/16 17:51 Geodon 20 Mg Inj IM 12/17/16 17:27 10 mg STAT ONE Administration Ziprasidone Confirm 12/17/16 17:43 Geodon 20 Mg Inj Administered 12/17/16 17:44 Dose 20 mg IM .STK-MED ONE Lab/Rad Data: Laboratory Result Diagrams 12/17/16 17:46 12/17/16 17:46 Laboratory Results 12/17/16 12/17/16 12/17/16 Range/Units Unknown 19:04 17:47 WBC (4.0-10.5) K/mm3 RBC (4.1-5.6) M/mm3 Hgb (12.5-18.0) gm/dl Hct (42-50) % MCV (78-100) fl MCH (26-32) pg MCHC (32-36) g/dl RDW (11.5-14.0) % Plt Count (150-450) K/mm3 MPV (6-9.5) fl Gran % (36.0-66.0) % Lymphocytes % (24.0-44.0) % Monocytes % (0.0-12.0) % Eosinophils % (0.00-5.0) % Basophils % (0.0-0.4) % Basophils # (0-0.4) VBG pH (7.32-7.42) VBG pCO2 at Pat Temp (42-55) mm/Hg VBG pO2 at Pat Temp (25-40) mm/Hg VBG HCO3 (22-28) meq/L VBG O2 Sat (Sena) (95-100) VBG Base Excess (-2.0-2.0) VBG Hemoglobin VBG Carboxyhemoglobin (0.0-6.9) % T HGB POC Potassium (3.5-5.1) Sodium (136-145) mEq/L Potassium (3.5-5.1) mEq/L Chloride (98-107) mEq/L Carbon Dioxide (21-32) mEq/L Anion Gap (5-15) MEQ/L BUN (9-20) mg/dL Creatinine (0.55-1.30) mg/dl Estimated GFR ML/MIN Glucose (70-110) MG/DL Lactic Acid 7.1 H 5.6 H (0.4-2.0) Calcium (8.5-10.1) mg/dL Magnesium (1.8-2.4) mg/dL Total Bilirubin (0.2-1.0) mg/dL Direct Bilirubin (0.0-0.2) MG/DL AST (15-37) U/L ALT (12-78) U/L Alkaline Phosphatase (46-116) U/L Creatine Kinase 314 H (39-308) U/L Troponin I (0.000-0.056) ng/ml Serum Total Protein (6.4-8.2) gm/dL Albumin (3.4-5.0) g/dL Lipase 343 (73-393) U/L Salicylates (2.8-20.0) mg/dl Acetaminophen (10-30) ug/ml Ethyl Alcohol (0.00-0.01) % 12/17/16 12/17/16 12/17/16 Range/Units 17:46 17:46 17:46 WBC 6.7 (4.0-10.5) K/mm3 RBC 4.76 (4.1-5.6) M/mm3 Hgb 15.1 (12.5-18.0) gm/dl Hct 43.6 (42-50) % MCV 91.6 (78-100) fl MCH 31.7 (26-32) pg MCHC 34.6 (32-36) g/dl RDW 13.5 (11.5-14.0) % Plt Count 159 (150-450) K/mm3 MPV 10.3 H (6-9.5) fl Gran % 68.2 H (36.0-66.0) % Lymphocytes % 27.7 (24.0-44.0) % Monocytes % 3.4 (0.0-12.0) % Eosinophils % 0.6 (0.00-5.0) % Basophils % 0.1 (0.0-0.4) % Basophils # 0.01 (0-0.4) VBG pH (7.32-7.42) VBG pCO2 at Pat Temp (42-55) mm/Hg VBG pO2 at Pat Temp (25-40) mm/Hg VBG HCO3 (22-28) meq/L VBG O2 Sat (Sean) (95-100) VBG Base Excess (-2.0-2.0) VBG Hemoglobin VBG Carboxyhemoglobin (0.0-6.9) % T HGB POC Potassium (3.5-5.1) Sodium 138 (136-145) mEq/L Potassium 3.0 L* (3.5-5.1) mEq/L Chloride 95 L (98-107) mEq/L Carbon Dioxide 16.7 L (21-32) mEq/L Anion Gap 28.9 H (5-15) MEQ/L BUN 16 (9-20) mg/dL Creatinine 1.79 H (0.55-1.30) mg/dl Estimated GFR 45 ML/MIN Glucose 134 H (70-110) MG/DL Lactic Acid (0.4-2.0) Calcium 9.1 (8.5-10.1) mg/dL Magnesium (1.8-2.4) mg/dL Total Bilirubin 1.20 H (0.2-1.0) mg/dL Direct Bilirubin 0.33 H (0.0-0.2) MG/DL AST 128 H (15-37) U/L ALT 80 H (12-78) U/L Alkaline Phosphatase 113 (46-116) U/L Creatine Kinase (39-308) U/L Troponin I < 0.017 (0.000-0.056) ng/ml Serum Total Protein 8.2 (6.4-8.2) gm/dL Albumin 4.0 (3.4-5.0) g/dL Lipase (73-393) U/L Salicylates < 2.8 L (2.8-20.0) mg/dl Acetaminophen < 2.0 L (10-30) ug/ml Ethyl Alcohol 0.166 H* (0.00-0.01) % 12/17/16 12/17/16 Range/Units 17:45 17:28 WBC (4.0-10.5) K/mm3 RBC (4.1-5.6) M/mm3 Hgb (12.5-18.0) gm/dl Hct (42-50) % MCV (78-100) fl MCH (26-32) pg MCHC (32-36) g/dl RDW (11.5-14.0) % Plt Count (150-450) K/mm3 MPV (6-9.5) fl Gran % (36.0-66.0) % Lymphocytes % (24.0-44.0) % Monocytes % (0.0-12.0) % Eosinophils % (0.00-5.0) % Basophils % (0.0-0.4) % Basophils # (0-0.4) VBG pH 7.54 H (7.32-7.42) VBG pCO2 at Pat Temp 20 L* (42-55) mm/Hg VBG pO2 at Pat Temp 54 H (25-40) mm/Hg VBG HCO3 17.1 L (22-28) meq/L VBG O2 Sat (Sean) 93.4 L (95-100) VBG Base Excess -2.7 L (-2.0-2.0) VBG Hemoglobin 16.0 VBG Carboxyhemoglobin 3.8 (0.0-6.9) % T HGB POC Potassium 3.1 L (3.5-5.1) Sodium (136-145) mEq/L Potassium (3.5-5.1) mEq/L Chloride (98-107) mEq/L Carbon Dioxide (21-32) mEq/L Anion Gap (5-15) MEQ/L BUN (9-20) mg/dL Creatinine (0.55-1.30) mg/dl Estimated GFR ML/MIN Glucose (70-110) MG/DL Lactic Acid (0.4-2.0) Calcium (8.5-10.1) mg/dL Magnesium 1.6 L (1.8-2.4) mg/dL Total Bilirubin (0.2-1.0) mg/dL Direct Bilirubin (0.0-0.2) MG/DL AST (15-37) U/L ALT (12-78) U/L Alkaline Phosphatase (46-116) U/L Creatine Kinase (39-308) U/L Troponin I (0.000-0.056) ng/ml Serum Total Protein (6.4-8.2) gm/dL Albumin (3.4-5.0) g/dL Lipase (73-393) U/L Salicylates (2.8-20.0) mg/dl Acetaminophen (10-30) ug/ml Ethyl Alcohol (0.00-0.01) % - Progress Progress Note: 12/17/16 19:25 Friend here and states pt passed out twice and had a brief seizure while driving here. Pt has had seizures in the past. He appears to have some degree of alcohol withdrawal even though alcohol in system. Cultures sent. IVF bolus given. Repeat lactic improving. No focal source of infection. He likely has some degree of alcoholic hepatitis. Hepatitis profile and HIV sent. Patient agrees for admission. Called Dr Gucci Austin and will place in ICU observation. Discussed with : Gucci Will see patient in: hospital (observation) Counseled pt/family regarding: drug and/or alcohol abuse, lab results, diagnosis , rad results - Departure Time of Disposition: 19:27 Departure Disposition: Observation (ICU) Clinical Impression: Alcohol withdrawal syndrome, Schizoaffective disorder, Alcoholic hepatitis, Hypomagnesemia Condition: Serious Critical Care Time: Yes Critical Care Time(excluding separately billable procedures): 30-74 minutes Referrals: BRIANNA AUSTIN [Primary Care Provider] -
[2016-12-17 18:16] LABS: LIPASE 343 U/L (73-393)
[2016-12-17 18:19] LABS: ACETAMINOPHEN < 2.0 ug/ml (10-30)
[2016-12-17] MEDS ORDERED: Unasyn 3GM / NaCl 100ML 3 GM/100 ML IVPB IV STA (18:48)
[2016-12-17] MEDS ORDERED: Magnesium 1 Gm / 100 Ml D5W*** 200 ML IV ONE (18:53)
[2016-12-17] MEDS: Magnesium 1 Gm / 100 Ml D5W*** 100 ML IV SCH ×2 (18:54→19:01)
[2016-12-17] MEDS ORDERED: POTASSIUM CHLORIDE 20 mEq IN WATER 100ML 100 ML IV ONE ×2 (19:03→19:41)
[2016-12-17 19:12] LABS: Lactic Acid 5.6 (0.4-2.0)
[2016-12-17] MEDS ORDERED: Unasyn 3GM / NaCl 100ML 3 GM/100 ML IVPB ONE (19:15)
--- NOTE | 2016-12-17 19:32 | XRAY ---
Indication: Chest pain. Comparison: May 04, 2016. Portable chest demonstrates new right base discoid atelectasis/scarring. Remaining heart, lungs, and bony thorax normal.
[2016-12-17 19:36] LABS: Bilirubin SMALL (NEGATIVE); Blood 50 Ery/ul (0-5); COMPLETE URINE MICROSCOPIC? YES; Collection Type CATH; Leukocyte Esterase TRACE (NEGATIVE)
[2016-12-17 19:37] LABS: ADD URINE CULTURE? YES (NO); Bacteria MODERATE /HPF (NEGATIVE); Epithelial Cells FEW /HPF (FEW); Glucose NEGATIVE (NEGATIVE); Hyaline Casts 0-2 /LPF (0-2); Mucus MODERATE /HPF (NEGATIVE); WBC 0-2 /HPF (0-5)
[2016-12-17] MEDS ORDERED: Dextrose 5%-Lr IV Solution 1000 ML 1,000 ML IV SCH (20:37)
[2016-12-17] MEDS ORDERED: MORPHINE SULFATE 4 MG INJ IV PRN (22:09)
[2016-12-17] MEDS ORDERED: Nitrostat 0.4 MG Tablet SL PRN (22:09)
[2016-12-17] MEDS ORDERED: Unasyn 1.5GM Vial ONE (22:53)
[2016-12-17] MEDS: Pepcid 20 MG VIAL IV SCH (22:57)
[2016-12-18] MEDS: Unasyn 1.5GM / NaCl 100ML 1.5 GM/100 ML IVPB IV SCH ×4 (00:05→19:28)
[2016-12-18] MEDS: Ativan 2 MG/1 ML VIAL IV PRN ×5 (00:15→22:09)
[2016-12-18] MEDS ORDERED: Sodium Chloride 0.9% 100 ML IVPB 100 ML IV ONE (05:32)
[2016-12-18] MEDS ORDERED: Unasyn 1.5GM Vial ONE (05:32)
[2016-12-18 07:12] LABS: Mean Corpuscular Hemoglobin 32.2 pg (26-32); Mean Platelet Volume 10.3 fl (6-9.5); Platelet Count 85 K/mm3 (150-450); Red Blood Count 3.97 M/mm3 (4.1-5.6); Red Cell Distribution Width 13.6 % (11.5-14.0); White Blood Count 5.3 K/mm3 (4.0-10.5)
[2016-12-18 08:01] LABS: ALBUMIN 3.1 g/dL (3.4-5.0); ALKALINE PHOSPHATASE 91 U/L (46-116); ANION GAP 16.4 MEQ/L (5-15); BLOOD UREA NITROGEN 11 mg/dL (9-20); CHLORIDE 103 mEq/L (98-107); Carbon Dioxide 22.8 mEq/L (21-32); Glucose 88 MG/DL (70-110); Potassium 3.5 mEq/L (3.5-5.1); SGOT/AST 101 U/L (15-37); SGPT/ALT 60 U/L (12-78); SODIUM 139 mEq/L (136-145); Total Protein 6.4 gm/dL (6.4-8.2)
[2016-12-18] MEDS: Pepcid 20 MG VIAL IV SCH ×2 (10:58→22:08)
[2016-12-18] MEDS: THIAMINE 200 MG/2 ML IM SCH (10:58)
[2016-12-18 11:02] LABS: MAGNESIUM 1.6 mg/dL (1.8-2.4)
[2016-12-18 11:04] LABS: TROPONIN 0.192 ng/ml (0.000-0.056)
[2016-12-18] MEDS: Zestril 20 MG PO SCH (12:26)
[2016-12-18] MEDS: Prozac 20 MG PO SCH (12:26)
[2016-12-18] MEDS: Abilify 10 MG PO SCH (12:26)
[2016-12-18] MEDS: ENOXAPARIN SODIUM SQ SCH (12:26)
[2016-12-18 14:10] LABS: Platelet Estimate DECREASED (NORMAL); Total Cells Counted 100
[2016-12-18] MEDS ORDERED: Sodium Chloride 0.9% 10 ML FLUSH Syringe IV PRN (15:11)
[2016-12-18] MEDS: LIBRIUM 25 MG PO PRN ×2 (15:48→22:07)
[2016-12-18] MEDS: ECOTRIN 81 MG PO SCH (16:40)
[2016-12-18] MEDS ORDERED: Lopressor 25MG Tab PO SCH (22:00)
[2016-12-18] MEDS: Sodium Chloride 0.9% 10 ML FLUSH Syringe IV SCH (22:19)
[2016-12-19 00:17] LABS: HEPATITIS B VIRUS CORE TOT AB Non Reactive (Non Reactive); Hepatitis B Surface Ab.Quant. <3.50 mIU/mL (0.00-8.49)
[2016-12-19] MEDS: Ativan 2 MG/1 ML VIAL IV PRN ×6 (01:07→21:05)
[2016-12-19] MEDS: Unasyn 1.5GM / NaCl 100ML 1.5 GM/100 ML IVPB IV SCH ×2 (01:07→07:01)
[2016-12-19] MEDS: LIBRIUM 25 MG PO PRN ×2 (04:21→18:51)
[2016-12-19] MEDS ORDERED: Zofran 4 MG/2 ML VIAL IV PRN ×2 (04:54→09:05)
[2016-12-19] MEDS: Nicoderm CQ 21 MG TOP SCH (05:00)
[2016-12-19] MEDS: Sodium Chloride 0.9% 10 ML FLUSH Syringe IV SCH ×3 (07:01→21:15)
--- NOTE | 2016-12-19 08:40 | HP ---
CHIEF COMPLAINT: Seizure disorder, alcohol intoxication, alcohol dependence, anxiety and depression. HISTORY OF PRESENT ILLNESS: The patient is a white male patient who presented to the emergency room. He apparently had somewhat what the patient describes as likely been a seizure. He had a passing out episode but no one was around to otherwise describe what they saw as far as this seizure. He does have a history of having seizures in the past. He is on no seizure medicine presently. The patient had apparently told the emergency room staff that he had been having left arm pain as well. When he arrived at the emergency room his alcohol level was 0.16 but the patient reports that he is a heavy alcohol drinker and he is concerned about withdrawals. The patient also has a significant psychiatric history but has not been taking medications as he reports that they do not help. The patient currently sees Dr. Turk but has not seen her recently. MEDICATIONS: Abilify 10 mg a day and fluoxetine 40 mg a day. He is on lisinopril 20 mg a day. ALLERGIES: NKDA. PHYSICAL EXAMINATION: The patient's vital signs showed a temperature of 98.0F, pulse 135, respiratory rate 48, blood pressure 199/75. HEENT: Normocephalic, atraumatic. Pupils equal round reactive to light. Extraocular movements intact. Oropharynx is pink and moist. NECK: Supple without lymphadenopathy, thyromegaly or JVD. CHEST: Currently is clear to auscultation with good air movement bilaterally. HEART: Regular rate and rhythm without murmurs, rubs or gallops. His rate is currently 65. He is in normal sinus rhythm on telemetry. ABDOMEN: Soft, nontender, nondistended without hepatosplenomegaly or masses. EXTREMITIES: Without cyanosis, clubbing or edema. NEUROLOGIC: The patient is alert and oriented x3. No focal deficits noted. LAB DATA AND TESTS: EKG showed sinus tachycardia with nonspecific ST-T wave changes noted. His initial laboratory studies in the emergency room showed his lactic acid to 5.6. He also had a subsequent one at 7.1. His venous blood gas showed pH of 7.54 with pCO2 20. His CBC was normal. His troponin was less than 0.017. Magnesium was slightly low at 1.6, lipase normal at 343, CPK was slightly high at 314. His metabolic panel showed glucose 134, BUN 16, creatinine 1.79, potassium low at 3.0. His bilirubin was slightly high at 1.2. Liver enzymes were mildly elevated at SGOT 128, SGPT 80. His salicylate and acetaminophen levels were essentially negative. Again his ETOH was 0.166. ASSESSMENT: A patient with seizure disorder, left arm pain. He was admitted to check his serial enzymes. He is currently free of any discomfort that he described previously. We will recheck his cardiac enzymes and attempt to obtain a cardiology consultation. If he has any more symptoms we may need to transfer him to another facility.
--- NOTE | 2016-12-19 08:44 | ECHO ---
Transthoracic echocardiographic examination and color Doppler was done on 12/18/2016. INDICATION: Chest pain, syncope, history of alcohol abuse. IMPRESSION: 1) NO REGIONAL WALL MOTION ABNORMALITY. ESTIMATED GLOBAL LEFT VENTRICULAR EJECTION FRACTION OF AROUND 60%. 2) TRACE MITRAL REGURGITATION. 3) TRACE TRICUSPID REGURGITATION. RIGHT VENTRICULAR SYSTOLIC PRESSURE OF 22 MM OF MERCURY. 4) LEFT VENTRICULAR HYPERTROPHY. The left ventricle is visualized and demonstrated adequate motion of all the segments. Estimated global left ventricular ejection fraction 60%. There is concentric left ventricular hypertrophy. The mitral valve is seen and this opens adequately. There is trace mitral regurgitation. Left atrium is normal. The aortic valve opens adequately. There is no significant gradient across the left ventricular outflow tract. Right side chambers are normal. There is trace tricuspid regurgitation. The right ventricular systolic pressure of 22 mm of Mercury.
--- NOTE | 2016-12-19 09:00 | CONS ---
CONSULT DATE: 12/18/2016 BRIEF HISTORY: This is a 41 year-old male who was seen because of "chest pains" and also elevated troponin I. The patient was actually admitted with alcohol intoxication. There was also some question as to whether he had seizure activity. He had tested positive for benzodiazepines. He states that he has been having chest pains that he describes as vague related to effort continuous associated with some tingling sensation to the left arm. He was also noted to be hypokalemic on admission. His alcohol level is 0.166. The patient denies any prior exertional-type of chest pains. On examination he is feeling much better. He states that his pain continues and unrelated to effort and does seem to be aggravated by deep inspiration. The patient was admitted to this hospital because of ETOH usage. The patient also has history of chronic methamphetamine usage and has also used cocaine and marijuana in the past. He has never had myocardial infarction or heart failure. Otherwise his exercise tolerance has been fairly stable. CARDIAC RISK FACTORS: Negative for diabetes. He smokes close to a pack or a pack of cigarettes a day. No hypertension. No known hyperlipidemia. FAMILY HISTORY: Negative for premature coronary artery disease. Although he did mention that his father had "mild heart attack". REVIEW OF SYSTEMS: SKIVER UPPERS OR LININGS: There is history of seizures or stroke. RESPIRATORY: No chronic cough, no hemoptysis. GI: No history of peptic ulcer or colon disorder. : Negative for dysuria or hematuria. PERIPHERAL VASCULAR: No history of DVT or claudication. SKIN: No active dermatological problems. HEMATOLOGY: No history of blood dyscrasia or transfusion. PHYSICAL EXAMINATION: The blood pressure is 140/82, heart rate 80, respiratory rate about 14. GENERAL: The patient is a middle aged male who is alert, oriented and in not in any form of distress. HEENT: Unremarkable. NECK: No significant JVD. No carotid bruit. CHEST: The breath sounds are clear. CARDIAC: Heart tones are normal. The rhythm is regular. ABDOMEN: Soft with normal bowel sounds. EXTREMITIES: No significant edema. Good distal pulses. LAB DATA AND DIAGNOSTIC TESTS: The EKG shows sinus rhythm. No significant ST-T displacement. Troponin I was 0.237. The echocardiogram shows a normal left ventricular systolic function. There are no significant valvular regurgitation. IMPRESSION: In essence the patient presented with: 1) Alcohol intoxication, elevated troponin is most likely secondary to an acute myocardial injury as a result of chronic ETOH usage. I would suggest a pharmacologic stress test to see if there is induced ischemia. His chest pain is somewhat atypical for angina. Need to discuss with the patient about the need to quit smoking which ultimately would cause him chronic myocardial injury. 2) Chronic tobacco usage. RECOMMENDATIONS: Start the patient on small dose of beta-blockers and also aspirin until we have obtained his pharmacologic stress test. I will follow with him in the clinic.
[2016-12-19] MEDS ORDERED: TYLENOL 325 MG PO PRN (09:01)
--- NOTE | 2016-12-19 09:12 | PCM.NOTE ---
Date and Time: 12/19/16905 Subjective Assessment: Patient says "This place did not seem the same at 3 am". He reports a friend named Mohini was here and wrote down all the medications he took this AM and probably got in trouble for it but his nurses do not remember him having a friend here. He reports that his head hurts. He states he just wants to be able to look out a window. He is noncompliant as he never comes to outpatient appointments after his hospitalizations. He denies ever having seen a psychiatrist. He has a long history of alcohol abuse and most recently meth use as well. He states he wants to try outpatient rehab. 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 is.) Neurologic Exam: alert, oriented x 3, cooperative, other (frequently yawning.) Skin Exam: normal color, warm, dry, other (IV in left arm), No rash Respiratory Exam: normal breath sounds, lungs clear, No crackles/rales, No rhonchi, No wheezing Cardiovascular Exam: regular rate/rhythm, normal heart sounds, No murmur, No friction rub, No gallop Gastrointestinal/Abdomen Exam: soft, normal bowel sounds Extremity Exam: other (no c/c/e) OBJECTIVE DATA Vital Signs: Vital Signs - 24 hr Temp Pulse Resp BP Pulse Ox 12/19/16 04:00 76 24 175/120 96 12/19/16 02:00 70 23 12/19/16 00:00 98.4 F 62 18 128/86 98 12/18/16 21:54 89 16 12/18/16 20:00 98.4 F 88 18 134/87 99 12/18/16 18:00 98.6 F 87 23 135/93 98 12/18/16 16:00 98.6 F 87 17 134/89 95 12/18/16 14:00 98.6 F 86 20 128/65 99 12/18/16 12:00 98.6 F 90 18 158/90 97 12/18/16 10:00 89 14 153/87 100 Pain Assessment - Last Documented Pain Intensity 3 Pain Scale Used 0-10 Pain Scale Intake and Output: Intake & Output 12/17/16 12/18/16 12/19/16 12/20/16 06:59 06:59 06:59 06:59 Intake Total 3682 1380 Output Total 875 250 Balance 2807 1130 Weight 96.098 kg Lab Results: Lab Results-Last 24 Hours 12/18/16 12/18/16 12/18/16 Range/Units 07:00 07:05 10:15 Segmented Neutrophils 60 (36.-66.) % Lymphocytes (Manual) 37 (24-44) % Monocytes (Manual) 3 (0.0-12.0) % Differential Comment NORMAL Platelet Estimate DECREASED (NORMAL) Magnesium 1.6 L (1.8-2.4) mg/dL Troponin I 0.192 H* (0.000-0.056) ng/ml Triglycerides 34 (30-200) mg/dL Cholesterol 147 (100-200) mg/dL LDL Cholesterol 71 (5-99) mg/dL HDL Cholesterol 62 H (35-60) mg/dL Heart Disease Risk Ratio 2.4 12/18/16 12/18/16 12/18/16 Range/Units 13:08 16:00 19:00 Segmented Neutrophils (36.-66.) % Lymphocytes (Manual) (24-44) % Monocytes (Manual) (0.0-12.0) % Differential Comment Platelet Estimate (NORMAL) Magnesium (1.8-2.4) mg/dL Troponin I 0.166 H* 0.132 H* 0.105 H* (0.000-0.056) ng/ml Triglycerides (30-200) mg/dL Cholesterol (100-200) mg/dL LDL Cholesterol (5-99) mg/dL HDL Cholesterol (35-60) mg/dL Heart Disease Risk Ratio 12/18/16 Range/Units 22:40 Segmented Neutrophils (36.-66.) % Lymphocytes (Manual) (24-44) % Monocytes (Manual) (0.0-12.0) % Differential Comment Platelet Estimate (NORMAL) Magnesium (1.8-2.4) mg/dL Troponin I 0.096 H* (0.000-0.056) ng/ml Triglycerides (30-200) mg/dL Cholesterol (100-200) mg/dL LDL Cholesterol (5-99) mg/dL HDL Cholesterol (35-60) mg/dL Heart Disease Risk Ratio Radiology Exams: Radiology Procedures Category Date Time Status ECHO W/2D AND DOPPLER [US] Routine Exams 12/18/16 Draft Assessment/Plan (1) Alcohol withdrawal syndrome Current Visit: Yes Status: Acute Assessment & Plan: Continue current protocol. Try to arrange for outpatient treatment. [facility] consult. Code(s): F10.239 - ALCOHOL DEPENDENCE WITH WITHDRAWAL, UNSPECIFIED (2) Illicit drug use Current Visit: Yes Status: Acute Assessment & Plan: Patient counseled that alcohol and drugs could be deadly. Not immune to Hep B. If he is agreeable as an outpatient he can start the Hep B series. Code(s): F19.90 - OTHER PSYCHOACTIVE SUBSTANCE USE, UNSPECIFIED, UNCOMPLICATED (3) Depression Current Visit: No Status: Acute Assessment & Plan: Continue abilfy and fluoxetine. Code(s): F32.9 - MAJOR DEPRESSIVE DISORDER, SINGLE EPISODE, UNSPECIFIED (4) Essential hypertension Current Visit: No Status: Acute Assessment & Plan: Add HCTZ, increase metoprolol, continue lisinopril and Hydralazine ordered as needed. Code(s): I10 - ESSENTIAL (PRIMARY) HYPERTENSION (5) Elevated troponin Current Visit: Yes Status: Acute Assessment & Plan: Dr. Rivas has seen him and per nursing, he is ok with him being discharged from a cardiac standpoint with an outpatient stress test. Code(s): R74.8 - ABNORMAL LEVELS OF OTHER SERUM ENZYMES (6) Hypomagnesemia Current Visit: Yes Status: Acute Assessment & Plan: Will give magnesium sulfate 1 g IV once for low magnesium yesterday after receiving 2 grams of magnesium sulfate in ER on 12/17/16. Nursing states he refused labs this AM. Code(s): E83.42 - HYPOMAGNESEMIA
[2016-12-19] MEDS: THIAMINE 200 MG/2 ML IM SCH (09:45)
[2016-12-19] MEDS: Prozac 20 MG PO SCH (09:47)
[2016-12-19] MEDS: Zestril 20 MG PO SCH (09:48)
[2016-12-19] MEDS: Lopressor 25MG Tab PO SCH ×2 (09:48→21:13)
[2016-12-19] MEDS: Apresoline 25 MG TABLET PO PRN ×2 (09:48→15:49)
[2016-12-19] MEDS: hydroDIURIL 25 MG PO SCH (09:49)
[2016-12-19] MEDS: Abilify 10 MG PO SCH (09:49)
[2016-12-19] MEDS: ENOXAPARIN SODIUM SQ SCH (09:50)
[2016-12-19] MEDS: ECOTRIN 81 MG PO SCH (09:50)
[2016-12-19] MEDS ORDERED: Magnesium 1 Gm / 100 Ml D5W*** 100 ML IV ONE (10:00)
[2016-12-19] MEDS ORDERED: Magnesium Sulfate 1 GM/2 ML VIAL IV ONE (10:00)
[2016-12-19] MEDS ORDERED: NON-FORMULARY ITEM (Fluoxetine Hcl [Prozac] 40 MG) PO SCH (10:00)
[2016-12-20] MEDS: Apresoline 25 MG TABLET PO PRN ×2 (00:35→04:36)
[2016-12-20] MEDS: Ativan 2 MG/1 ML VIAL IV PRN (00:37)
[2016-12-20] MEDS: Nicoderm CQ 21 MG TOP SCH (04:37)
--- NOTE | 2016-12-20 08:39 | PCM.DCORD ---
- Discharge Discharge Date: 12/20/16 Disposition: Home, Self-Care Condition: Fair Prescriptions: New Aspirin EC 81 mg [Ecotrin 81 mg] 81 mg PO DAILY #30 tablet.ec Hydrochlorothiazide 25 mg [hydroDIURIL 25 MG] 25 mg PO DAILY #30 tablet Metoprolol Tartrate 25 mg [Lopressor 25MG Tab] 25 mg PO BID #60 tab Continue Aripiprazole 10 mg [Abilify 10 MG] 10 mg PO DAILY #30 tablet Fluoxetine HCl [Prozac] 40 mg PO DAILY #30 capsule Lisinopril 20 mg [Zestril 20 MG] 20 mg PO DAILY #30 tablet Discontinued Chlordiazepoxide HCl 25 mg [Librium 25 mg] 25 mg PO QID PRN #6 capsule PRN Reason: tremors Follow up with: EVANGELINA BAIG [ACTIVE STAFF] - 1 Week BRIANNA AUSTIN [Primary Care Provider] - Forms: Patient Portal Information
[2016-12-20] MEDS: Zestril 20 MG PO SCH (10:00)
[2016-12-20] MEDS: hydroDIURIL 25 MG PO SCH (10:00)
[2016-12-20] MEDS: ECOTRIN 81 MG PO SCH (10:00)
[2016-12-20] MEDS: Prozac 20 MG PO SCH (10:00)
[2016-12-20] MEDS: LIBRIUM 25 MG PO PRN (10:01)
[2016-12-20] MEDS: Abilify 10 MG PO SCH (10:01)
[2016-12-20] MEDS: Lopressor 25MG Tab PO SCH (10:03)
[2016-12-20] MEDS: ENOXAPARIN SODIUM SQ SCH (10:04)
[2016-12-20] MEDS: THIAMINE 200 MG/2 ML IM SCH (10:04)
[2016-12-20 10:13] VITALS: BP 167/103; PULSE 65; O2SAT 93
--- NOTE | 2016-12-20 12:51 | DS ---
DISCHARGE DIAGNOSES: 1) ALCOHOL WITHDRAWAL SYNDROME 2) ILLICIT DRUG USE. 3) DEPRESSION. 4) HYPERTENSION. 5) ELEVATED TROPONIN. 6) HYPOMAGNESEMIA. DISCHARGE PHYSICAL EXAMINATION: VITALS: Temperature current 97.9F, temperature max 98.7F, heart rate 65 to 73, respiratory rate 18, blood pressure 136 to 180 over 82 to 115 currently 163/109. Oxygen saturation 95% on room air. GENERAL: The patient is sitting up in bed talkative stating that he was ready to go home and did not want to stay, in no acute distress. CVS: He has a regular rate and rhythm. No murmurs, gallops or rubs. CHEST: Clear to auscultation bilaterally. No crackles or wheezes. ABDOMEN: Soft, nontender, nondistended with normal bowel sounds. EXTREMITIES: No clubbing, cyanosis or edema. SKIN: Warm, dry and intact. HOSPITAL COURSE: 1) ALCOHOL WITHDRAWAL: He was on alcohol withdrawal protocol while he was here as well as Librium as needed. He had listed as home medication of Librium. However INSPECT report showed that his last fill of this was in July 2016 by nurse practitioner, Lola De La Rosa, as a refill. He has been noncompliant. He has not followed up in the clinic. He has also been noncompliant with follow up with [facility] although he has been here in the hospital for multiple admissions. [facility] did see him while he was here and they are willing to do outpatient therapy with him if he will come to the appointments. The patient was instructed that the best thing to do for himself would be to stop drinking alcohol and stop using illicit drugs. The patient has had a history of suicide attempts in the past. He overdoses on medication. 2) ILLICIT DRUG USE: The patient stated that he had used methamphetamine before coming in. Again he was counseled that he needs to stop using illicit drugs. 3) DEPRESSION: He was continued on fluoxetine and Abilify while he was here and scripts were given for 30 days for this. However, he will need to follow up in the clinic for more refills. 4) HYPERTENSION: He was continued on his home dose of lisinopril. Dr. Rivas saw him and added metoprolol which was increased to 25 mg b.i.d. I also added hydrochlorothiazide 25 mg daily and he had hydralazine ordered here as needed PRN. We will continue with hydrochlorothiazide, metoprolol, lisinopril as an outpatient. 5) ELEVATED TROPONINS: Dr. Rivas, Manager Work, saw him and reports that he can be discharged from the cardiac standpoint and have outpatient stress test which will need to be scheduled. 6) HYPOMAGNESEMIA: I gave him 1 gm of magnesium sulfate. He also received 2 gm in the emergency room. The patient refused labs yesterday. DISCHARGE MEDICATIONS: Aspirin 81 mg p.o. daily, hydrochlorothiazide 25 mg p.o. daily, metoprolol tartrate 25 mg p.o. b.i.d., Abilify 10 mg p.o. daily, fluoxetine 40 mg p.o. daily, lisinopril 20 mg p.o. daily. FOLLOW UP: He is to follow up with myself in one week and Dr. Rivas in one week to have an outpatient stress test and also follow up with the [facility]. DISPOSITION: The patient was discharged to home in stable condition.
== END 2016-12-20 10:15 | disposition home or self-care (01) | DRG 897 ==
LOC: ED 17:19 → INTOOBSV 20:25 → ICU 20:25 → OBSVTOIN 20:25 → INTOOBSV 12-18 12:00 → ED 12-18 17:19 → ICU 12-18 20:25 → MED SURG 12-19 13:55
PROVIDERS: ADMIT Internal Medicine; ATTEND Internal Medicine
DX: F10.239 Alcohol dependence with withdrawal, unspecified (principal); F19.90 Other psychoactive substance use, unspecified, uncomplicated; F32.9 Major depressive disorder, single episode, unspecified; I10 Essential (primary) hypertension; R79.89 Other specified abnormal findings of blood chemistry; E83.42 Hypomagnesemia; M79.602 Pain in left arm; Z72.0 Tobacco use
CPT/HCPCS: 36000; 36415; 71010; 80048; 80053; 80061; 80074; 80076; 80307; 81000; 82550; 82805; 83605; 83690; 83721; 83735; 84132; 84484; 85025; 85610; 85730; 86701; 86702; 87040; 87086; 87389; 90791; 93005; 93041; 93268; 93306; 96360; 96361; 96365; 96367; 96372; 96374; 96376; 99285; G0378; G0481; J0295; J1650; J2060; J2270; J2405; J3475; J3480; J3486; Q3014; A9270-GY

== ENCOUNTER 2017-05-14 23:10 | Observation (INO) | payer OTHER ==
[2017-05-14] MEDS ORDERED: Sodium Chloride 0.9% 1000 ML 1,000 ML IV STA (23:45)
--- NOTE | 2017-05-14 23:57 | ERPHSYRPT ---
- History of Present Illness Time Seen by Provider: 05/14/17 23:20 Source: patient Exam Limitations: clinical condition Physician History: PATIENT WITH A HISTORY OF CHRONIC ALCOHOL ABUSE, SUBSTANCE ABUSE, SCHIZOAFFECTIVE DISORDER, ADHD, MIGRAINE HEADACHE, PANCREATITIS, ALCOHOL WITHDRAWAL SEIZURES, PARENTS CALLED EMS FOR SYNCOPE X 2, DRINKING ALCOHOL TODAY , HE COMPLAINS OF A HEADACHE FOR 15 YEARS. DENIES BLURRED VISION, SLURRED SPEECH, FOCAL NUMBNESS, TINGLING OR WEAKNESS. EMS FOUND PATIENT IN BEDROOM, WITH HAND GUN ON NIGHT STAND INFORMED EMS THAT THEY CAN TAKE THE GUN AND END IT ALL FOR HIM. Timing/Duration: today Quality: throbbing Head Pain Location: global Severity of Pain-Max: moderate Severity of Pain-Current: moderate Recent Head Trauma: chronic headaches Associated Symptoms: denies symptoms Previous symptoms: same symptoms as today Allergies/Adverse Reactions: No Known Drug Allergies Allergy (Verified 05/14/17 23:52) Hx Tetanus, Diphtheria Vaccination/Date Given: Yes Hx Influenza Vaccination/Date Given: Yes Hx Pneumococcal Vaccination/Date Given: No - Review of Systems Constitutional: No Fever, No Chills Eyes: No Symptoms Ears, Nose, & Throat: No Symptoms Respiratory: No Symptoms, No Cough, No Dyspnea Cardiac: No Symptoms, No Chest Pain, No Edema, No Syncope Abdominal/Gastrointestinal: No Symptoms, No Abdominal Pain, No Nausea, No Vomiting, No Diarrhea Genitourinary Symptoms: No Symptoms, No Dysuria Musculoskeletal: No Symptoms, No Back Pain, No Neck Pain Skin: No Symptoms, No Rash Neurological: Other (SYNCOPE), No Dizziness, No Focal Weakness, No Sensory Changes Psychological: No Symptoms Endocrine: No Symptoms All Other Systems: Reviewed and Negative - Past Medical History Pertinent Past Medical History: Yes Neurological History: Migraines, Seizures ENT History: No Pertinent History Cardiac History: Angina, Hypertension, Other Respiratory History: Sleep Apnea Endocrine Medical History: No Pertinent History Musculoskeletal History: Fractures GI Medical History: Pancreatitis History: No Pertinent History Psycho-Social History: Attention Deficit Disorder, Depression, Eating Disorders , Panic Disorder, Other Male Reproductive Disorders: No Pertinent History Other Medical History: Seizure - Past Surgical History Past Surgical History: No Neuro Surgical History: No Pertinent History Cardiac: No Pertinent History Respiratory: No Pertinent History Gastrointestinal: No Pertinent History Genitourinary: No Pertinent History Musculoskeletal: No Pertinent History Male Surgical History: No Pertinent History - Social History Smoking Status: Current every day smoker How long have you smoked: 10 years Exposure to second hand smoke: Yes Drug Use: methamphetamines Patient Lives Alone: No - Nursing Vital Signs Nursing Vital Signs: Initial Vital Signs Respiratory Rate 20 05/14/17 23:36 Blood Pressure 145/95 05/14/17 23:36 O2 Sat by Pulse Oximetry 98 05/14/17 23:36 Pain Scale Pain Intensity 6 - Physical Exam General Appearance: no apparent distress Eye Exam: PERRL/EOMI Ears, Nose, Throat Exam: normal ENT inspection, moist mucous membranes Neck Exam: normal inspection, supple, full range of motion, No meningismus Respiratory Exam: normal breath sounds, lungs clear Cardiovascular Exam: regular rate/rhythm, normal heart sounds Gastrointestinal/Abdominal Exam: soft, normal bowel sounds, No tenderness, No distention Back Exam: normal inspection, normal range of motion Extremity Exam: normal inspection, normal range of motion Mental Status Exam: alert, 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 x 3, 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 Exam: normal hearing, normal speech, PERRL, No facial droop Coordination/Gait Exam: normal cerebellar function Motor/Sensory Exam: no motor deficit, no sensory deficit DTR Exam: bicep (R): 2+, bicep (L): 2+, tricep (R): 2+, tricep (L): 2+, knee (R) : 2+, knee (L): 2+, ankle (R): 2+, ankle (L): 2+ Skin Exam: normal color, warm, dry, No rash SpO2 Interpretation: normal SpO2: 95 Oxygen Delivery: Room Air - Course EKG Interpreted by Me: RATE, Sinus Rhythm, NORMAL AXIS, Non-specific ST Changes - CT Exams Head CT Interpretation: Tele-radiologist Report (NO ACUTE INTRACRANIAL PATHOLOGY) Ordered Tests: Active Orders 24 hr Category Date Time Status Bedrest with BRP/BSC TOLERATED Activity 05/15/17 02:04 Active Admission/Status Order ROUTINE Care 05/15/17 02:04 Active Talent Development Director ROUTINE Care 05/15/17 02:06 Active Clean Catch Urine Specimen STAT Care 05/14/17 23:45 Active EKG-ER Only STAT Care 05/14/17 23:45 Active IV Insertion ROUTINE Care 05/15/17 02:04 Active IV Insertion STAT Care 05/14/17 23:45 Active Implement Pneumonia Pathway ROUTINE Care 05/15/17 02:04 Active Vital Signs .[id number],q1hx2,[id number] Care 05/15/17 02:04 Active Tele-Health Consult ROUTINE Cons 05/15/17 02:12 Active Regular Diet Diet 05/15/17 Breakfast Active HEAD WITHOUT CONTRAST [CT] Stat Exams 05/14/17 23:45 Taken BMP Stat Lab 05/15/17 02:04 Ordered CBC W DIFF Stat Lab 05/15/17 02:04 Ordered Urine Triage Profile Stat Lab 05/14/17 23:45 Uncollected Respiratory Therapy Consult ROUTINE RT 05/15/17 02:04 Active Transfer Order Routine Transfer 05/15/17 Ordered Medication Summary Generic Name Dose Route Start Last Admin Trade Name Freq PRN Reason Stop Dose Admin Aripiprazole 10 mg 05/15/17 10:00 Abilify 10 Mg PO 06/14/17 09:59 DAILY BOO Aspirin 81 mg 05/15/17 10:00 Ecotrin 81 Mg PO 06/14/17 09:59 DAILY BOO Fluoxetine HCl 40 mg 05/15/17 10:00 Prozac 20 Mg PO 06/14/17 09:59 DAILY BOO Sodium Chloride 1,000 mls @ 999 mls/hr 05/15/17 01:52 05/15/17 01:59 Sodium Chloride 0.9% 1000 Ml IV 05/15/17 02:52 999 mls/hr .Q1H1M STA Administration Lisinopril 20 mg 05/15/17 10:00 Zestril 20 Mg PO 06/14/17 09:59 DAILY BOO Lorazepam 1 mg 05/15/17 02:09 Ativan 2 Mg/1 Ml Vial IV 06/14/17 02:08 PRN PRN CIWA SCORE Metoprolol Tartrate 25 mg 05/15/17 10:00 Lopressor 25mg Tab PO 06/14/17 09:59 BID BOO Ondansetron HCl 4 mg 05/15/17 02:07 05/15/17 02:12 Zofran 4 Mg/2 Ml Vial IV 06/14/17 02:06 4 mg Q4HPRN PRN Administration NAUSEA Discontinued Medications Generic Name Dose Route Start Last Admin Trade Name Freq PRN Reason Stop Dose Admin Sodium Chloride 1,000 mls @ 999 mls/hr 05/14/17 23:45 05/15/17 00:15 Sodium Chloride 0.9% 1000 Ml IV 05/15/17 00:45 999 mls/hr .Q1H1M STA Administration Sodium Chloride Confirm 05/15/17 00:14 Sodium Chloride 0.9% 1000 Ml Administered 05/15/17 00:15 Dose 1,000 mls @ ud .ROUTE .STK-MED ONE Magnesium Sulfate/Dextrose 100 mls @ 200 mls/hr 05/15/17 01:41 05/15/17 01:48 Magnesium 1 Gm / 100 Ml D5w IV 05/15/17 02:10 200 mls/hr STAT ONE Administration Magnesium Sulfate/Dextrose Confirm 05/15/17 01:48 Magnesium 1 Gm / 100 Ml D5w Administered 05/15/17 01:49 Dose 100 mls @ ud IV .STK-MED ONE Sodium Chloride Confirm 05/15/17 01:57 Sodium Chloride 0.9% 1000 Ml Administered 05/15/17 01:58 Dose 1,000 mls @ ud .ROUTE .STK-MED ONE Ondansetron HCl 4 mg 05/15/17 02:00 05/15/17 02:03 Zofran 4 Mg/2 Ml Vial IV 05/15/17 02:01 4 mg STAT ONE Administration Ondansetron HCl Confirm 05/15/17 02:02 Zofran 4 Mg/2 Ml Vial Administered 05/15/17 02:03 Dose 4 mg .ROUTE .STK-MED ONE Lab/Rad Data: Laboratory Result Diagrams 05/14/17 00:44 05/14/17 00:44 Laboratory Results 05/14/17 05/14/17 05/14/17 Range/Units 00:44 00:44 00:44 WBC (4.0-10.5) K/mm3 RBC (4.1-5.6) M/mm3 Hgb (12.5-18.0) gm/dl Hct (42-50) % MCV (78-100) fl MCH (26-32) pg MCHC (32-36) g/dl RDW (11.5-14.0) % Plt Count (150-450) K/mm3 MPV (6-9.5) fl Gran % (36.0-66.0) % Lymphocytes % (24.0-44.0) % Monocytes % (0.0-12.0) % Eosinophils % (0.00-5.0) % Basophils % (0.0-0.4) % Basophils # (0-0.4) Sodium 143 (136-145) mEq/L Potassium 3.5 (3.5-5.1) mEq/L Chloride 104 (98-107) mEq/L Carbon Dioxide 23.9 (21-32) mEq/L Anion Gap 18.4 H (5-15) MEQ/L BUN 6 L (9-20) mg/dL Creatinine 0.97 (0.55-1.30) mg/dl Estimated GFR > 60 ML/MIN Glucose 100 (70-110) MG/DL Calcium 7.5 L (8.5-10.1) mg/dL Magnesium 1.4 L (1.8-2.4) mg/dL Total Bilirubin 0.50 (0.2-1.0) mg/dL AST 276 H (15-37) U/L ALT 153 H (12-78) U/L Alkaline Phosphatase 127 H (46-116) U/L Serum Total Protein 7.7 (6.4-8.2) gm/dL Albumin 3.4 (3.4-5.0) g/dL Salicylates < 2.8 L (2.8-20.0) mg/dl Acetaminophen < 2.0 L (10-30) ug/ml Ethyl Alcohol 0.382 H* (0.00-0.01) % 05/14/17 Range/Units 00:44 WBC 3.8 L (4.0-10.5) K/mm3 RBC 4.78 (4.1-5.6) M/mm3 Hgb 15.1 (12.5-18.0) gm/dl Hct 44.8 (42-50) % MCV 93.7 (78-100) fl MCH 31.6 (26-32) pg MCHC 33.7 (32-36) g/dl RDW 16.8 H (11.5-14.0) % Plt Count 118 L (150-450) K/mm3 MPV 9.7 H (6-9.5) fl Gran % 46.3 (36.0-66.0) % Lymphocytes % 44.1 H (24.0-44.0) % Monocytes % 8.2 (0.0-12.0) % Eosinophils % 1.1 (0.00-5.0) % Basophils % 0.3 (0.0-0.4) % Basophils # 0.01 (0-0.4) Sodium (136-145) mEq/L Potassium (3.5-5.1) mEq/L Chloride (98-107) mEq/L Carbon Dioxide (21-32) mEq/L Anion Gap (5-15) MEQ/L BUN (9-20) mg/dL Creatinine (0.55-1.30) mg/dl Estimated GFR ML/MIN Glucose (70-110) MG/DL Calcium (8.5-10.1) mg/dL Magnesium (1.8-2.4) mg/dL Total Bilirubin (0.2-1.0) mg/dL AST (15-37) U/L ALT (12-78) U/L Alkaline Phosphatase (46-116) U/L Serum Total Protein (6.4-8.2) gm/dL Albumin (3.4-5.0) g/dL Salicylates (2.8-20.0) mg/dl Acetaminophen (10-30) ug/ml Ethyl Alcohol (0.00-0.01) % - Progress Progress: unchanged Progress Note: 05/15/17 02:01 IV NORMAL SALINE 2 LITERS OVER 3 HOURS, ZOFRAN 4MG IV, UNABLE TO OBTAIN TELE- PSYCH DUE TO ETOH LEVEL-0.382 Discussed with : Isabella (DISCUSSED WITH DR WILD AT 0200 FOR OBSERVATION) - Departure Time of Disposition: 02:10 Departure Disposition: Observation Clinical Impression: ALCOHOL INTOXICATION, DEPRESSION, HYPOMAGNESEMIA Condition: Stable Critical Care Time: No Referrals: BRIANNA AUSTIN [Primary Care Provider] -
[2017-05-15] MEDS ORDERED: Sodium Chloride 0.9% 1000 ML 1,000 ML ONE ×2 (00:14→01:57)
[2017-05-15 00:47] LABS: BASOPHIL % 0.3 % (0.0-0.4); Basophil (Absolute #) 0.01 (0-0.4); Eosinophil % 1.1 % (0.00-5.0); Eosinophil (Absolute #) 0.04 (0-0.5); Granulocyte Absolute (ANC) 1.76 (1.4-6.9); Granulocytes % 46.3 % (36.0-66.0); Hematocrit 44.8 % (42-50); Hemoglobin 15.1 gm/dl (12.5-18.0); Lymphocyte (Absolute #) 1.67 (1.0-4.6); Lymphocytes % 44.1 % (24.0-44.0); Mean Cell Volume 93.7 fl (78-100); Mean Corpuscular Hemoglobin 31.6 pg (26-32); Mean Corpuscular Hgb Concent. 33.7 g/dl (32-36); Mean Platelet Volume 9.7 fl (6-9.5); Monocyte (Absolute #) 0.31 (0.0-1.3); Monocytes % 8.2 % (0.0-12.0); Platelet Count 118 K/mm3 (150-450); Red Blood Count 4.78 M/mm3 (4.1-5.6); Red Cell Distribution Width 16.8 % (11.5-14.0); White Blood Count 3.8 K/mm3 (4.0-10.5)
[2017-05-15 01:18] LABS: SALICYLATE < 2.8 mg/dl (2.8-20.0)
[2017-05-15 01:20] LABS: ALBUMIN 3.4 g/dL (3.4-5.0); ALKALINE PHOSPHATASE 127 U/L (46-116); ANION GAP 18.4 MEQ/L (5-15); BLOOD UREA NITROGEN 6 mg/dL (9-20); CHLORIDE 104 mEq/L (98-107); Calcium 7.5 mg/dL (8.5-10.1); Carbon Dioxide 23.9 mEq/L (21-32); Creatinine 1 0.97 mg/dl (0.55-1.30); EST GLOMERULAR FILTRATION RATE > 60 ML/MIN; Glucose 100 MG/DL (70-110); Potassium 3.5 mEq/L (3.5-5.1); SGOT/AST 276 U/L (15-37); SGPT/ALT 153 U/L (12-78); SODIUM 143 mEq/L (136-145); Total Protein 7.7 gm/dL (6.4-8.2)
[2017-05-15 01:21] LABS: ACETAMINOPHEN < 2.0 ug/ml (10-30); ETHYL ALCOHOL 0.382 % (0.00-0.01)
[2017-05-15] MEDS ORDERED: Magnesium 1 Gm / 100 Ml D5W*** 100 ML IV ONE ×2 (01:41→01:48)
[2017-05-15] MEDS ORDERED: Sodium Chloride 0.9% 1000 ML 1,000 ML IV STA (01:52)
[2017-05-15] MEDS ORDERED: Zofran 4 MG/2 ML VIAL IV ONE (02:00)
[2017-05-15] MEDS ORDERED: Zofran 4 MG/2 ML VIAL ONE (02:02)
[2017-05-15] MEDS: Zofran 4 MG/2 ML VIAL IV PRN ×3 (02:12→14:39)
[2017-05-15] MEDS: Ativan 2 MG/1 ML VIAL IV PRN ×4 (04:05→14:39)
[2017-05-15 04:50] LABS: Amphetamine,Urine NEG. (NEGATIVE); Barbiturate,Urine NEG. (NEGATIVE); Benzodiazepine,Urine NEG. (NEGATIVE); Cocaine,Urine NEG. (NEGATIVE); Methadone,Urine NEG. (NEGATIVE); Opiate,Urine NEG. (NEGATIVE); PCP,Urine NEG. (NEGATIVE); THC,Urine NEG. (NEGATIVE)
[2017-05-15] MEDS ORDERED: Sodium Chloride 0.9% 1000 ML 1,000 ML IV SCH (08:00)
--- NOTE | 2017-05-15 08:40 | XRAY ---
Indication: Syncope. Multiple contiguous axial images obtained through the head without contrast. Comparison: June 26, 2016. Again normal appearing brain parenchyma, ventricles, and bony calvarium. Visualized paranasal sinuses and mastoid air cells are clear. Impression: Stable normal CT head without contrast exam. Comment: Preliminary interpretation was made by [facility]. No discrepancy. CT DI 69.25.
[2017-05-15] MEDS ORDERED: Abilify 10 MG PO SCH (10:00)
[2017-05-15] MEDS ORDERED: ECOTRIN 81 MG PO SCH (10:00)
[2017-05-15] MEDS ORDERED: Zestril 20 MG PO SCH (10:00)
[2017-05-15] MEDS ORDERED: Lopressor 25MG Tab PO SCH (10:00)
[2017-05-15] MEDS ORDERED: Prozac 20 MG PO SCH (10:00)
[2017-05-15 12:00] LABS: ALBUMIN 2.9 g/dL (3.4-5.0); ALKALINE PHOSPHATASE 109 U/L (46-116); ANION GAP 14.3 MEQ/L (5-15); BLOOD UREA NITROGEN 5 mg/dL (9-20); CHLORIDE 105 mEq/L (98-107); Calcium 7.1 mg/dL (8.5-10.1); Creatinine 1 0.83 mg/dl (0.55-1.30); EST GLOMERULAR FILTRATION RATE > 60 ML/MIN; Glucose 96 MG/DL (70-110); Potassium 3.4 mEq/L (3.5-5.1); SGOT/AST 221 U/L (15-37); SGPT/ALT 128 U/L (12-78); SODIUM 142 mEq/L (136-145); Total Protein 6.5 gm/dL (6.4-8.2)
[2017-05-15 12:23] VITALS: BP 114/58; PULSE 87; O2SAT 90
--- NOTE | 2017-05-15 12:30 | PCM.SSS ---
History of Present Illness - Chief Complaint Chief Complaint: alcohol intoxication, suicidal ideation for 1 -2 days History of Present Illness: is a 42 year old male. - Review of Systems Constitutional: No Fever, No Chills Eyes: No Symptoms Ears, Nose, & Throat: No Symptoms Respiratory: No Cough, No Short Of Breath Cardiac: No Chest Pain, No Edema, No Syncope Abdominal/Gastrointestinal: No Abdominal Pain, No Nausea, No Vomiting, No Diarrhea Genitourinary Symptoms: No Dysuria Musculoskeletal: No Back Pain, No Neck Pain Skin: No Rash Neurological: No Dizziness, No Focal Weakness, No Sensory Changes Psychological: Alcohol Abuse, Drug Abuse, Anxiety, Depression, Suicidal Ideations Endocrine: No Symptoms Hematologic/Lymphatic: No Symptoms Immunological/Allergic: No Symptoms Medications & Allergies Home Medications: Home Medication List Aspirin EC 81 mg [Ecotrin 81 mg] 81 mg PO DAILY #30 tablet.ec 12/20/16 [ Rx Confirmed 05/15/17] Hydrochlorothiazide 25 mg [hydroDIURIL 25 MG] 25 mg PO DAILY #30 tablet [Rx Confirmed 05/15/17] Lisinopril 20 mg [Zestril 20 MG] 20 mg PO DAILY #30 tablet 12/20/16 [Rx Confirmed 05/15/17] Escitalopram Oxalate [Lexapro] 20 mg PO DAILY 05/15/17 [History Confirmed ] Allergies/Adverse Reactions: Allergies Allergy/AdvReac Type Severity Reaction Status Date / Time No Known Drug Allergies Allergy Verified 05/14/17 23:52 - Past Medical History Past Medical History: Yes Neurological History: Migraines, Seizures ENT History: No Pertinent History Cardiac History: Angina, Hypertension, Other Respiratory History: Sleep Apnea Endocrine Medical History: No Pertinent History Musculoskelatal History: Fractures GI Medical History: Pancreatitis History: No Pertinent History Pyscho-Social History: Attention Deficit Disorder, Depression, Eating Disorders , Panic Disorder, Other Male Reproductive Disorders: No Pertinent History Comment: Seizure - Past Surgical History Past Surgical History: No Neuro Surgical History: No Pertinent History Cardiac History: No Pertinent History Respiratory Surgery: No Pertinent History GI Surgical History: No Pertinent History Genitourinary Surgical Hx: No Pertinent History Musculskeletal Surgical Hx: No Pertinent History Male Surgical History: No Pertinent History - Social History Smoking Status: Current every day smoker How long have you smoked: 10 years Exposure to second hand smoke: Yes Alcohol: Heavy Drug Use: bath salts, methamphetamines - Physical Exam Vital Signs: Vital Signs - 24 hr Temp Pulse Resp BP Pulse Ox 05/15/17 12:22 98 F 87 18 114/58 90 L 05/15/17 12:00 85 05/15/17 09:00 23 05/15/17 07:37 107 H 05/15/17 07:36 97.8 F 107 H 18 127/87 94 L 05/15/17 04:56 16 05/15/17 04:00 97 H 05/15/17 03:06 97.6 F 100 H 16 136/96 97 05/15/17 03:03 88 18 97 05/15/17 02:41 97.6 F 100 H 16 136/96 97 05/15/17 02:14 95 05/15/17 02:06 114 H 18 159/90 98 05/15/17 00:57 95 H 18 171/104 99 05/15/17 00:04 84 20 155/84 97 05/14/17 23:36 20 145/95 98 General Appearance: no apparent distress, alert Neurologic Exam: alert, oriented x 3, cooperative, normal mood/affect, nml cerebellar function, nml station & gait, sensation nml, No motor deficits Eye Exam: PERRL/EOMI, eyes nml inspection Ears, Nose, Throat Exam: normal ENT inspection, TMs normal, pharynx normal, moist mucous membranes Neck Exam: normal inspection, non-tender, supple, full range of motion Respiratory Exam: normal breath sounds, lungs clear, No respiratory distress Cardiovascular Exam: regular rate/rhythm, normal heart sounds, normal peripheral pulses Gastrointestinal/Abdomen Exam: soft, normal bowel sounds, No tenderness, No mass Back Exam: normal inspection, normal range of motion, No CVA tenderness, No vertebral tenderness Extremity Exam: normal inspection, normal range of motion, pelvis stable Skin Exam: normal color, warm, dry, No rash Lymphatic Exam: No adenopathy Results - Labs Lab/Micro Results: Lab Results-Last 24 Hours 05/15/17 05/15/17 05/15/17 Range/Units 11:08 11:32 Unknown Sodium 142 (136-145) mEq/L Potassium 3.4 L (3.5-5.1) mEq/L Chloride 105 (98-107) mEq/L Carbon Dioxide 26.0 (21-32) mEq/L Anion Gap 14.3 (5-15) MEQ/L BUN 5 L (9-20) mg/dL Creatinine 0.83 (0.55-1.30) mg/dl Estimated GFR > 60 ML/MIN Glucose 96 (70-110) MG/DL Calcium 7.1 L (8.5-10.1) mg/dL Magnesium 1.5 L (1.8-2.4) mg/dL Total Bilirubin 0.70 (0.2-1.0) mg/dL AST 221 H (15-37) U/L ALT 128 H (12-78) U/L Alkaline Phosphatase 109 (46-116) U/L Serum Total Protein 6.5 (6.4-8.2) gm/dL Albumin 2.9 L (3.4-5.0) g/dL Urine Opiates Level NEG. (NEGATIVE) Ur Methadone NEG. (NEGATIVE) Urine Barbiturates NEG. (NEGATIVE) Ur Phencyclidine (PCP) NEG. (NEGATIVE) Urine Amphetamine NEG. (NEGATIVE) U Benzodiazepine Level NEG. (NEGATIVE) Urine Cocaine NEG. (NEGATIVE) Urine Marijuana (THC) NEG. (NEGATIVE) Assessment/Plan (1) Suicidal behavior Current Visit: Yes Status: Acute Qualifiers: Attempted self-injury: without attempted self-injury Qualified Code(s): R46.89 - Other symptoms and signs involving appearance and behavior Assessment & Plan: Patient is being transferred to [facility] Code(s): R46.89 - OTHER SYMPTOMS AND SIGNS INVOLVING APPEARANCE AND BEHAVIOR (2) Alcohol withdrawal syndrome Current Visit: Yes Status: Acute Qualifiers: Complication of substance-induced condition: with perceptual disturbance Qualified Code(s): F10.232 - Alcohol dependence with withdrawal with perceptual disturbance Code(s): F10.239 - ALCOHOL DEPENDENCE WITH WITHDRAWAL, UNSPECIFIED (3) Depression Current Visit: Yes Status: Chronic Qualifiers: Depression Type: major depressive disorder Active/Remission status: currently active Code(s): F32.9 - MAJOR DEPRESSIVE DISORDER, SINGLE EPISODE, UNSPECIFIED (4) Hypomagnesemia Current Visit: Yes Status: Acute Code(s): E83.42 - HYPOMAGNESEMIA (5) Illicit drug use Current Visit: Yes Status: Chronic Code(s): F19.90 - OTHER PSYCHOACTIVE SUBSTANCE USE, UNSPECIFIED, UNCOMPLICATED Hospital Summary - Hospital Course Hospital Course: Chief Complaint Diagnosis alcohol intoxication, hypomagnesium, depression Allergies Allergy/AdvReac Type Severity Reaction Status Date / Time No Known Drug Allergies Allergy Verified 05/14/17 23:52 Vital Signs (Last 24 hours) Temp Pulse Resp BP Pulse Ox 05/15/17 12:22 98 F 87 18 114/58 90 L 05/15/17 12:00 85 05/15/17 09:00 23 05/15/17 07:37 107 H 05/15/17 07:36 97.8 F 107 H 18 127/87 94 L 05/15/17 04:56 16 05/15/17 04:00 97 H 05/15/17 03:06 97.6 F 100 H 16 136/96 97 05/15/17 03:03 88 18 97 05/15/17 02:41 97.6 F 100 H 16 136/96 97 05/15/17 02:14 95 05/15/17 02:06 114 H 18 159/90 98 05/15/17 00:57 95 H 18 171/104 99 05/15/17 00:04 84 20 155/84 97 05/14/17 23:36 20 145/95 98 Home Medications Medication Instructions Recorded Confirmed Last Taken Type Escitalopram Oxalate [Lexapro] 20 mg PO DAILY 05/15/17 05/15/17 Unknown History Current Medications Generic Name Dose Route Start Last Admin Trade Name Rcq PRN Reason Stop Dose Admin Aripiprazole 10 mg 05/15/17 10:00 05/15/17 08:28 Abilify 10 Mg PO 06/14/17 09:59 10 mg DAILY BOO Administration Aspirin 81 mg 05/15/17 10:00 05/15/17 08:29 Ecotrin 81 Mg PO 06/14/17 09:59 81 mg DAILY BOO Administration Fluoxetine HCl 40 mg 05/15/17 10:00 05/15/17 08:29 Prozac 20 Mg PO 06/14/17 09:59 40 mg DAILY BOO Administration Sodium Chloride 1,000 mls @ 100 mls/hr 05/15/17 08:00 05/15/17 08:29 Sodium Chloride 0.9% 1000 Ml IV 06/14/17 07:59 100 mls/hr .Q10H BOO Administration Influenza Virus Vaccine Quadrival 60 mcg 05/16/17 08:15 Flucelvax Quad [id number] Syr IM 05/16/17 08:16 .ONCE ONE Lisinopril 20 mg 05/15/17 10:00 05/15/17 08:31 Zestril 20 Mg PO 06/14/17 09:59 20 mg DAILY BOO Administration Lorazepam 0 mg 05/15/17 08:00 05/15/17 10:35 Ativan 2 Mg/1 Ml Vial IV 06/14/17 02:08 2 mg PRN PRN Administration CIWA SCORE Metoprolol Tartrate 25 mg 05/15/17 10:00 05/15/17 08:29 Lopressor 25mg Tab PO 06/14/17 09:59 25 mg BID BOO Administration Ondansetron HCl 4 mg 05/15/17 02:07 05/15/17 07:25 Zofran 4 Mg/2 Ml Vial IV 06/14/17 02:06 4 mg Q4HPRN PRN Administration NAUSEA Discontinued Medications Generic Name Dose Route Start Last Admin Trade Name Freq PRN Reason Stop Dose Admin Sodium Chloride 1,000 mls @ 999 mls/hr 05/14/17 23:45 05/15/17 00:15 Sodium Chloride 0.9% 1000 Ml IV 05/15/17 00:45 999 mls/hr .Q1H1M STA Administration Sodium Chloride Confirm 05/15/17 00:14 Sodium Chloride 0.9% 1000 Ml Administered 05/15/17 00:15 Dose 1,000 mls @ ud .ROUTE .STK-MED ONE Magnesium Sulfate/Dextrose 100 mls @ 200 mls/hr 05/15/17 01:41 05/15/17 01:48 Magnesium 1 Gm / 100 Ml D5w IV 05/15/17 02:10 200 mls/hr STAT ONE Administration Magnesium Sulfate/Dextrose Confirm 05/15/17 01:48 Magnesium 1 Gm / 100 Ml D5w Administered 05/15/17 01:49 Dose 100 mls @ ud IV .STK-MED ONE Sodium Chloride 1,000 mls @ 999 mls/hr 05/15/17 01:52 05/15/17 01:59 Sodium Chloride 0.9% 1000 Ml IV 05/15/17 02:52 999 mls/hr .Q1H1M STA Administration Sodium Chloride Confirm 05/15/17 01:57 Sodium Chloride 0.9% 1000 Ml Administered 05/15/17 01:58 Dose 1,000 mls @ ud .ROUTE .STK-MED ONE Lorazepam 1 mg 05/15/17 02:09 05/15/17 07:56 Ativan 2 Mg/1 Ml Vial IV 06/14/17 02:08 2 mg PRN PRN Administration CIWA SCORE Ondansetron HCl 4 mg 05/15/17 02:00 05/15/17 02:03 Zofran 4 Mg/2 Ml Vial IV 05/15/17 02:01 4 mg STAT ONE Administration Ondansetron HCl Confirm 05/15/17 02:02 Zofran 4 Mg/2 Ml Vial Administered 05/15/17 02:03 Dose 4 mg .ROUTE .STK-MED ONE Intake & Output (Last 24 hours) 05/13/17 05/14/17 05/15/17 05/16/17 11:59 11:59 11:59 11:59 Intake Total 542 Balance 542 Weight 92.5 kg Laboratory Results (Last 24 hours) 05/15/17 05/15/17 05/15/17 Unknown 11:32 11:08 WBC RBC Hgb Hct MCV MCH MCHC RDW Plt Count MPV Gran % Lymphocytes % Monocytes % Eosinophils % Basophils % Basophils # Sodium 142 Potassium 3.4 L Chloride 105 Carbon Dioxide 26.0 Anion Gap 14.3 BUN 5 L Creatinine 0.83 Estimated GFR > 60 Glucose 96 Calcium 7.1 L Magnesium 1.5 L Total Bilirubin 0.70 AST 221 H ALT 128 H Alkaline Phosphatase 109 Serum Total Protein 6.5 Albumin 2.9 L Salicylates Urine Opiates Level NEG. Ur Methadone NEG. Acetaminophen Urine Barbiturates NEG. Ur Phencyclidine (PCP) NEG. Urine Amphetamine NEG. U Benzodiazepine Level NEG. Urine Cocaine NEG. Urine Marijuana (THC) NEG. Ethyl Alcohol 05/14/17 05/14/17 05/14/17 00:44 00:44 00:44 WBC RBC Hgb Hct MCV MCH MCHC RDW Plt Count MPV Gran % Lymphocytes % Monocytes % Eosinophils % Basophils % Basophils # Sodium 143 Potassium 3.5 Chloride 104 Carbon Dioxide 23.9 Anion Gap 18.4 H BUN 6 L Creatinine 0.97 Estimated GFR > 60 Glucose 100 Calcium 7.5 L Magnesium 1.4 L Total Bilirubin 0.50 AST 276 H ALT 153 H Alkaline Phosphatase 127 H Serum Total Protein 7.7 Albumin 3.4 Salicylates < 2.8 L Urine Opiates Level Ur Methadone Acetaminophen < 2.0 L Urine Barbiturates Ur Phencyclidine (PCP) Urine Amphetamine U Benzodiazepine Level Urine Cocaine Urine Marijuana (THC) Ethyl Alcohol 0.382 H* 05/14/17 00:44 WBC 3.8 L RBC 4.78 Hgb 15.1 Hct 44.8 MCV 93.7 MCH 31.6 MCHC 33.7 RDW 16.8 H Plt Count 118 L MPV 9.7 H Gran % 46.3 Lymphocytes % 44.1 H Monocytes % 8.2 Eosinophils % 1.1 Basophils % 0.3 Basophils # 0.01 Sodium Potassium Chloride Carbon Dioxide Anion Gap BUN Creatinine Estimated GFR Glucose Calcium Magnesium Total Bilirubin AST ALT Alkaline Phosphatase Serum Total Protein Albumin Salicylates Urine Opiates Level Ur Methadone Acetaminophen Urine Barbiturates Ur Phencyclidine (PCP) Urine Amphetamine U Benzodiazepine Level Urine Cocaine Urine Marijuana (THC) Ethyl Alcohol Orders (Last 24 hours) Category Date Time Status Bedrest with BRP/BSC TOLERATED Activity 05/15/17 02:04 Active Admission/Status Order ROUTINE Care 05/15/17 02:04 Active 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 ROUTINE Care 05/15/17 02:06 Inactive Clean Catch Urine Specimen STAT Care 05/14/17 23:45 Inactive EKG-ER Only STAT Care 05/14/17 23:45 Completed IV Insertion ROUTINE Care 05/15/17 02:04 Inactive IV Insertion STAT Care 05/14/17 23:45 Completed Implement Pneumonia Pathway ROUTINE Care 05/15/17 02:04 Inactive Vital Signs .[id number],q3omx2,q1hx2,[id number] Care 05/15/17 02:04 Inactive Server Assistant/Discharge Plan ROUTINE Cons 05/15/17 03:03 Active Tele-Health Consult ROUTINE Cons 05/15/17 02:12 Active Regular Diet Diet 05/15/17 Breakfast Active Discharge Routine Discharge 05/15/17 Ordered Discharge/Telephone Order Routine Discharge 05/15/17 Active HEAD WITHOUT CONTRAST [CT] Stat Exams 05/14/17 23:45 Completed CMP Routine Lab 05/15/17 11:32 Completed MAG [MAGNESIUM] Urgent Lab 05/15/17 11:08 Completed Urine Triage Profile Stat Lab 05/15/17 Completed Aripiprazole 10 mg [Abilify 10 MG] Med 05/15/17 10:00 Active 10 mg PO DAILY Aspirin EC 81 mg [Ecotrin 81 mg] Med 05/15/17 10:00 Active 81 mg PO DAILY Flu Vac Qs 17-18(4Yr Up)Asha/Pf [Flucelvax Quad 2017- Med 05/16/17 08:15 Once 2018 Syr] 60 mcg IM .ONCE ONE Fluoxetine HCl 20 mg [Prozac 20 MG] Med 05/15/17 10:00 Active 40 mg PO DAILY Lisinopril 20 mg [Zestril 20 MG] Med 05/15/17 10:00 Active 20 mg PO DAILY Lorazepam 2 mg/1 ml [Ativan 2 MG/1 ML VIAL] Med 05/15/17 08:00 Active 0 mg IV PRN PRN Lorazepam 2 mg/1 ml [Ativan 2 MG/1 ML VIAL] Med 05/15/17 02:09 Discontinued 1 mg IV PRN PRN Magnesium Sulfate 1 gm/100 ml* [Magnesium 1 Gm / 100 Ml Med 05/15/17 01:41 Discontinued D5W] 100 ml IV STAT Magnesium Sulfate 1 gm/100 ml* [Magnesium 1 Gm / 100 Ml Med 05/15/17 01:48 Discontinued D5W] 100 ml IV UD Metoprolol Tartrate 25 mg [Lopressor 25MG Tab] Med 05/15/17 10:00 Active 25 mg PO BID NaCl 0.9% 1000 ml [Sodium Chloride 0.9% 1000 ML] 1,000 Med 05/15/17 00:14 Discontinued ml .ROUTE UD NaCl 0.9% 1000 ml [Sodium Chloride 0.9% 1000 ML] 1,000 Med 05/15/17 01:57 Discontinued ml .ROUTE UD NaCl 0.9% 1000 ml [Sodium Chloride 0.9% 1000 ML] 1,000 Med 05/15/17 08:00 Active ml IV 100 mls/hr NaCl 0.9% 1000 ml [Sodium Chloride 0.9% 1000 ML] 1,000 Med 05/14/17 23:45 Discontinued ml IV 999 mls/hr NaCl 0.9% 1000 ml [Sodium Chloride 0.9% 1000 ML] 1,000 Med 05/15/17 01:52 Discontinued ml IV 999 mls/hr Ondansetron HCl 4 mg/2 ml [Zofran 4 MG/2 ML VIAL] Med 05/15/17 02:02 Discontinued 4 mg .ROUTE .STK-MED ONE Ondansetron HCl 4 mg/2 ml [Zofran 4 MG/2 ML VIAL] Med 05/15/17 02:07 Active 4 mg IV Q4HPRN PRN Ondansetron HCl 4 mg/2 ml [Zofran 4 MG/2 ML VIAL] Med 05/15/17 02:00 Discontinued 4 mg IV STAT ONE Respiratory Therapy Consult ROUTINE RT 05/15/17 02:04 Completed Smoking Cessation Education ONCE RT 05/15/17 03:03 Completed Transfer Order Routine Transfer 05/15/17 Completed Patient Care Notes (Last 24 hours) 05/15/17 12:19 Nursing Note by Cally Medina [facility] called and notified of cancelled consult since pt is going in pt at [facility]. Report called to Marina at [facility] in pt. psych. Transport notified of BLS transport. Initialized on 05/15/17 12:19 - END OF NOTE 05/15/17 11:12 Nursing Note by Cally Medina from [facility] called to report someone from the [place] office will be over to do a face to face consult about 1400 Initialized on 05/15/17 11:12 - END OF NOTE 05/15/17 10:49 Nursing Note by Cally Medina [facility] called to say they received our fax. They do not have anyone there today that can perform tele consult. Staff from the [place] office will come over at some point today to do a face to face. Initialized on 05/15/17 10:49 - END OF NOTE 05/15/17 10:23 Nursing Note by Cally Medina [facility] packet faxed at this time. Initialized on 05/15/17 10:23 - END OF NOTE - Vitals & Intake/Output Vital Signs: Vital Signs Temperature 98 F 01/22/18 12:22 Pulse Rate 87 05/15/17 12:22 Respiratory Rate 18 05/15/17 12:22 Blood Pressure 114/58 05/15/17 12:22 O2 Sat by Pulse Oximetry 90 L 05/15/17 12:22 Intake & Output: Intake & Output 05/13/17 05/14/17 05/15/17 05/16/17 11:59 11:59 11:59 11:59 Intake Total 542 Balance 542 Weight 92.5 kg - Lab Result Diagrams: 05/14/17 00:44 05/15/17 11:32 Lab Results-Last 24 Hrs: Lab Results-Last 24 Hours 05/15/17 05/15/17 05/15/17 Range/Units 11:08 11:32 Unknown Sodium 142 (136-145) mEq/L Potassium 3.4 L (3.5-5.1) mEq/L Chloride 105 (98-107) mEq/L Carbon Dioxide 26.0 (21-32) mEq/L Anion Gap 14.3 (5-15) MEQ/L BUN 5 L (9-20) mg/dL Creatinine 0.83 (0.55-1.30) mg/dl Estimated GFR > 60 ML/MIN Glucose 96 (70-110) MG/DL Calcium 7.1 L (8.5-10.1) mg/dL Magnesium 1.5 L (1.8-2.4) mg/dL Total Bilirubin 0.70 (0.2-1.0) mg/dL AST 221 H (15-37) U/L ALT 128 H (12-78) U/L Alkaline Phosphatase 109 (46-116) U/L Serum Total Protein 6.5 (6.4-8.2) gm/dL Albumin 2.9 L (3.4-5.0) g/dL Urine Opiates Level NEG. (NEGATIVE) Ur Methadone NEG. (NEGATIVE) Urine Barbiturates NEG. (NEGATIVE) Ur Phencyclidine (PCP) NEG. (NEGATIVE) Urine Amphetamine NEG. (NEGATIVE) U Benzodiazepine Level NEG. (NEGATIVE) Urine Cocaine NEG. (NEGATIVE) Urine Marijuana (THC) NEG. (NEGATIVE) - Procedures and Test Procedures and Tests throughout Hospitalization: Therapy Orders & Screens 05/15/17 02:04 Respiratory Therapy Consult ROUTINE Comment: Reason For Exam: Diagnosis: Pneumonia 05/15/17 03:03 Smoking Cessation Education ONCE Comment: Diagnosis: alcohol intoxication, hypomagnesium, depression Smoking Status: Current every day smoker How long have you smoked: 10 years Have you smoked in the past 12 months: Yes Approximately how many cigarettes per day: 10 Do you dip or chew tobacco: Yes - Discharge Discharge Date: 05/15/17 Disposition: XFER OTHER Condition: Stable Prescriptions: No Action Aspirin EC 81 mg [Ecotrin 81 mg] 81 mg PO DAILY #30 tablet.ec Hydrochlorothiazide 25 mg [hydroDIURIL 25 MG] 25 mg PO DAILY #30 tablet Lisinopril 20 mg [Zestril 20 MG] 20 mg PO DAILY #30 tablet Escitalopram Oxalate [Lexapro] 20 mg PO DAILY Follow up with: BRIANNA AUSTIN [ACTIVE STAFF] - Forms: Ambulance Transport Record, Transfer Record Inter-Agency
[2017-05-16] MEDS ORDERED: FLUCELVAX QUAD 2017-2018 SYR IM ONE (08:15)
== END 2017-05-15 14:42 ==
LOC: ED 23:10 → ICU 05-15 02:30
PROVIDERS: ADMIT General Practice; ATTEND General Practice
DX: R46.89 Other symptoms and signs involving appearance and behavior (principal); F10.232 Alcohol dependence with withdrawal with perceptual disturbance; F10.239 Alcohol dependence with withdrawal, unspecified; E83.42 Hypomagnesemia; F19.90 Other psychoactive substance use, unspecified, uncomplicated; F32.9 Major depressive disorder, single episode, unspecified; Z72.0 Tobacco use; Z79.899 Other long term (current) drug therapy
CPT/HCPCS: 36000; 36415; 70450; 80053; 80307; 83735; 85025; 93005; 96360; 96361; 96374; 99284; G0378; G0481; J2060; J2405; J3475; A9270-GY

== ENCOUNTER 2018-02-10 01:41 | Observation (INO) | payer OTHER ==
[2018-02-10] MEDS ORDERED: Ativan 2 MG/1 ML VIAL IV ONE ×2 (02:15→05:12)
[2018-02-10] MEDS ORDERED: Zofran 4 MG/2 ML VIAL IV ONE (02:15)
--- NOTE | 2018-02-10 02:15 | ERPHSYRPT ---
- History of Present Illness Time Seen by Provider: 02/10/18 02:07 Source: patient, EMS Exam Limitations: no limitations Patient Subjective Stated Complaint: pt is alert and oriented. pt is ambulatory with a steady gait. pt comes in with c/o anxiety after of his father on the . pt is visibly shaking. pt states he has been drinking a large amount of alcohol since his father on Jan.24, his last drink was 02/09/18 before noon. pt is tachycardic, hypertensive, visibly anxious, and visibly shaking. Triage Nursing Assessment: see above Physician History: The patient is a 42-year-old male brought in by ambulance from home where he complains he has been drinking heavily every day since his father on January 24, 2018. He hasn't had any thing to eat in a week. Every day he gets up and drinks large amounts of alcohol. He has a history of alcoholism. He hasn't taken any of his meds in 2 months. Tonight he wants to stay in the hospital to "dry out" and then he will work on his psychiatric issues. He is has suicidal thoughts but knows he would never hurt himself. He has never tried to hurt himself in the past. His past medical history significant for schizoaffective disorder, hypertension, bipolar disorder, and alcohol abuse. Timing/Duration: week(s) (1), gradual onset, worse Severity of Symptoms-Max: severe Severity of Symptoms-Current: severe Context related to: parent, recent Suicidal thoughts: other (no plan) Associated Symptoms: depressed, suicidal ideation Previous symptoms: same symptoms as today Allergies/Adverse Reactions: No Known Drug Allergies Allergy (Verified 05/14/17 23:52) Home Medications: Prazosin HCl [Minipress] 1 mg PO DAILY 02/10/18 [History] risperiDONE [Risperdal] 1 mg PO 02/10/18 [History] Hx Tetanus, Diphtheria Vaccination/Date Given: Yes Hx Influenza Vaccination/Date Given: Yes Hx Pneumococcal Vaccination/Date Given: No Immunizations Up to Date: Yes - Past Medical History Pertinent Past Medical History: Yes Neurological History: Migraines, Seizures ENT History: No Pertinent History Cardiac History: Angina, Hypertension, Other Respiratory History: Sleep Apnea Endocrine Medical History: No Pertinent History Musculoskeletal History: Fractures GI Medical History: Pancreatitis History: No Pertinent History Psycho-Social History: Attention Deficit Disorder, Depression, Eating Disorders , Panic Disorder, Other Male Reproductive Disorders: No Pertinent History Other Medical History: Seizure - Past Surgical History Past Surgical History: No Neuro Surgical History: No Pertinent History Cardiac: No Pertinent History Respiratory: No Pertinent History Gastrointestinal: No Pertinent History Genitourinary: No Pertinent History Musculoskeletal: No Pertinent History Male Surgical History: No Pertinent History - Social History Smoking Status: Current every day smoker How long have you smoked: 15 years Exposure to second hand smoke: Yes Drug Use: narcotics Patient Lives Alone: No - Review of Systems Constitutional: No Fever, No Chills Eyes: No Symptoms Ears, Nose, & Throat: No Symptoms Respiratory: No Cough, No Dyspnea Cardiac: No Chest Pain, No Edema, No Syncope Abdominal/Gastrointestinal: No Abdominal Pain, No Nausea, No Vomiting, No Diarrhea Genitourinary Symptoms: No Dysuria Musculoskeletal: No Back Pain, No Neck Pain Skin: No Rash Neurological: No Dizziness, No Focal Weakness, No Sensory Changes Psychological: Alcohol Abuse, Depression, Suicidal Ideations Endocrine: No Symptoms Hematologic/Lymphatic: No Symptoms Immunological/Allergic: No Symptoms All Other Systems: Reviewed and Negative - Nursing Vital Signs Nursing Vital Signs: Initial Vital Signs Pulse Rate 131 H 02/10/18 01:44 Respiratory Rate 36 H 02/10/18 01:44 Blood Pressure 134/107 02/10/18 01:44 O2 Sat by Pulse Oximetry 97 02/10/18 01:44 Pain Scale Pain Intensity 2 - Physical Exam General Appearance: moderate distress Eyes, Ears, Nose, Throat Exam: dry mucous membranes Neck Exam: normal inspection, non-tender, supple Respiratory Exam: normal breath sounds, lungs clear, No respiratory distress Cardiovascular Exam: regular rate/rhythm, No edema Gastrointestinal/Abdominal Exam: soft, No tenderness, No distention Extremities Exam: normal inspection, normal range of motion, No evidence of injury, No edema Current Suicidality: denies suicide plan, No has suicide plan Neurological Exam: 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, 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, oriented x 3, anxious Appearance: appropriate insight, disheveled Behavior/Eye Contact/Speech: alert & cooperative, cooperative, good eye contact , normal speech Thoughts/Hallucinations: normal thought pattern Skin Exam: diaphoresis SpO2 Interpretation: normal SpO2: 97 Oxygen Delivery: Room Air - Course EKG Interpreted by Me: RATE, Sinus Tach, NORMAL AXIS, NORMAL INTERVALS, NORMAL QRS, NORMAL ST-T, Other (no change comp to EKG from 05/15/17.) Ordered Tests: Active Orders 24 hr Category Date Time Status Cylinder Checker STAT Care 02/10/18 02:16 Active Clean Catch Urine Specimen STAT Care 02/10/18 02:15 Active EKG-ER Only STAT Care 02/10/18 02:15 Active IV Insertion STAT Care 02/10/18 02:15 Active ACETAMINOPHEN Stat Lab 02/10/18 02:49 Completed BLOOD CULTURE Stat Lab 02/10/18 02:49 Received CBC W DIFF Stat Lab 02/10/18 02:49 Completed CMP Stat Lab 02/10/18 02:49 Completed ETHYL ALCOHOL Stat Lab 02/10/18 02:49 Completed SALICYLATE Stat Lab 02/10/18 02:49 Completed UA W/RFX UR CULTURE Stat Lab 02/10/18 02:15 Uncollected Urine Triage Profile Stat Lab 02/10/18 02:16 Uncollected Medication Summary Generic Name Dose Route Start Last Admin Trade Name Freq PRN Reason Stop Dose Admin Sodium Chloride 1,000 mls @ 999 mls/hr 02/10/18 05:17 02/10/18 05:22 Sodium Chloride 0.9% 1000 Ml IV 02/10/18 06:17 999 mls/hr .Q1H1M STA Administration Discontinued Medications Generic Name Dose Route Start Last Admin Trade Name Freq PRN Reason Stop Dose Admin Sodium Chloride 1,000 mls @ 999 mls/hr 02/10/18 02:32 02/10/18 03:45 Sodium Chloride 0.9% 1000 Ml IV 02/10/18 03:32 999 mls/hr .Q1H1M STA Administration Sodium Chloride Confirm 02/10/18 02:47 Sodium Chloride 0.9% 1000 Ml Administered 02/10/18 02:48 Dose 1,000 mls @ ud .ROUTE .STK-MED ONE Sodium Chloride Confirm 02/10/18 05:21 Sodium Chloride 0.9% 1000 Ml Administered 02/10/18 05:22 Dose 1,000 mls @ ud .ROUTE .STK-MED ONE Lorazepam 2 mg 02/10/18 02:15 02/10/18 02:28 Ativan 2 Mg/1 Ml Vial IV 02/10/18 02:16 2 mg STAT ONE Administration Lorazepam Confirm 02/10/18 02:22 Ativan 2 Mg/1 Ml Vial Administered 02/10/18 02:23 Dose 2 mg .ROUTE .STK-MED ONE Lorazepam 2 mg 02/10/18 05:12 02/10/18 05:22 Ativan 2 Mg/1 Ml Vial IV 02/10/18 05:13 2 mg STAT ONE Administration Lorazepam Confirm 02/10/18 05:21 Ativan 2 Mg/1 Ml Vial Administered 02/10/18 05:22 Dose 2 mg .ROUTE .STK-MED ONE Ondansetron HCl 4 mg 02/10/18 02:15 02/10/18 02:29 Zofran 4 Mg/2 Ml Vial IV 02/10/18 02:16 4 mg STAT ONE Administration Ondansetron HCl Confirm 02/10/18 02:22 Zofran 4 Mg/2 Ml Vial Administered 02/10/18 02:23 Dose 4 mg .ROUTE .STK-MED ONE Thiamine HCl 100 mg 02/10/18 02:32 02/10/18 03:04 Thiamine 200 Mg/2 Ml IV 02/10/18 02:33 100 mg STAT ONE Administration Thiamine HCl Confirm 02/10/18 02:47 Thiamine 200 Mg/2 Ml Administered 02/10/18 02:48 Dose 200 mg .ROUTE .STK-MED ONE Lab/Rad Data: Laboratory Result Diagrams 02/10/18 02:49 02/10/18 02:49 Laboratory Results 02/10/18 02/10/18 Range/Units 02:49 02:49 WBC 8.5 (4.0-10.5) K/mm3 RBC 5.14 (4.1-5.6) M/mm3 Hgb 16.0 (12.5-18.0) gm/dl Hct 46.6 (42-50) % MCV 90.7 (78-100) fl MCH 31.1 (26-32) pg MCHC 34.3 (32-36) g/dl RDW 14.7 H (11.5-14.0) % Plt Count 145 L (150-450) K/mm3 MPV 10.3 H (6-9.5) fl Gran % 81.3 H (36.0-66.0) % Eos # (Auto) 0 (0-0.5) Absolute Lymphs (auto) 1.18 (1.0-4.6) Absolute Monos (auto) 0.41 (0.0-1.3) Lymphocytes % 13.8 L (24.0-44.0) % Monocytes % 4.8 (0.0-12.0) % Eosinophils % 0.0 (0.00-5.0) % Basophils % 0.1 (0.0-0.4) % Absolute Granulocytes 6.93 H (1.4-6.9) Basophils # 0.01 (0-0.4) Sodium 140 (137-145) mmol/L Potassium 4.1 (3.5-5.1) mmol/L Chloride 101 (98-107) mmol/L Carbon Dioxide 17 L (22-30) mmol/L Anion Gap 25.2 H (5-15) MEQ/L BUN 7 L (9-20) mg/dL Creatinine 0.83 (0.66-1.25) mg/dL Estimated GFR > 60.0 ML/MIN Glucose 95 (74-106) mg/dL Calcium 9.1 (8.4-10.2) mg/dL Total Bilirubin 0.80 (0.2-1.3) mg/dL AST 84 H (17-59) U/L ALT 65 H (0-50) U/L Alkaline Phosphatase 135 H (38-126) U/L Serum Total Protein 7.9 (6.3-8.2) g/dL Albumin 4.6 (3.5-5.0) g/dL Salicylates < 1.0 L (2-20) mg/dL Acetaminophen < 10 L (10-30) ug/ml Ethyl Alcohol 106 H (0-10) mg/dL - Progress Progress: improved Discussed with : Russell Duque Will see patient in: hospital (observation) Counseled pt/family regarding: lab results, diagnosis - Departure Time of Disposition: 06:03 Departure Disposition: Observation (per Dr Bridgette Duque) Clinical Impression: Alcohol abuse Condition: Stable Critical Care Time: No Referrals: DOCTOR,NO FAMILY [Primary Care Provider] -
[2018-02-10] MEDS ORDERED: Zofran 4 MG/2 ML VIAL ONE (02:22)
[2018-02-10] MEDS ORDERED: Ativan 2 MG/1 ML VIAL ONE ×2 (02:22→05:21)
[2018-02-10] MEDS ORDERED: Sodium Chloride 0.9% 1000 ML 1,000 ML IV STA ×2 (02:32→05:17)
[2018-02-10] MEDS ORDERED: THIAMINE 200 MG/2 ML IV ONE (02:32)
[2018-02-10] MEDS ORDERED: Sodium Chloride 0.9% 1000 ML 1,000 ML ONE ×2 (02:47→05:21)
[2018-02-10] MEDS ORDERED: THIAMINE 200 MG/2 ML ONE (02:47)
[2018-02-10 02:52] LABS: BASOPHIL % 0.1 % (0.0-0.4); Basophil (Absolute #) 0.01 (0-0.4); Eosinophil (Absolute #) 0 (0-0.5); Granulocyte Absolute (ANC) 6.93 (1.4-6.9); Granulocytes % 81.3 % (36.0-66.0); Hematocrit 46.6 % (42-50); Lymphocyte (Absolute #) 1.18 (1.0-4.6); Lymphocytes % 13.8 % (24.0-44.0); Mean Cell Volume 90.7 fl (78-100); Mean Corpuscular Hemoglobin 31.1 pg (26-32); Mean Corpuscular Hgb Concent. 34.3 g/dl (32-36); Mean Platelet Volume 10.3 fl (6-9.5); Monocyte (Absolute #) 0.41 (0.0-1.3); Monocytes % 4.8 % (0.0-12.0); Platelet Count 145 K/mm3 (150-450); Red Blood Count 5.14 M/mm3 (4.1-5.6); Red Cell Distribution Width 14.7 % (11.5-14.0); White Blood Count 8.5 K/mm3 (4.0-10.5)
[2018-02-10 03:09] LABS: ALBUMIN 4.6 g/dL (3.5-5.0); ALKALINE PHOSPHATASE 135 U/L (38-126); ANION GAP 25.2 MEQ/L (5-15); BLOOD UREA NITROGEN 7 mg/dL (9-20); CHLORIDE 101 mmol/L (98-107); Calcium 9.1 mg/dL (8.4-10.2); Carbon Dioxide 17 mmol/L (22-30); Creatinine 1 0.83 mg/dL (0.66-1.25); ETHYL ALCOHOL 106 mg/dL (0-10); Glucose 95 mg/dL (74-106); Potassium 4.1 mmol/L (3.5-5.1); SGOT/AST 84 U/L (17-59); SGPT/ALT 65 U/L (0-50); SODIUM 140 mmol/L (137-145); Total Protein 7.9 g/dL (6.3-8.2)
[2018-02-10 03:10] LABS: ACETAMINOPHEN < 10 ug/ml (10-30); SALICYLATE < 1.0 mg/dL (2-20)
[2018-02-10] MEDS ORDERED: Zofran 4 MG/2 ML VIAL IV PRN (06:29)
[2018-02-10] MEDS: Sodium Chloride 0.9% 1000 ML 1,000 ML IV SCH ×2 (06:46→16:08)
[2018-02-10] MEDS: Ativan 2 MG/1 ML VIAL IV PRN ×4 (08:11→21:44)
[2018-02-10 11:12] LABS: Appearance CLEAR (CLEAR); Bilirubin NEGATIVE (NEGATIVE); Blood NEGATIVE Ery/ul (0-5); Glucose NEGATIVE (NEGATIVE); Ketones MODERATE (NEGATIVE); Leukocyte Esterase NEGATIVE (NEGATIVE); Nitrite NEGATIVE (NEGATIVE); Protein,Urine Dip 30 (Negative); Specific Gravity 1.021 (1.005-1.025); Urobilinogen 2 mg/dL (0-1)
[2018-02-10 11:23] LABS: Amphetamine,Urine NEGATIVE (NEGATIVE); Barbiturate,Urine NEGATIVE (NEGATIVE); Benzodiazepine,Urine NEGATIVE (NEGATIVE); Cocaine,Urine NEGATIVE (NEGATIVE); Methadone,Urine NEGATIVE (NEGATIVE); Opiate,Urine POSITIVE (NEGATIVE); PCP,Urine NEGATIVE (NEGATIVE); THC,Urine NEGATIVE (NEGATIVE)
[2018-02-10] MEDS ORDERED: THIAMINE IV SCH (12:00)
[2018-02-10] MEDS ORDERED: NACL IV SCH (12:00)
[2018-02-10] MEDS ORDERED: DEXTROSE 5% IV SCH (12:00)
[2018-02-10] MEDS: Risperdal 1 MG PO SCH (12:54)
[2018-02-10] MEDS ORDERED: Dextrose 5% -0.45 NaCl 1000 ML 1,000 ML IV ONE (17:28)
[2018-02-11] MEDS: Ativan 2 MG/1 ML VIAL IV PRN ×4 (00:18→12:10)
[2018-02-11] MEDS ORDERED: Dextrose 5% -0.45 NaCl 1000 ML 1,000 ML IV ONE (05:24)
[2018-02-11] MEDS ORDERED: ROCEPHIN 1 Gm-D5w 50 ml Bag** 1 G/50 ML IVPB IV SCH ×2 (06:35→22:00)
[2018-02-11 07:13] LABS: ALBUMIN 4.2 g/dL (3.5-5.0); ALKALINE PHOSPHATASE 109 U/L (38-126); ANION GAP 12.3 MEQ/L (5-15); BLOOD UREA NITROGEN 5 mg/dL (9-20); CHLORIDE 103 mmol/L (98-107); Calcium 8.9 mg/dL (8.4-10.2); Carbon Dioxide 27 mmol/L (22-30); Creatinine 1 0.72 mg/dL (0.66-1.25); Glucose 90 mg/dL (74-106); SGOT/AST 68 U/L (17-59); SGPT/ALT 53 U/L (0-50); SODIUM 138 mmol/L (137-145); Total Protein 7.5 g/dL (6.3-8.2)
[2018-02-11 07:37] LABS: Basophil (Absolute #) 0 (0-0.4); Eosinophil % 0.6 % (0.00-5.0); Eosinophil (Absolute #) 0.03 (0-0.5); Granulocyte Absolute (ANC) 2.97 (1.4-6.9); Granulocytes % 60.1 % (36.0-66.0); Hematocrit 40.2 % (42-50); Hemoglobin 13.5 gm/dl (12.5-18.0); Lymphocytes % 32.4 % (24.0-44.0); Mean Cell Volume 93.7 fl (78-100); Mean Corpuscular Hemoglobin 31.5 pg (26-32); Mean Corpuscular Hgb Concent. 33.6 g/dl (32-36); Mean Platelet Volume 10.8 fl (6-9.5); Monocyte (Absolute #) 0.34 (0.0-1.3); Monocytes % 6.9 % (0.0-12.0); Platelet Count 90 K/mm3 (150-450); Red Blood Count 4.29 M/mm3 (4.1-5.6); Red Cell Distribution Width 14.2 % (11.5-14.0); White Blood Count 4.9 K/mm3 (4.0-10.5)
[2018-02-11 07:43] LABS: Slide Review 1 YES
[2018-02-11] MEDS ORDERED: THERAGRAN MULTIVITAMIN PO SCH (10:00)
[2018-02-11] MEDS: Risperdal 1 MG PO SCH (11:13)
[2018-02-11 13:40] VITALS: BP 105/65; PULSE 112; O2SAT 97
--- NOTE | 2018-02-12 15:40 | HP ---
HISTORY OF PRESENT ILLNESS: The patient is a poor historian. History has been gathered from review of patient' chart and discussion with the emergency room physician/nursing staff. No family members were available. Fabricio De La Rosa is a 42 year old male with past medical history of alcohol abuse, hypertension, ADHD, anxiety, depression, pancreatitis, panic disorder, substance abuse. He presented to the emergency room early this morning with symptoms of anxiety after his father on 01/24/2018. The patient was visibly shaking and stated to the emergency room that he had been drinking a large amount of alcohol since his father on 01/24/2018. Reportedly the patient's last drink was on 02/09/2018 before noon. The patient was noted to be visibly anxious, shaking. Also reported to the emergency room that he has not had anything to eat in a week and stated that he had been drinking large amount of alcohol. He also stated that he has not had any of his medicine in two months. He stated to the emergency room that he wanted to stay in hospital to "dry out" and reported suicidal thoughts but stated that he would not hurt himself. The patient was noted to be hypertensive, tachycardic. Initial vitals in emergency room were blood pressure 134/107, heart rate 131, respiratory rate 36. Oxygen saturation of 97%. Alcohol level was 1.06. After initial work up he was treated with Zofran 4 mg IV x1, Ativan 2 mg IV x3, normal saline 1 liter IV x1. Subsequently he was admitted to medical floor. Since admission he was placed on PRN Ativan and as per patient's nurse, he has been requesting that routinely. Earlier, I advised the patient's nurse to place the patient on detox protocol per Ativan and requested psychiatric consultation. At the time of this evaluation the patient is drowsy but arousable. Complaining of feeling anxious, complained of headache. Appears comfortable. Appears feeling anxious. He states he was feeling suicidal and depressed yesterday. PAST MEDICAL HISTORY: As noted above. The patient also has history schizoaffective disorder, alcohol related seizures, bipolar disorder. PAST SURGICAL HISTORY: Noncontributory to current admission. ALLERGIES: NKDA. HOME MEDICATIONS: Minipress, Risperdal. However as noted earlier the patient has reportedly had not been taking those for a couple of months. SOCIAL HISTORY: The patient lives at home, active smoker, has history of methamphetamine and narcotic abuse. History of alcohol abuse. The patient has had previous admissions for alcohol abuse, previous admissions for similar reason. FAMILY HISTORY: The patient's father on 01/24/2018 as per reported history. REVIEW OF SYSTEMS: Somewhat limited since the patient is a poor historian. Complains of headache. Denies dizziness. Complains of fatigue. The patient was noted to be shaking yesterday. Denies chest pain, increased shortness of breath or cough. Denies abdominal pain. Complains of mild nausea. He states he had abdominal pain earlier. History of suicidal thoughts, depression. PHYSICAL EXAMINATION: A middle aged male lying comfortably in bed, not in acute distress. VITAL SIGNS: Blood pressure 135/84, heart rate 96, respiratory rate 18, temperature 98.2F. Oxygen saturation 97% on room air. HEENT: Normocephalic. No pallor or icterus is noted. NECK: No JVD is present. CVS: S1, S2 present. RESPIRATORY: Breath sounds bilaterally diminished and clear to auscultation. ABDOMEN: Obese, soft, nontender. NEURO: He is drowsy but easily arousable, answers simple questions, follows simple commands. Evaluation of motor strength in bilateral upper and lower extremities revealed 5/5 motor strength. EXTREMITIES: No edema on bilateral lower extremities. PSYCH: Brief psychiatric examination revealed the patient to be drowsy but arousable, cooperative on interview and examination. LABORATORY DATA AND TESTS: Labs from admission showed unremarkable CBC. CMP notable for bicarbonate of 17, AST 65, alkaline phosphatase 135. UA showed 0-2 white blood cells, no red blood cells, 3-5 hyaline cast, rare epithelial cells, rare bacteria, no leukocyte esterase. Salicylate level less than 1. Urine tox was positive for opiates. Serum acetaminophen level was less than 10. Ethanol alcohol level was 106. EKG showed sinus tachycardia, 103 beats/minute, no acute ST-T changes. ASSESSMENT: A 42 year old male with impression: 1) Alcohol intoxication. 2) History of alcohol abuse. 3) Suicidal ideation. 4) Anxiety disorder. 5) Hypertension. 6) Abnormal liver function test. 7) History of substance abuse. PLAN: The patient is admitted for further monitoring and management. Continue to monitor neurological status. Continue alcohol detox protocol with Ativan. Continue IV fluids, multivitamin, thiamine. Patient's home medications were restarted. Psychiatric consultation will be requested and awaited. Complete cessation of smoking, alcohol intake, illicit drug abuse was stressed with the patient. The plan was discussed with the patient. He verbalized his understanding and was discussed with patient's nurse, Sara who was present at the time of evaluation.
--- NOTE | 2018-02-13 14:11 | PROG NOTE ---
DATE: 02/11/2018 Chart is reviewed and events noted. PHYSICAL EXAMINATION: At the time of this evaluation the patient is alert, awake and comfortable. Complains of fatigue. Complains of anxiety. Complains of occasional headache. States he is not eating well. Appears comfortable. VITAL SIGNS: Blood pressure 162/101, heart rate 85, respiratory rate 18, temperature 98F. Oxygen saturation 95% on room air. HEENT: Pallor is present. No icterus is noted. NECK: No JVD is present. CVS: S1, S2 present. RESPIRATORY: Breath sounds are bilaterally diminished, clear to auscultation. ABDOMEN: Obese, soft, nontender. NEURO: He is alert, awake, answers simple questions, follows simple commands. EXTREMITIES: No edema on bilateral lower extremities. LABORATORY DATA AND TESTS: Labs from today show unremarkable CMP except BUN 5, creatinine 0.72. AST 68, ALT 53. CBC is unremarkable except PLT of 90,000. Blood cultures from 02/10/2018 show gram-positive cocci. Medications were reviewed. ASSESSMENT: A 42 year old male with impression: 1) Status post alcohol intoxication. 2) Alcohol abuse. 3) History of suicidal ideation. 4) Anxiety/Depression. 5) Hypertension. 6) Abnormal liver function test. 7) Thrombocytopenia. 8) History of pancreatitis. 9) Gram-positive bacteria. PLAN: Continue IV fluids, multivitamin, thiamine. Continue to monitor hemodynamic status. As per psychiatry, inpatient admission for detox was recommended. Case management likely obtaining transfer to [facility]. This has been discussed with the patient and the patient is agreeable with that. Will likely transfer patient there. In the meantime, the patient was placed on IV antibiotics pending blood culture results. Will await final ID on those blood cultures. In lieu of patient's symptoms of nausea and prior history of enteritis, will obtain lipase. The plan was discussed with the patient. He seems to be in understanding and agreement. Discussed with insurance case manager, Leigh.
--- NOTE | 2018-02-13 14:55 | DS ---
DISCHARGE DIAGNOSIS: 1) STATUS POST ALCOHOL INTOXICATION. 2) HISTORY OF ALCOHOL ABUSE. 3) ANXIETY/DEPRESSION. 4) HISTORY OF SUICIDAL IDEATION. 5) ABNORMAL LIVER FUNCTION TEST. 6) HYPERTENSION. 7) HISTORY OF PANCREATITIS. 8) GRAM-POSITIVE BACTEREMIA HOSPITAL COURSE: Fabricio De La Rosa is a 42 year-old male with past medical history of hypertension, history of alcohol abuse, anxiety/depression, prior history of pancreatitis, bipolar disorder, prior history of alcohol-related seizure. Reportedly, he had also been admitted previously for history of alcohol intoxication. Reportedly the patient's father on 01/24/2018 and he has been drinking alcohol daily. As per history that he provided to the emergency room, he has been drinking alcohol every day until he passes out. Also the patient had quit taking all of his medicines about two months ago and has not been eating anything for about a week or so. The patient presented to the emergency room on 02/10/2018 for the same. The patient was admitted to me as I was on service call yesterday. Upon arrival in the emergency room the patient was noted to be shaking and anxious. Please refer to my H&P for details. The patient was noted to be tachycardic, hypertensive. Lab work up was notable for abnormal liver function test, elevated alcohol level of 106. Reportedly the patient had requested desire to stay in the hospital to "stay dry". The patient was placed on IV fluids. Also he was placed on treatment with Ativan. The patient had felt very depressed and very low. After arrival to the medical floor the patient was restarted on his home medications of Minipress and Buspar. During his further course on medical floor as per patient's nursing staff, the patient did continue to ask for routine Ativan. The patient was placed on detox protocol with Ativan. He was placed on IV fluids, multivitamin, thiamine. Psychiatry consultation with [facility] was requested. The patient was evaluated and they recommended inpatient admission for detox. PHYSICAL EXAMINATION: Please review to my note from earlier today for details of physical examination. Earlier this morning I was contacted by patient's night nurse stating that the patient's blood cultures were positive. Given that the patient was started on IV antibiotics and routine labs were obtained. Those were unremarkable except thrombocytopenia and abnormal liver function test. At the time of my evaluation this afternoon blood cultures were identified as gram-positive cocci and the patient was continued on IV antibiotics. At the time of my evaluation this afternoon, I discussed with patient's onsite case manager, Leigh Ayon, who informed me that she had faxed patient's information to [facility] and the patient has been accepted for inpatient detox. Psychiatry has recommended for the patient to be transferred there for inpatient detox. They do have a male bed available and the patient has been accepted there and she has faxed the patient's information there and she is awaiting to hear from them. I discussed with her that the patient just did get started on IV antibiotics due to his preliminary blood culture results and to let me know as to what their decision was whether they would accept the patient today. A little while later I was contacted by Leigh stating that they have accepted the patient. I advised her that due to the patient just being started on IV antibiotics with above blood culture results and still not having ID on those, I would need to either discharge the patient to that facility on IV antibiotics or wait until tomorrow until we have definite identification on those to determine whether this is a contaminant or actual positive results to determine whether the patient needs to be on longer term IV antibiotics. Leigh stated that she will contact that facility and get back to me. Eventually Leigh contacted me later stating that the [facility] facility is able to hold the patient's bed for another 24 hours which would be tomorrow late afternoon pending the culture ID. Leigh also informed me that she has contacted [facility] and they would have preliminary ID regarding organism on blood culture result that will help determine whether this is a contaminant or actual positive culture and that will help us determine whether the patient needs to be continued on IV antibiotics in longer duration or can be safely discharged on p.o. antibiotics. I discussed with Leigh that Dr. Mason will be resuming the patient's care tomorrow, 02/12/2018 in the a.m. and I convey that to him. Once the culture results are available in the a.m., based on culture results can change the patient to p.o. antibiotics or if need be continue the patient on IV antibiotic and decision regarding transfer to other facility will be made after he assesses the patient tomorrow. I have informed Leigh during our phone call this evening. Leigh agreed with the same. Eventually I was contacted by [facility] floor this evening and I spoke initially with the secretory, Génesis, and then the patient's nurse, Sara, stating that all of a sudden this evening, the patient got himself dressed, removed his IV. Stated that he is not willing to stay here anymore. The plan of transfer of [facility] had been discussed with patient and the patient was agreeable with that. The patient stated that he insisted that he is leaving. The patient's nurse, Sara, stated that she would need to contact the patient's doctor (me) for me to be able to give any discharge order for AMA. However the patient was not even willing to wait for that and the patient left AMA anyway stating that he just needs to leave right away. Sara also stated that the patient gave inconsistent story as to where he was leaving for and there was no one to pick him up. Again, I was informed of the events regarding the patient leaving after the patient had already left the medical floor.
== END 2018-02-11 16:10 | disposition left against medical advice (07) ==
LOC: ED 01:41 → MED SURG 06:27
PROVIDERS: ADMIT General Practice; ATTEND General Practice
DX: F10.129 Alcohol abuse with intoxication, unspecified (principal); F10.10 Alcohol abuse, uncomplicated; F41.9 Anxiety disorder, unspecified; F32.9 Major depressive disorder, single episode, unspecified; R45.851 Suicidal ideations; R94.5 Abnormal results of liver function studies; I10 Essential (primary) hypertension; K86.1 Other chronic pancreatitis; R78.81 Bacteremia; F20.9 Schizophrenia, unspecified
CPT/HCPCS: 36000; 36415; 80053; 80307; 81001; 83690; 85025; 87040; 90791; 93005; 93041; 93268; 96360; 96361; 96372; 96374; 96375; 96376; 99285; G0481; J0696; J2060; J2405; Q3014; A9270-GY; G0378; G0480

== ENCOUNTER 2018-02-23 01:44 | Inpatient (IN) | payer OTHER ==
[2018-02-23] MEDS ORDERED: Sodium Chloride 0.9% 1000 ML 1,000 ML IV STA ×3 (02:00→03:14)
[2018-02-23] MEDS ORDERED: Sodium Chloride 0.9% 1000 ML 1,000 ML ONE ×3 (02:07→03:19)
[2018-02-23] MEDS ORDERED: THIAMINE 200 MG/2 ML IV ONE (02:10)
[2018-02-23] MEDS ORDERED: THIAMINE 200 MG/2 ML ONE (02:13)
--- NOTE | 2018-02-23 02:16 | ERPHSYRPT ---
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 stable Patient in no acute distress. I've discussed the patient's case with Dr. Bush she requested that we obtain a d-dimer on this patient Will plan to place on observation telemetry continued IV fluids continued Ativan as needed, psych consult. Will place on floor after d-dimer is available. 02/23/18 06:39 Unfortunately the patient's d-dimer is elevated at 554. I've discussed this with Dr. Bush she states she would like to have a CTA performed on this patient. 02/23/18 07:01 The patient's case was discussed with Dr. King he will be assuming care of this patient secondary to shift change. (CESIA MARS) 02/23/18 09:02 pt sx improving. cta negative for acute process. we notified Dr. Bush to be admitted. (VLAD KING) <CESIA MARS - Last Filed: 02/23/18 07:03> - Departure Time of Disposition: 09:03 Departure Disposition: Observation Critical Care Time: No <VLAD KING - Last Filed: 02/23/18 09:16> - Departure Clinical Impression: Alcohol withdrawal, Chest pain Condition: Stable Referrals: DOCTOR,NO FAMILY [Primary Care Provider] -
[2018-02-23] MEDS ORDERED: Ativan 2 MG/1 ML VIAL IV ONE ×4 (02:18→07:17)
[2018-02-23] MEDS ORDERED: Ativan 2 MG/1 ML VIAL ONE ×4 (02:23→07:24)
[2018-02-23 02:29] LABS: BASOPHIL % 0.3 % (0.0-0.4); Basophil (Absolute #) 0.01 (0-0.4); Eosinophil % 0.3 % (0.00-5.0); Eosinophil (Absolute #) 0.01 (0-0.5); Granulocyte Absolute (ANC) 1.68 (1.4-6.9); Granulocytes % 51.1 % (36.0-66.0); Hematocrit 44.9 % (42-50); Hemoglobin 15.3 gm/dl (12.5-18.0); Lymphocyte (Absolute #) 1.28 (1.0-4.6); Lymphocytes % 38.9 % (24.0-44.0); Mean Cell Volume 92.4 fl (78-100); Mean Corpuscular Hemoglobin 31.5 pg (26-32); Mean Corpuscular Hgb Concent. 34.1 g/dl (32-36); Mean Platelet Volume 10.4 fl (6-9.5); Monocyte (Absolute #) 0.31 (0.0-1.3); Monocytes % 9.4 % (0.0-12.0); Platelet Count 97 K/mm3 (150-450); Red Blood Count 4.86 M/mm3 (4.1-5.6); Red Cell Distribution Width 16.2 % (11.5-14.0); White Blood Count 3.3 K/mm3 (4.0-10.5)
[2018-02-23 02:47] LABS: ACETAMINOPHEN < 10 ug/ml (10-30); ALBUMIN 4.4 g/dL (3.5-5.0); ALKALINE PHOSPHATASE 141 U/L (38-126); AMYLASE 64 U/L (30-110); ANION GAP 24.3 MEQ/L (5-15); BLOOD UREA NITROGEN 6 mg/dL (9-20); CHLORIDE 101 mmol/L (98-107); Calcium 8.8 mg/dL (8.4-10.2); Carbon Dioxide 17 mmol/L (22-30); Creatinine 1 0.79 mg/dL (0.66-1.25); ETHYL ALCOHOL 177 mg/dL (0-10); Glucose 100 mg/dL (74-106); LIPASE 262 U/L (23-300); Potassium 3.7 mmol/L (3.5-5.1); SALICYLATE 2.4 mg/dL (2-20); SGOT/AST 240 U/L (17-59); SGPT/ALT 164 U/L (0-50); SODIUM 139 mmol/L (137-145); Total Protein 7.8 g/dL (6.3-8.2)
[2018-02-23 03:03] LABS: Lactic Acid 6.3 (0.4-2.0)
[2018-02-23] MEDS ORDERED: ROCEPHIN 1 Gm-D5w 50 ml Bag** 1 G/50 ML IVPB IV STA (03:15)
[2018-02-23] MEDS ORDERED: ROCEPHIN 1 Gm-D5w 50 ml Bag** 1 G/50 ML IVPB IV ONE (03:19)
[2018-02-23 03:44] LABS: PTT 26.8 SECONDS (24.1-36.1)
[2018-02-23 04:04] LABS: Slide Review 1 YES
[2018-02-23] MEDS ORDERED: Sodium Chloride 0.9% 1000 ML 1,000 ML IV SCH (04:30)
[2018-02-23 05:48] LABS: Lactic Acid 3.1 (0.4-2.0)
[2018-02-23 07:35] LABS: Appearance CLEAR (CLEAR); Bilirubin NEGATIVE (NEGATIVE); Blood SMALL Ery/ul (0-5); Glucose NEGATIVE (NEGATIVE); Ketones SMALL (NEGATIVE); Leukocyte Esterase NEGATIVE (NEGATIVE); Nitrite NEGATIVE (NEGATIVE); Protein,Urine Dip NEGATIVE (Negative); Specific Gravity 1.016 (1.005-1.025); Urobilinogen 2 mg/dL (0-1)
[2018-02-23 08:21] LABS: Lactic Acid 2.7 (0.4-2.0)
[2018-02-23 09:05] LABS: Amphetamine,Urine NEGATIVE (NEGATIVE); Barbiturate,Urine NEGATIVE (NEGATIVE); Benzodiazepine,Urine NEGATIVE (NEGATIVE); Cocaine,Urine NEGATIVE (NEGATIVE); Methadone,Urine NEGATIVE (NEGATIVE); Opiate,Urine NEGATIVE (NEGATIVE); PCP,Urine NEGATIVE (NEGATIVE); THC,Urine NEGATIVE (NEGATIVE)
--- NOTE | 2018-02-23 09:07 | XRAY ---
Indication: Chest pain. Comparison: December 17, 2016. Portable chest demonstrates normal heart, lungs, and bony thorax.
--- NOTE | 2018-02-23 09:09 | XRAY ---
Indication: Short of breath. Elevated d-dimer. Multiple contiguous axial images obtained through the chest using 100 cc Isovue 370 contrast and PE protocol. Comparison: None Satisfactory opacification of the pulmonary arteries to include the lobar and segmental branches. No filling defect or pulmonary embolus. Heart is not enlarged. Aorta is normal in course and caliber. No pathologic mediastinal/hilar lymphadenopathy. Lungs inflated without suspicious pulmonary mass, infiltrate, or effusion. Minimal right middle lobe and lingular fibrosis/scarring. Bony thorax intact. Limited upper abdomen demonstrates diffuse fatty liver. Impression: 1. Negative pulmonary embolus. No acute cardiopulmonary abnormalities. 2. Incidental fatty liver. CTDI 23.47
[2018-02-23] MEDS ORDERED: Ativan 2 MG/1 ML VIAL IV PRN (09:36)
[2018-02-23] MEDS ORDERED: TYLENOL 325 MG PO PRN (09:36)
[2018-02-23] MEDS ORDERED: Zofran 4 MG/2 ML VIAL IV PRN (09:36)
[2018-02-23] MEDS ORDERED: Vitamins For Infusion 10 ML INJECTION*** 10 ML, FOLNATE 5 MG/ML 10 ML VIAL** 1 MG, THIA... IV PRN ×4 (09:47)
[2018-02-23] MEDS ORDERED: FOLATE 1 MG PO SCH (10:00)
[2018-02-23] MEDS ORDERED: THERAGRAN MULTIVITAMIN PO SCH (10:00)
[2018-02-23] MEDS: Sodium Chloride 0.9% W/ 20 mEq KCl/LITER 1,000 ML IV SCH ×2 (10:03→21:07)
[2018-02-23] MEDS: Pepcid 20 MG VIAL IV SCH (10:11)
[2018-02-23] MEDS: Ativan 2 MG/1 ML VIAL IV PRN ×3 (11:45→19:53)
[2018-02-23 11:52] LABS: Lactic Acid 1.9 (0.4-2.0)
[2018-02-23] MEDS ORDERED: MOTRIN 600 MG PO PRN (12:37)
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
[2018-02-23] MEDS: Valium 5 MG PO SCH ×2 (17:32→22:00)
[2018-02-23] MEDS: NORVASC 5 MG PO SCH ×2 (17:32→22:00)
[2018-02-23] MEDS: Nicoderm CQ 21 MG TOP SCH (17:37)
[2018-02-23] MEDS ORDERED: ENOXAPARIN SODIUM SQ SCH (18:00)
[2018-02-23 18:33] LABS: VBG BASE EXCESS -0.9 (-2.0-2.0); VBG CARBOXYHEMOGLOBIN 4.6 % T HGB (0.0-6.9); VBG HEMOGLOBIN 14.2; VBG O2 SATURATION 74.5 (95-100); VBG POTASSIUM 3.6 (3.5-5.1); VBG pH 7.46 (7.32-7.42)
[2018-02-24] MEDS ORDERED: Lopressor 50 MG PO ONE (03:00)
[2018-02-24] MEDS: Ativan 2 MG/1 ML VIAL IV PRN ×9 (03:02→19:50)
[2018-02-24] MEDS: Sodium Chloride 0.9% W/ 20 mEq KCl/LITER 1,000 ML IV SCH ×2 (05:29→14:56)
[2018-02-24 05:44] LABS: BASOPHIL % 0.6 % (0.0-0.4); Basophil (Absolute #) 0.02 (0-0.4); Eosinophil % 1.6 % (0.00-5.0); Eosinophil (Absolute #) 0.05 (0-0.5); Granulocytes % 56.6 % (36.0-66.0); Hematocrit 42.4 % (42-50); Hemoglobin 14.1 gm/dl (12.5-18.0); Lymphocyte (Absolute #) 1.01 (1.0-4.6); Lymphocytes % 31.8 % (24.0-44.0); Mean Cell Volume 94.9 fl (78-100); Mean Corpuscular Hemoglobin 31.5 pg (26-32); Mean Corpuscular Hgb Concent. 33.3 g/dl (32-36); Mean Platelet Volume 11.6 fl (6-9.5); Monocytes % 9.4 % (0.0-12.0); Platelet Count 79 K/mm3 (150-450); Red Blood Count 4.47 M/mm3 (4.1-5.6); Red Cell Distribution Width 15.6 % (11.5-14.0); White Blood Count 3.2 K/mm3 (4.0-10.5)
[2018-02-24 06:07] LABS: ALBUMIN 4.1 g/dL (3.5-5.0); ALKALINE PHOSPHATASE 119 U/L (38-126); ANION GAP 15.1 MEQ/L (5-15); BLOOD UREA NITROGEN 4 mg/dL (9-20); CHLORIDE 102 mmol/L (98-107); Calcium 8.5 mg/dL (8.4-10.2); Carbon Dioxide 26 mmol/L (22-30); Creatinine 1 0.73 mg/dL (0.66-1.25); Glucose 91 mg/dL (74-106); Potassium 3.6 mmol/L (3.5-5.1); SGOT/AST 157 U/L (17-59); SGPT/ALT 136 U/L (0-50); SODIUM 139 mmol/L (137-145); Total Protein 7.3 g/dL (6.3-8.2)
[2018-02-24] MEDS: Valium 5 MG PO SCH ×3 (07:48→17:17)
[2018-02-24] MEDS: NORVASC 5 MG PO SCH ×2 (09:11→21:44)
[2018-02-24] MEDS: Pepcid 20 MG VIAL IV SCH (09:11)
[2018-02-24] MEDS ORDERED: FLUZONE QUAD (36mo-64yo) 2018-2019 SYRINGE IM ONE (10:00)
[2018-02-24] MEDS: Lopressor 50 MG PO SCH ×2 (11:47→21:44)
[2018-02-24] MEDS ORDERED: TYLENOL 325 MG PO PRN (11:56)
--- NOTE | 2018-02-24 12:14 | PCM.NOTE ---
Date and Time: 02/24/18 1209 Subjective Assessment: still shaking had nightmares lsat night. he is irritable and has been having copious diarrhea. no further chest pain. abdominal pain resolved Objective Exam General Appearance: no apparent distress, alert, obese Neurologic Exam: alert, oriented x 3, cooperative, depressed mood/affect, other (tremors of hands bilateral) Skin Exam: normal color, warm, dry Eye Exam: PERRL, EOMI, eyes nml inspection, No scleral icterus, No pale conjunctivae Ears, Nose, Throat Exam: normal ENT inspection, pharynx normal, moist mucous membranes Neck Exam: normal inspection, non-tender, supple, full range of motion Respiratory Exam: normal breath sounds, lungs clear, No respiratory distress Cardiovascular Exam: regular rate/rhythm, normal heart sounds Gastrointestinal/Abdomen Exam: soft, normal bowel sounds, No tenderness, No distention, No mass, No guarding Extremity Exam: normal inspection, normal range of motion OBJECTIVE DATA Vital Signs: Vital Signs - 24 hr Temp Pulse Resp BP Pulse Ox 02/24/18 12:00 83 02/24/18 09:00 98.5 F 84 20 140/97 02/24/18 08:00 77 02/24/18 05:00 98.5 F 109 H 18 145/94 93 L 02/24/18 02:16 98.4 F 85 18 158/104 93 L 02/24/18 00:00 87 97 02/23/18 22:00 98.3 F 71 16 159/107 97 02/23/18 20:00 98.2 F 96 H 16 164/102 96 02/23/18 17:00 98.4 F 69 19 150/96 96 02/23/18 15:10 98 02/23/18 14:52 95 02/23/18 12:55 98 F 88 20 168/80 96 Pain Assessment - Last Documented Pain Intensity 0 Pain Scale Used 0-10 Pain Scale Intake and Output: Intake & Output 02/22/18 02/23/18 02/24/18 02/25/18 11:59 11:59 11:59 10:59 Intake Total 2935 Output Total 4125 Balance -1190 Weight 99.1 kg 96.7 kg Lab Results: Lab Results-Last 24 Hours 02/23/18 02/23/18 02/23/18 Range/Units 03:45 03:45 11:37 WBC (4.0-10.5) K/mm3 RBC (4.1-5.6) M/mm3 Hgb (12.5-18.0) gm/dl Hct (42-50) % MCV (78-100) fl MCH (26-32) pg MCHC (32-36) g/dl RDW (11.5-14.0) % Plt Count (150-450) K/mm3 MPV (6-9.5) fl Gran % (36.0-66.0) % Eos # (Auto) (0-0.5) Absolute Lymphs (auto) (1.0-4.6) Absolute Monos (auto) (0.0-1.3) Lymphocytes % (24.0-44.0) % Monocytes % (0.0-12.0) % Eosinophils % (0.00-5.0) % Basophils % (0.0-0.4) % Absolute Granulocytes (1.4-6.9) Basophils # (0-0.4) Puncture Site Cancelled pCO2 Cancelled pO2 Cancelled pO2/FiO2 Ratio 21 % Base Excess Cancelled O2 Saturation Cancelled ABG pH Cancelled ABG HCO3 Cancelled ABG O2 Sat (Measured) Cancelled ABG O2 Content Cancelled Thuan Test Cancelled VBG pH 7.46 H (7.32-7.42) VBG pCO2 at Pat Temp 31 L (42-55) mm/Hg VBG pO2 at Pat Temp 38 (25-40) mm/Hg VBG HCO3 22 (22-28) meq/L VBG O2 Sat (Sean) 74.5 L (95-100) VBG Base Excess -0.9 (-2.0-2.0) VBG Hemoglobin 14.2 VBG Carboxyhemoglobin 4.6 (0.0-6.9) % T HGB A-a Gradient Cancelled a/A Ratio Cancelled Hemoglobin Cancelled Carboxyhemoglobin Cancelled Methemoglobin Cancelled Potassium Cancelled POC Potassium 3.6 (3.5-5.1) Temperature Cancelled POC O2 Flow Rate Cancelled Vent Mode Cancelled Vent Rate Cancelled Tidal Volume Cancelled PEEP Cancelled Pressure Support Cancelled Inspiratory BiPAP Cancelled Expiratory BiPAP Cancelled Sodium (137-145) mmol/L Chloride (98-107) mmol/L Carbon Dioxide Cancelled Anion Gap (5-15) MEQ/L BUN (9-20) mg/dL Creatinine (0.66-1.25) mg/dL Estimated GFR ML/MIN Glucose (74-106) mg/dL Calcium (8.4-10.2) mg/dL Total Bilirubin (0.2-1.3) mg/dL AST (17-59) U/L ALT (0-50) U/L Alkaline Phosphatase (38-126) U/L Troponin I 0.018 (0.000-0.034) ng/mL Serum Total Protein (6.3-8.2) g/dL Albumin (3.5-5.0) g/dL Salicylates (2-20) mg/dL 02/23/18 02/23/18 02/24/18 Range/Units 14:05 14:05 05:36 WBC 3.2 L (4.0-10.5) K/mm3 RBC 4.47 (4.1-5.6) M/mm3 Hgb 14.1 (12.5-18.0) gm/dl Hct 42.4 (42-50) % MCV 94.9 (78-100) fl MCH 31.5 (26-32) pg MCHC 33.3 (32-36) g/dl RDW 15.6 H (11.5-14.0) % Plt Count 79 L (150-450) K/mm3 MPV 11.6 H (6-9.5) fl Gran % 56.6 (36.0-66.0) % Eos # (Auto) 0.05 (0-0.5) Absolute Lymphs (auto) 1.01 (1.0-4.6) Absolute Monos (auto) 0.30 (0.0-1.3) Lymphocytes % 31.8 (24.0-44.0) % Monocytes % 9.4 (0.0-12.0) % Eosinophils % 1.6 (0.00-5.0) % Basophils % 0.6 (0.0-0.4) % Absolute Granulocytes 1.80 (1.4-6.9) Basophils # 0.02 (0-0.4) Puncture Site pCO2 pO2 pO2/FiO2 Ratio % Base Excess O2 Saturation ABG pH ABG HCO3 ABG O2 Sat (Measured) ABG O2 Content Thuan Test VBG pH (7.32-7.42) VBG pCO2 at Pat Temp (42-55) mm/Hg VBG pO2 at Pat Temp (25-40) mm/Hg VBG HCO3 (22-28) meq/L VBG O2 Sat (Sean) (95-100) VBG Base Excess (-2.0-2.0) VBG Hemoglobin VBG Carboxyhemoglobin (0.0-6.9) % T HGB A-a Gradient a/A Ratio Hemoglobin Carboxyhemoglobin Methemoglobin Potassium POC Potassium (3.5-5.1) Temperature POC O2 Flow Rate Vent Mode Vent Rate Tidal Volume PEEP Pressure Support Inspiratory BiPAP Expiratory BiPAP Sodium (137-145) mmol/L Chloride (98-107) mmol/L Carbon Dioxide Anion Gap (5-15) MEQ/L BUN (9-20) mg/dL Creatinine (0.66-1.25) mg/dL Estimated GFR ML/MIN Glucose (74-106) mg/dL Calcium (8.4-10.2) mg/dL Total Bilirubin (0.2-1.3) mg/dL AST (17-59) U/L ALT (0-50) U/L Alkaline Phosphatase (38-126) U/L Troponin I 0.017 (0.000-0.034) ng/mL Serum Total Protein (6.3-8.2) g/dL Albumin (3.5-5.0) g/dL Salicylates < 1.0 L (2-20) mg/dL 02/24/18 Range/Units 05:36 WBC (4.0-10.5) K/mm3 RBC (4.1-5.6) M/mm3 Hgb (12.5-18.0) gm/dl Hct (42-50) % MCV (78-100) fl MCH (26-32) pg MCHC (32-36) g/dl RDW (11.5-14.0) % Plt Count (150-450) K/mm3 MPV (6-9.5) fl Gran % (36.0-66.0) % Eos # (Auto) (0-0.5) Absolute Lymphs (auto) (1.0-4.6) Absolute Monos (auto) (0.0-1.3) Lymphocytes % (24.0-44.0) % Monocytes % (0.0-12.0) % Eosinophils % (0.00-5.0) % Basophils % (0.0-0.4) % Absolute Granulocytes (1.4-6.9) Basophils # (0-0.4) Puncture Site pCO2 pO2 pO2/FiO2 Ratio % Base Excess O2 Saturation ABG pH ABG HCO3 ABG O2 Sat (Measured) ABG O2 Content Thuan Test VBG pH (7.32-7.42) VBG pCO2 at Pat Temp (42-55) mm/Hg VBG pO2 at Pat Temp (25-40) mm/Hg VBG HCO3 (22-28) meq/L VBG O2 Sat (Sean) (95-100) VBG Base Excess (-2.0-2.0) VBG Hemoglobin VBG Carboxyhemoglobin (0.0-6.9) % T HGB A-a Gradient a/A Ratio Hemoglobin Carboxyhemoglobin Methemoglobin Potassium 3.6 POC Potassium (3.5-5.1) Temperature POC O2 Flow Rate Vent Mode Vent Rate Tidal Volume PEEP Pressure Support Inspiratory BiPAP Expiratory BiPAP Sodium 139 (137-145) mmol/L Chloride 102 (98-107) mmol/L Carbon Dioxide 26 Anion Gap 15.1 H (5-15) MEQ/L BUN 4 L (9-20) mg/dL Creatinine 0.73 (0.66-1.25) mg/dL Estimated GFR > 60.0 ML/MIN Glucose 91 (74-106) mg/dL Calcium 8.5 (8.4-10.2) mg/dL Total Bilirubin 1.20 (0.2-1.3) mg/dL AST 157 H (17-59) U/L ALT 136 H (0-50) U/L Alkaline Phosphatase 119 (38-126) U/L Troponin I (0.000-0.034) ng/mL Serum Total Protein 7.3 (6.3-8.2) g/dL Albumin 4.1 (3.5-5.0) g/dL Salicylates (2-20) mg/dL Radiology Exams: Radiology Procedures Category Date Time Status CHEST 1 VIEW (PORTABLE) Stat Exams 02/23/18 03:44 Completed CHEST WITH CONTRAST [CT] Stat Exams 02/23/18 06:38 Completed Multi-Disciplinary Progress Notes: Multi-Disciplinary Progress Notes 02/23/18 15:00 (created 02/23/18 15:22) Case Management Note by Leigh Ayon DISCHARGE PLAN REVIEWED, NORMALLY INDEPENDENT WITH ALL ADL'S. HX: ALCOHOLISM. DISCUSSED THAT HE WAS JUST HERE A FEW WEEKS AGO, AND THIS SALES AND DISTRIBUTION CLERK HAD ARRANGED FOR PT TO GO TO [facility] FOR TREATMENT OF ALCOHOLISM/ DEPRESSION. PT WAS AGREEABLE TO THIS PLAN, THEN THE AFTERNOON BEFORE HE WAS TO BE DISCHARGED TO [facility] HE SIGNED OUT OF HOSPITAL AMA. PT STATES, "I KNOW." STATES, "MY MOM NEEDED ME." REPORTS THAT HE WENT HOME AND STARTED DRINKING. REPORTS HE KNOWS HE NEEDS TO STOP DRINKING, SOMETIMES HE DOESN'T KNOW IF HE WANTS TO. DISCUSSED JAIL TREATMENT AND ILL EFFECTS OF ALCOHOL ABUSE ON HEALTH. VERBALIZED UNDERSTANDING, ABLE TO REPEAT INFORMATION BACK. WILL FOLLOW FOR DC NEEDS. Initialized on 02/23/18 15:22 - END OF NOTE Assessment/Plan (1) Alcohol withdrawal syndrome Current Visit: Yes Status: Acute Onset Date: ~02/23/18 Qualifiers: Complication of substance-induced condition: uncomplicated Qualified Code(s ): F10.230 - Alcohol dependence with withdrawal, uncomplicated Assessment & Plan: will work on weaning the benzo as tolerated he is currently on q6h valium with prn ativan as well He appears to have some decreased nutrition with the low wbc, thrombocytopena and low bun. He has received iv thiamine will add now po thiamine, b12 and folate check am mag having diarrhea likely withdraw symptom but he did have recent antibiotic exposure 2 weeks ago at a hospitalization will check c. diff if negative start immodium stop ibuprofen due to thrombocytopenia he is motivated to stop drinking and has discussed with psychiatric services and after acute withdrawal plans to try to get in with a sober living household in [place] Code(s): F10.239 - ALCOHOL DEPENDENCE WITH WITHDRAWAL, UNSPECIFIED (2) Alcoholic hepatitis Current Visit: Yes Status: Chronic Qualifiers: Ascites presence: without ascites Qualified Code(s): K70.10 - Alcoholic hepatitis without ascites Code(s): K70.10 - ALCOHOLIC HEPATITIS WITHOUT ASCITES (3) Fatty liver Current Visit: Yes Status: Acute Code(s): K76.0 - FATTY (CHANGE OF) LIVER, NOT ELSEWHERE CLASSIFIED (4) Thrombocytopenia Current Visit: Yes Status: Acute (5) Essential hypertension Current Visit: Yes Status: Chronic Code(s): I10 - ESSENTIAL (PRIMARY) HYPERTENSION
[2018-02-24] MEDS: Vitamin B-12 500 MCG PO SCH (12:40)
[2018-02-24] MEDS: FOLATE 1 MG PO SCH (12:44)
[2018-02-24] MEDS: Nicoderm CQ 21 MG TOP SCH (12:44)
[2018-02-24] MEDS: VITAMIN B-1 100 MG PO SCH (12:47)
[2018-02-24 14:42] LABS: 027 TOX PROD PRESUMPTIVE NEGATIVE (NEGATIVE); TOXIGENIC C. DIFF ORG NEGATIVE (NEGATIVE)
[2018-02-24] MEDS ORDERED: IMODIUM 2 MG PO ONE (14:46)
[2018-02-25] MEDS: Valium 5 MG PO SCH ×5 (00:06→22:15)
[2018-02-25] MEDS: Sodium Chloride 0.9% W/ 20 mEq KCl/LITER 1,000 ML IV SCH ×3 (00:07→19:57)
[2018-02-25 05:40] LABS: Hematocrit 41.6 % (42-50); Hemoglobin 13.9 gm/dl (12.5-18.0); Mean Cell Volume 95.4 fl (78-100); Mean Corpuscular Hemoglobin 31.9 pg (26-32); Mean Corpuscular Hgb Concent. 33.4 g/dl (32-36); Mean Platelet Volume 11.7 fl (6-9.5); Platelet Count 71 K/mm3 (150-450); Red Blood Count 4.36 M/mm3 (4.1-5.6); Red Cell Distribution Width 15.5 % (11.5-14.0); White Blood Count 3.6 K/mm3 (4.0-10.5)
[2018-02-25 05:41] LABS: BLOOD UREA NITROGEN 6 mg/dL (9-20); CHLORIDE 104 mmol/L (98-107); Calcium 8.9 mg/dL (8.4-10.2); Carbon Dioxide 25 mmol/L (22-30); Glucose 99 mg/dL (74-106); Potassium 4.1 mmol/L (3.5-5.1); SODIUM 137 mmol/L (137-145)
[2018-02-25] MEDS ORDERED: Ativan 2 MG/1 ML VIAL ONE (07:16)
[2018-02-25] MEDS: Ativan 2 MG/1 ML VIAL IV PRN ×6 (07:19→19:49)
[2018-02-25 08:09] LABS: Slide Review YES
[2018-02-25] MEDS: Pepcid 20 MG VIAL IV SCH (09:23)
[2018-02-25] MEDS: Lopressor 50 MG PO SCH ×2 (09:23→22:13)
[2018-02-25] MEDS: Vitamin B-12 500 MCG PO SCH (09:24)
[2018-02-25] MEDS: NORVASC 5 MG PO SCH ×2 (09:24→22:15)
[2018-02-25] MEDS: FOLATE 1 MG PO SCH (09:24)
[2018-02-25] MEDS: VITAMIN B-1 100 MG PO SCH (09:31)
[2018-02-25] MEDS ORDERED: Phenergan 25 MG INJ IV PRN (10:15)
[2018-02-25] MEDS ORDERED: IMODIUM 2 MG PO PRN (10:32)
--- NOTE | 2018-02-25 10:33 | PCM.NOTE ---
Date and Time: 02/25/18 1027 Subjective Assessment: he continues to have severe withdrawal symptoms with diarrhea, nausea, vomiting , tremors and periods of irritability and confusion this am. He is not currnetly having any hallucinations or delusions and no suicidal ideation. He continues to be motivated to quit drinking for good and has 2 places he is trying to get in when he has detoxed and is ready for discharge. He did go from 8pm to about 6 am without prn ativan but this am he was much worse confused, vomiting, shacking and diarrhea. Since a couple doses of ativan now he is improving some Objective Exam General Appearance: mild distress, anxiety, obese Neurologic Exam: alert, oriented x 3, cooperative, other (bilateral tremors of hands) Skin Exam: normal color, warm, dry Ears, Nose, Throat Exam: moist mucous membranes Neck Exam: non-tender, supple Respiratory Exam: rhonchi, No crackles/rales, No wheezing Cardiovascular Exam: regular rate/rhythm, normal heart sounds Gastrointestinal/Abdomen Exam: soft, normal bowel sounds, tenderness (mild diffuse tenderness), No distention Extremity Exam: normal inspection, No calf tenderness, No pedal edema OBJECTIVE DATA Vital Signs: Vital Signs - 24 hr Temp Pulse Resp BP Pulse Ox 02/25/18 08:00 97.9 F 80 20 152/102 97 02/25/18 03:00 98.4 F 65 97 H 120/81 18 L 02/25/18 00:00 97.7 F 70 96 H 142/90 18 L 02/24/18 21:43 77 12 134/97 98 02/24/18 20:00 98.1 F 68 16 134/94 96 02/24/18 15:55 97 F 71 18 135/96 96 02/24/18 15:52 71 02/24/18 13:00 73 18 140/100 96 02/24/18 12:00 83 Pain Assessment - Last Documented Pain Intensity 0 Pain Scale Used 0-10 Pain Scale Intake and Output: Intake & Output 02/22/18 02/23/18 02/24/18 02/25/18 11:59 11:59 11:59 10:59 Intake Total 2935 4300 Output Total 4125 1620 Balance -1190 2680 Weight 99.1 kg 96.7 kg 97.6 kg Lab Results: Lab Results-Last 24 Hours 02/24/18 02/25/18 02/25/18 Range/Units 13:24 05:15 05:15 WBC 3.6 L (4.0-10.5) K/mm3 RBC 4.36 (4.1-5.6) M/mm3 Hgb 13.9 (12.5-18.0) gm/dl Hct 41.6 L (42-50) % MCV 95.4 (78-100) fl MCH 31.9 (26-32) pg MCHC 33.4 (32-36) g/dl RDW 15.5 H (11.5-14.0) % Plt Count 71 L (150-450) K/mm3 MPV 11.7 H (6-9.5) fl Sodium (137-145) mmol/L Potassium (3.5-5.1) mmol/L Chloride (98-107) mmol/L Carbon Dioxide (22-30) mmol/L Anion Gap (5-15) MEQ/L BUN (9-20) mg/dL Creatinine (0.66-1.25) mg/dL Estimated GFR ML/MIN Glucose (74-106) mg/dL Calcium (8.4-10.2) mg/dL Magnesium 1.5 L (1.6-2.3) mg/dL Stl C. diff Tox B Gene NEGATIVE (NEGATIVE) C.difficile [id number]-[id number] PRESUMPTIVE NEGATIVE (NEGATIVE) Slides for Path Review YES 02/25/18 Range/Units 05:15 WBC (4.0-10.5) K/mm3 RBC (4.1-5.6) M/mm3 Hgb (12.5-18.0) gm/dl Hct (42-50) % MCV (78-100) fl MCH (26-32) pg MCHC (32-36) g/dl RDW (11.5-14.0) % Plt Count (150-450) K/mm3 MPV (6-9.5) fl Sodium 137 (137-145) mmol/L Potassium 4.1 (3.5-5.1) mmol/L Chloride 104 (98-107) mmol/L Carbon Dioxide 25 (22-30) mmol/L Anion Gap 12.0 (5-15) MEQ/L BUN 6 L (9-20) mg/dL Creatinine 0.80 (0.66-1.25) mg/dL Estimated GFR > 60.0 ML/MIN Glucose 99 (74-106) mg/dL Calcium 8.9 (8.4-10.2) mg/dL Magnesium (1.6-2.3) mg/dL Stl C. diff Tox B Gene (NEGATIVE) C.difficile [id number] (NEGATIVE) Slides for Path Review Assessment/Plan (1) Alcohol withdrawal syndrome Current Visit: Yes Status: Acute Onset Date: ~02/23/18 Qualifiers: Complication of substance-induced condition: uncomplicated Qualified Code(s ): F10.230 - Alcohol dependence with withdrawal, uncomplicated Assessment & Plan: will cut back on the scheduled valium from 10 mg q6h to 5mg q6h and continue prn ativan for CIWA scores continue phernergan and immodium prn replace magnesium and recheck continue iv fluids will transfer to [facility] as he has been stable and no suicidal or homicidal ideation [facility] has evaluated and recommends a sober living facility on discharge and he has the numbers for 2 houses in [place] to check in on. HR a little lower at times on the metoprolol will decrease from 50 bid to 25 bid continue amlodipine for htn Code(s): F10.239 - ALCOHOL DEPENDENCE WITH WITHDRAWAL, UNSPECIFIED (2) Alcoholic hepatitis Current Visit: Yes Status: Chronic Qualifiers: Ascites presence: without ascites Qualified Code(s): K70.10 - Alcoholic hepatitis without ascites Code(s): K70.10 - ALCOHOLIC HEPATITIS WITHOUT ASCITES (3) Fatty liver Current Visit: Yes Status: Acute Code(s): K76.0 - FATTY (CHANGE OF) LIVER, NOT ELSEWHERE CLASSIFIED (4) Thrombocytopenia Current Visit: Yes Status: Acute (5) Essential hypertension Current Visit: Yes Status: Chronic Code(s): I10 - ESSENTIAL (PRIMARY) HYPERTENSION
[2018-02-25] MEDS: Magnesium 1 Gm / 100 Ml D5W*** 100 ML IV SCH ×2 (11:12→11:48)
[2018-02-25] MEDS: Nicoderm CQ 21 MG TOP SCH (20:47)
[2018-02-26] MEDS: Ativan 2 MG/1 ML VIAL IV PRN ×7 (02:14→21:08)
[2018-02-26] MEDS: Valium 5 MG PO SCH ×4 (04:57→21:53)
[2018-02-26 05:47] LABS: Hematocrit 41.4 % (42-50); Mean Cell Volume 95.2 fl (78-100); Mean Corpuscular Hemoglobin 32.2 pg (26-32); Mean Corpuscular Hgb Concent. 33.8 g/dl (32-36); Mean Platelet Volume 11.8 fl (6-9.5); Platelet Count 85 K/mm3 (150-450); Red Blood Count 4.35 M/mm3 (4.1-5.6); Red Cell Distribution Width 15.8 % (11.5-14.0); White Blood Count 4.1 K/mm3 (4.0-10.5)
[2018-02-26 05:54] LABS: ALBUMIN 3.5 g/dL (3.5-5.0); ALKALINE PHOSPHATASE 131 U/L (38-126); ANION GAP 31.1 MEQ/L (5-15); BLOOD UREA NITROGEN 5 mg/dL (9-20); CHLORIDE 108 mmol/L (98-107); Calcium 8.8 mg/dL (8.4-10.2); Carbon Dioxide 22 mmol/L (22-30); Creatinine 1 0.73 mg/dL (0.66-1.25); Glucose 99 mg/dL (74-106); Potassium 4.2 mmol/L (3.5-5.1); SGOT/AST 152 U/L (17-59); SGPT/ALT 136 U/L (0-50); Total Protein 6.6 g/dL (6.3-8.2)
[2018-02-26 05:57] LABS: SODIUM 157 mmol/L (137-145)
[2018-02-26] MEDS: Sodium Chloride 0.9% W/ 20 mEq KCl/LITER 1,000 ML IV SCH (06:07)
[2018-02-26] MEDS ORDERED: Lactated Ringers 1,000 ML IV ONE (07:31)
[2018-02-26 08:04] LABS: Slide Review YES
--- NOTE | 2018-02-26 09:21 | PCM.NOTE ---
Date and Time: 02/26/18917 Subjective Assessment: He is doing "not well" thi smorning but will not elaborate aside from c/o a little abd pain when asked. Does admit to feeling nervous and shaky when asked. Tolerating po well. Worried about being on probation and trying to get to inpatient substance abuse program. - Review of Systems Constitutional: No Fever Objective Exam General Appearance: no apparent distress, anxiety Neurologic Exam: alert, cooperative Skin Exam: normal color, warm, dry, No rash Respiratory Exam: normal breath sounds, lungs clear, No crackles/rales, No rhonchi, No wheezing Cardiovascular Exam: regular rate/rhythm, normal heart sounds, No murmur Gastrointestinal/Abdomen Exam: soft, normal bowel sounds, tenderness (min scattered ttp lower abd) Extremity Exam: normal inspection, No pedal edema, No swelling OBJECTIVE DATA Vital Signs: Vital Signs - 24 hr Temp Pulse Resp BP Pulse Ox 02/26/18 07:03 98.2 F 66 18 140/91 97 02/26/18 04:00 98 F 94 H 16 136/91 97 02/25/18 23:40 97.9 F 73 22 134/88 93 L 02/25/18 19:57 97.9 F 57 L 18 102/62 96 02/25/18 19:00 92 L 02/25/18 16:00 98.0 F 80 18 136/76 95 02/25/18 12:00 63 20 126/85 Pain Assessment - Last Documented Pain Intensity 3 Pain Scale Used 0-10 Pain Scale Intake and Output: Intake & Output 02/23/18 02/24/18 02/25/18 02/26/18 12:59 12:59 11:59 11:59 Intake Total 2464 Output Total 320 Balance 2144 Weight 97.4 kg Lab Results: Lab Results-Last 24 Hours 02/26/18 02/26/18 Range/Units 05:30 05:30 WBC 4.1 (4.0-10.5) K/mm3 RBC 4.35 (4.1-5.6) M/mm3 Hgb 14.0 (12.5-18.0) gm/dl Hct 41.4 L (42-50) % MCV 95.2 (78-100) fl MCH 32.2 H (26-32) pg MCHC 33.8 (32-36) g/dl RDW 15.8 H (11.5-14.0) % Plt Count 85 L (150-450) K/mm3 MPV 11.8 H (6-9.5) fl Sodium 157 H* (137-145) mmol/L Potassium 4.2 (3.5-5.1) mmol/L Chloride 108 H (98-107) mmol/L Carbon Dioxide 22 (22-30) mmol/L Anion Gap 31.1 H (5-15) MEQ/L BUN 5 L (9-20) mg/dL Creatinine 0.73 (0.66-1.25) mg/dL Estimated GFR > 60.0 ML/MIN Glucose 99 (74-106) mg/dL Calcium 8.8 (8.4-10.2) mg/dL Magnesium 1.9 (1.6-2.3) mg/dL Total Bilirubin 0.40 (0.2-1.3) mg/dL AST 152 H (17-59) U/L ALT 136 H (0-50) U/L Alkaline Phosphatase 131 H (38-126) U/L Serum Total Protein 6.6 (6.3-8.2) g/dL Albumin 3.5 (3.5-5.0) g/dL Slides for Path Review YES Assessment/Plan (1) Alcohol withdrawal syndrome Current Visit: Yes Status: Acute Onset Date: ~02/23/18 Qualifiers: Complication of substance-induced condition: uncomplicated Qualified Code(s ): F10.230 - Alcohol dependence with withdrawal, uncomplicated Assessment & Plan: > 48 h post last alcoholic drink. Would be a good time to d/c to treatment facility on [facility]. Will have discharge planning look into whether his probation will be an issue. Code(s): F10.239 - ALCOHOL DEPENDENCE WITH WITHDRAWAL, UNSPECIFIED (2) Chest pain Current Visit: Yes Status: Resolved Onset Date: ~02/23/18 Qualifiers: Chest pain type: unspecified Qualified Code(s): R07.9 - Chest pain, unspecified Code(s): R07.9 - CHEST PAIN, UNSPECIFIED (3) Alcoholic hepatitis Current Visit: Yes Status: Chronic Qualifiers: Ascites presence: without ascites Qualified Code(s): K70.10 - Alcoholic hepatitis without ascites Code(s): K70.10 - ALCOHOLIC HEPATITIS WITHOUT ASCITES (4) Depression Current Visit: No Status: Chronic Qualifiers: Depression Type: major depressive disorder Active/Remission status: currently active Assessment & Plan: [facility] consult done, thank you. 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
[2018-02-26] MEDS: Lopressor 50 MG PO SCH (09:34)
[2018-02-26] MEDS: VITAMIN B-1 100 MG PO SCH (09:34)
[2018-02-26] MEDS: FOLATE 1 MG PO SCH (09:34)
[2018-02-26] MEDS: NORVASC 5 MG PO SCH ×2 (09:34→21:53)
[2018-02-26] MEDS: Vitamin B-12 500 MCG PO SCH (09:35)
[2018-02-26] MEDS: Pepcid 20 MG VIAL IV SCH (09:37)
[2018-02-26 13:17] LABS: ANION GAP 11.7 MEQ/L (5-15); BLOOD UREA NITROGEN 6 mg/dL (9-20); CHLORIDE 105 mmol/L (98-107); Calcium 9.1 mg/dL (8.4-10.2); Carbon Dioxide 25 mmol/L (22-30); Creatinine 1 0.78 mg/dL (0.66-1.25); Glucose 95 mg/dL (74-106); Potassium 4.6 mmol/L (3.5-5.1); SODIUM 137 mmol/L (137-145)
[2018-02-26] MEDS: Nicoderm CQ 21 MG TOP SCH (15:51)
[2018-02-26] MEDS: Lopressor 25MG Tab PO SCH (21:54)
[2018-02-27] MEDS: Valium 5 MG PO SCH ×4 (03:04→22:28)
[2018-02-27] MEDS: Ativan 2 MG/1 ML VIAL IV PRN ×3 (08:17→18:16)
[2018-02-27] MEDS: NORVASC 5 MG PO SCH ×2 (09:49→22:27)
[2018-02-27] MEDS: Vitamin B-12 500 MCG PO SCH (09:49)
[2018-02-27] MEDS: VITAMIN B-1 100 MG PO SCH (09:49)
[2018-02-27] MEDS: Pepcid 20 MG VIAL IV SCH (09:49)
[2018-02-27] MEDS: FOLATE 1 MG PO SCH (09:49)
[2018-02-27] MEDS: Lopressor 25MG Tab PO SCH ×2 (09:49→22:27)
[2018-02-27 10:58] LABS: Hematocrit 47.1 % (42-50); Hemoglobin 15.7 gm/dl (12.5-18.0); Mean Cell Volume 95.5 fl (78-100); Mean Corpuscular Hemoglobin 31.8 pg (26-32); Mean Corpuscular Hgb Concent. 33.3 g/dl (32-36); Platelet Count 124 K/mm3 (150-450); Red Blood Count 4.93 M/mm3 (4.1-5.6); Red Cell Distribution Width 16.1 % (11.5-14.0); White Blood Count 4.7 K/mm3 (4.0-10.5)
[2018-02-27 11:11] LABS: ANION GAP 14.3 MEQ/L (5-15); BLOOD UREA NITROGEN 12 mg/dL (9-20); CHLORIDE 104 mmol/L (98-107); Calcium 9.6 mg/dL (8.4-10.2); Carbon Dioxide 27 mmol/L (22-30); Creatinine 1 1.01 mg/dL (0.66-1.25); Glucose 97 mg/dL (74-106); Potassium 4.5 mmol/L (3.5-5.1); SODIUM 140 mmol/L (137-145)
[2018-02-27 11:18] LABS: ETHYL ALCOHOL < 10 mg/dL (0-10)
[2018-02-27] MEDS: Sodium Chloride 0.9% 10 ML FLUSH Syringe IV SCH ×2 (14:09→22:28)
[2018-02-27 14:13] LABS: Eosinophil 4 % (0.00-3.0); Lymphocytes 29 % (24-44); Monocyte 4 % (0.0-12.0); Neutrophils 63 % (36.-66.); Total Cells Counted 100
[2018-02-27 14:14] LABS: ANISOCYTOSIS 1+; Platelet Estimate NORMAL (NORMAL); Polychromasia 1+
--- NOTE | 2018-02-27 15:39 | PCM.NOTE ---
Date and Time: 02/27/181531 Subjective Assessment: Pt still just not feeling well, feels he has a hard time walking and is weak. Still shaky which is not unusual for him. States he usually feels better by this point in his recovery. Wonders if it's his depression. Denies suicidal ideation. Does mention that his dad 1 mo ago. He used to see dr. Fong earlier this year and was on risperdal but he missed a follow up appt and ran out of meds. Objective Exam General Appearance: no apparent distress, alert, anxiety Neurologic Exam: oriented x 3, cooperative Skin Exam: normal color, warm, dry, No rash Ears, Nose, Throat Exam: moist mucous membranes Neck Exam: normal inspection Respiratory Exam: normal breath sounds, lungs clear, No crackles/rales, No rhonchi, No wheezing Cardiovascular Exam: regular rate/rhythm, normal heart sounds, No murmur Extremity Exam: No pedal edema, No swelling OBJECTIVE DATA Vital Signs: Vital Signs - 24 hr Temp Pulse Resp BP Pulse Ox 02/27/18 11:17 98.1 F 74 20 134/68 98 02/27/18 06:57 98 F 68 20 130/58 97 02/27/18 04:51 97.9 F 65 20 128/80 96 02/27/18 00:00 98.4 F 54 L 17 134/81 97 02/26/18 20:00 98.5 F 56 L 18 134/85 97 02/26/18 19:00 97 02/26/18 16:00 98.2 F 87 18 135/85 94 L Pain Assessment - Last Documented Pain Intensity 0 Pain Scale Used 0-10 Pain Scale Intake and Output: Intake & Output 02/25/18 02/26/18 02/27/18 02/28/18 11:59 11:59 11:59 11:59 Intake Total 2464 3832 240 Output Total 320 2300 800 Balance 2144 1532 -560 Weight 97.4 kg 97.7 kg Lab Results: Lab Results-Last 24 Hours 02/27/18 02/27/18 Range/Units 10:53 10:53 WBC 4.7 (4.0-10.5) K/mm3 RBC 4.93 (4.1-5.6) M/mm3 Hgb 15.7 (12.5-18.0) gm/dl Hct 47.1 (42-50) % MCV 95.5 (78-100) fl MCH 31.8 (26-32) pg MCHC 33.3 (32-36) g/dl RDW 16.1 H (11.5-14.0) % Plt Count 124 L (150-450) K/mm3 MPV 11.0 H (6-9.5) fl Segmented Neutrophils 63 (36.-66.) % Lymphocytes (Manual) 29 (24-44) % Monocytes (Manual) 4 (0.0-12.0) % Eosinophils (Manual) 4 H (0.00-3.0) % Platelet Estimate NORMAL (NORMAL) RBC Morphology ABNORMAL Polychromasia 1+ Anisocytosis 1+ Sodium 140 (137-145) mmol/L Potassium 4.5 (3.5-5.1) mmol/L Chloride 104 (98-107) mmol/L Carbon Dioxide 27 (22-30) mmol/L Anion Gap 14.3 (5-15) MEQ/L BUN 12 (9-20) mg/dL Creatinine 1.01 (0.66-1.25) mg/dL Estimated GFR > 60.0 ML/MIN Glucose 97 (74-106) mg/dL Calcium 9.6 (8.4-10.2) mg/dL Ethyl Alcohol < 10 (0-10) mg/dL Multi-Disciplinary Progress Notes: Multi-Disciplinary Progress Notes 02/27/18 09:30 (created 02/27/18 12:30) Case Management Note by Leigh Ayon DR. REPORTS THAT SHE WILL SEE PT LATER TODAY, LIKELY PLAN FOR DC HOME TODAY UPON EVALUATION. PT PLANNING FOR SOBER LIVING ONCE DISCHARGED. PT REPORTS THAT HE MUST CHECK IN WITH PROFESSOR OF SURGERY MONTHLY. PT DENIES ADDNL NEEDS AT THIS TIME. WILL FOLLOW. Initialized on 02/27/18 12:30 - END OF NOTE Assessment/Plan (1) Depression Current Visit: No Status: Chronic Qualifiers: Depression Type: major depressive disorder Active/Remission status: currently active Assessment & Plan: Will start wellbutrin, seems to have fewer interactions with BZD than SSRI or abilify. Will get Dr. Fong records. may be able to d/c to home tomorrow. Code(s): F32.9 - MAJOR DEPRESSIVE DISORDER, SINGLE EPISODE, UNSPECIFIED (2) Weakness Current Visit: Yes Status: Acute Assessment & Plan: check for mono in a.m. Code(s): R53.1 - WEAKNESS (3) Alcohol withdrawal syndrome Current Visit: Yes Status: Acute Onset Date: ~02/23/18 Qualifiers: Complication of substance-induced condition: uncomplicated Qualified Code(s ): F10.230 - Alcohol dependence with withdrawal, uncomplicated Assessment & Plan: improving. BP are good. Code(s): F10.239 - ALCOHOL DEPENDENCE WITH WITHDRAWAL, UNSPECIFIED (4) Chest pain Current Visit: Yes Status: Resolved Onset Date: ~02/23/18 Qualifiers: Chest pain type: unspecified Qualified Code(s): R07.9 - Chest pain, unspecified Code(s): R07.9 - CHEST PAIN, UNSPECIFIED (5) Alcoholic hepatitis Current Visit: Yes Status: Chronic Qualifiers: Ascites presence: without ascites Qualified Code(s): K70.10 - Alcoholic hepatitis without ascites Code(s): K70.10 - ALCOHOLIC HEPATITIS WITHOUT ASCITES (6) Essential hypertension Current Visit: Yes Status: Chronic Code(s): I10 - ESSENTIAL (PRIMARY) HYPERTENSION (7) History of pancreatitis Current Visit: No Status: Chronic Code(s): Z87.19 - PERSONAL HISTORY OF OTHER DISEASES OF THE DIGESTIVE SYSTEM (8) Poly-drug misuser Current Visit: No Status: Chronic Code(s): F19.10 - OTHER PSYCHOACTIVE SUBSTANCE ABUSE, UNCOMPLICATED (9) Schizoaffective disorder Current Visit: No Status: Chronic Qualifiers: Schizoaffective disorder type: unspecified Qualified Code(s): F25.9 - Schizoaffective disorder, unspecified Code(s): F25.9 - SCHIZOAFFECTIVE DISORDER, UNSPECIFIED
[2018-02-27] MEDS: Nicoderm CQ 21 MG TOP SCH (16:10)
[2018-02-27] MEDS: Wellbutrin SR 150 MG PO SCH (22:27)
[2018-02-28] MEDS: Valium 5 MG PO SCH ×2 (04:33→09:39)
[2018-02-28] MEDS: Sodium Chloride 0.9% 10 ML FLUSH Syringe IV SCH (04:35)
[2018-02-28 05:49] LABS: BASOPHIL % 0.4 % (0.0-0.4); Basophil (Absolute #) 0.02 (0-0.4); Eosinophil % 3.5 % (0.00-5.0); Eosinophil (Absolute #) 0.17 (0-0.5); Granulocytes % 36.7 % (36.0-66.0); Hematocrit 42.1 % (42-50); Lymphocyte (Absolute #) 2.28 (1.0-4.6); Lymphocytes % 46.4 % (24.0-44.0); Mean Cell Volume 95.7 fl (78-100); Mean Corpuscular Hemoglobin 31.8 pg (26-32); Mean Corpuscular Hgb Concent. 33.3 g/dl (32-36); Mean Platelet Volume 11.2 fl (6-9.5); Monocyte (Absolute #) 0.64 (0.0-1.3); Platelet Count 117 K/mm3 (150-450); White Blood Count 4.9 K/mm3 (4.0-10.5)
[2018-02-28 06:07] LABS: ALBUMIN 3.6 g/dL (3.5-5.0); ALKALINE PHOSPHATASE 109 U/L (38-126); ANION GAP 10.7 MEQ/L (5-15); BLOOD UREA NITROGEN 20 mg/dL (9-20); CHLORIDE 107 mmol/L (98-107); Calcium 9.2 mg/dL (8.4-10.2); Carbon Dioxide 24 mmol/L (22-30); Creatinine 1 0.93 mg/dL (0.66-1.25); Glucose 96 mg/dL (74-106); Potassium 3.8 mmol/L (3.5-5.1); SGOT/AST 196 U/L (17-59); SGPT/ALT 238 U/L (0-50); SODIUM 137 mmol/L (137-145); Total Protein 6.8 g/dL (6.3-8.2)
[2018-02-28] MEDS: FOLATE 1 MG PO SCH (09:28)
[2018-02-28] MEDS: Lopressor 25MG Tab PO SCH (09:28)
[2018-02-28] MEDS: NORVASC 5 MG PO SCH (09:28)
[2018-02-28] MEDS: Wellbutrin SR 150 MG PO SCH (09:28)
[2018-02-28] MEDS: VITAMIN B-1 100 MG PO SCH (09:28)
[2018-02-28] MEDS: Pepcid 20 MG VIAL IV SCH (09:28)
[2018-02-28] MEDS: Vitamin B-12 500 MCG PO SCH (09:29)
[2018-02-28] MEDS: Ativan 2 MG/1 ML VIAL IV PRN (09:39)
--- NOTE | 2018-02-28 15:32 | PCM.DS ---
Discharge Summary Date of Admission: 02/23/18 16:12 Admitting Physician: DESTIN NUÑEZ Consults: Consults on Case 02/23/18 15:04 Tele-Health Consult ROUTINE Primary Care Provider: NO FAMILY DOCTOR Allergies Allergies No Known Drug Allergies Allergy (Verified 02/23/18 02:06) Hospital Summary - Hospital Course Hospital Course: Pt is a 42 yo male with PMHx depression, bipolar disorder, and polysubstance use disorders as well as alcohol use disorder, with no local MD, admitted through [facility] ER with chest pain and alcohol withdrawal. Chest XR non acute. He was ruled out for WA with negative troponins x 5. His d-dimer was mildly elevated, and with a blood gas with low PaO2 (question of whether venous or arterial), a CTA of the chest was done which was negative for PE. There was an incidental finding of fatty liver. Pt was here at [facility] for another admission under a different physician within the past few weeks for alcohol withdrawal. Was supposed to go to a treatment facility but ended up signing himself out AMA. Pt had anxiety throughout his stay, but was more nervous and jittery within the first 3 days (on admission, had been 24 hours without alcohol). His BP was initially elevated and he was started on metoprolol. It remained elevated so amlodipine was started as well; for the past 3 days has been in the 120s-130s systolic. He is currently on metoprolol 25mg po BID and amlodipine 5mg po BID ( will be placed on 10mg po daily at discharge). Pt is thrombocytopenic, although that improved during his stay (from a low of 71 ,000 platelets to 117,000 platelets on the day of discharge). His AST and ALT have been elevated throughout the stay. His last hepatitis panel was in November of 2016 (and was negative). He does have a hepatitis panel pending here, which was drawn today, 02/28/18. Pt complained of just feeling achy, hard to move around, and not as well as expected at this point in his recovery. He denies any history of mononucleosis , and his monospot test from yesterday was found to be positive. Pt also c/o depression. His father 1 month ago and with the money he was left the pt bought alcohol. Pt denied any suicidal ideation throughout this stay. I just received today records from Dr. Fong from patient's inpatient stay at [facility] in June of 2017. Pt seemed to feel better on the meds he received there, although he was unable to keep his outpatient appointment and ran out of medication. He was diagnosed with Bipolar I, depression (that episode with psychotic features), PTSD, KHARI, agoraphobia, and hx of cocaine, methamphetamine, and alcohol use disorders. He had been on minipress (unsure if discharged to home on that), celexa 30 mg (also unsure if discharged to home on that), and risperdal 0.5mg po BID (pt did continue this at home). While here, I started pt on wellbutrin SR 150mg 1 po BID. I will also send him home on the risperdal 0.5mg po BID. Regarding his alcohol withdrawal, he initially received ativan prn but the second day was started on valium 5mg po QID scheduled, with 2mg ativan IV prn. The goal has been to wean from BZD while treating the alcoholism. Two days ago he had 7 total doses of ativan in a 24 hour period (in addition to the valium). This past 24 hours he had 4 doses of IV ativan (8mg total), in addition to the valium (20mg total). This is equivalent to 140 mg librium. I will send pt home on librium 25mg, 1 po 4-5x/d, not to exceed 5 doses in a day. I am giving #25, five day supply, as he is supposed to check on an inpatient treatment facility the day after he gets home, which is Monday (the supply should last until Monday). He can certainly contact my office Monday with any issues and I would be glad to see him. He will be instructed to NOT drink alcohol as it can interact with the librium and cause . *Note: just prior to discharge, the material planner looked in on pt and he said that since he has mono, he spoke with his development officer and he is not going to go to the rehab facility until after [place]. planner scheduler advised this was a poor idea and not necessary to delay due to mono - he became agitated. He is still only getting a 5d supply of his medicines from me as I feel it is SO important for him to have follow up within the next few days. Again, I am happy to follow up if needed. - Vitals & Intake/Output Vital Signs: Vital Signs Temperature 98.4 F 02/28/18 12:00 Pulse Rate 52 L 02/28/18 12:00 Respiratory Rate 18 02/28/18 12:00 Blood Pressure 113/65 02/28/18 12:00 O2 Sat by Pulse Oximetry 95 02/28/18 12:00 Intake & Output: Intake & Output 02/26/18 02/27/18 02/28/18 03/01/18 11:59 11:59 11:59 11:59 Intake Total 2464 3832 1200 Output Total 320 2300 1600 Balance 2144 1532 -400 Weight 97.4 kg 97.7 kg 98 kg - Lab Result Diagrams: 02/28/18 05:41 02/28/18 05:41 Lab Results-Last 24 Hrs: Lab Results-Last 24 Hours 02/28/18 02/28/18 02/28/18 Range/Units 05:41 05:41 05:41 WBC 4.9 (4.0-10.5) K/mm3 RBC 4.40 (4.1-5.6) M/mm3 Hgb 14.0 (12.5-18.0) gm/dl Hct 42.1 (42-50) % MCV 95.7 (78-100) fl MCH 31.8 (26-32) pg MCHC 33.3 (32-36) g/dl RDW 16.0 H (11.5-14.0) % Plt Count 117 L (150-450) K/mm3 MPV 11.2 H (6-9.5) fl Gran % 36.7 (36.0-66.0) % Eos # (Auto) 0.17 (0-0.5) Absolute Lymphs (auto) 2.28 (1.0-4.6) Absolute Monos (auto) 0.64 (0.0-1.3) Lymphocytes % 46.4 H (24.0-44.0) % Monocytes % 13.0 H (0.0-12.0) % Eosinophils % 3.5 (0.00-5.0) % Basophils % 0.4 (0.0-0.4) % Absolute Granulocytes 1.80 (1.4-6.9) Basophils # 0.02 (0-0.4) Sodium 137 (137-145) mmol/L Potassium 3.8 (3.5-5.1) mmol/L Chloride 107 (98-107) mmol/L Carbon Dioxide 24 (22-30) mmol/L Anion Gap 10.7 (5-15) MEQ/L BUN 20 (9-20) mg/dL Creatinine 0.93 (0.66-1.25) mg/dL Estimated GFR > 60.0 ML/MIN Glucose 96 (74-106) mg/dL Calcium 9.2 (8.4-10.2) mg/dL Total Bilirubin 0.40 (0.2-1.3) mg/dL AST 196 H (17-59) U/L ALT 238 H (0-50) U/L Alkaline Phosphatase 109 (38-126) U/L Serum Total Protein 6.8 (6.3-8.2) g/dL Albumin 3.6 (3.5-5.0) g/dL Monoscreen POSITIVE (Negative) Micro Results-Entire Visit: Microbiology 02/23/18 02:25 Blood Culture Gram Stain - Final Blood Not Reportable Blood Culture - Final NO GROWTH 02/23/18 02:15 Blood Culture Gram Stain - Final Blood Not Reportable Blood Culture - Final NO GROWTH 02/23/18 07:03 Urine Culture - Final Clean Catch Midstream NO GROWTH - Procedures and Test Procedures and Tests throughout Hospitalization: Therapy Orders & Screens 02/23/18 09:36 EKG REPEAT IN AM Comment: Diagnosis: chest pain 02/23/18 10:32 Smoking Cessation Education ONCE Comment: Diagnosis: chest pain Smoking Status: Current every day smoker How long have you smoked: "about 15 Have you smoked in the past 12 months: Yes Approximately how many cigarettes per day: 20 Do you dip or chew tobacco: Yes ST Screen per Nursing Assess once Comment: Protocol Order Physician Instructions: Greater than [address] Admission Screening Reason For Exam: Triggered on Admission Diagnosis: chest pain CVA/Dyshpagia/Aphasia: Yes Cognitive Deficits: No Dehydration/Nutrition Deficit: Yes Reflux: No Oral-Motor Difficulties: No Pneumonia: No Fdc Resident: No Total Points: 10 02/23/18 15:00 Oxygen NASAL CANNULA 2 lpm Comment: Diagnosis: chest pain Respiratory Therapy Assessment DAILY Comment: Diagnosis: chest pain 11/06/18 15:36 PT Eval & Treat (MD Order) ROUTINE Reason for Eval:: feels weak, trouble walking reported by pt Diagnosis: chest pain Discharge Exam General Appearance: no apparent distress, anxiety (and depression), other (done this a.m.) Neurologic Exam: alert, oriented x 3, cooperative Skin Exam: normal color, warm, dry, No rash Ears, Nose, Throat Exam: moist mucous membranes Neck Exam: normal inspection Respiratory Exam: normal breath sounds, lungs clear, No crackles/rales, No rhonchi, No wheezing Cardiovascular Exam: regular rate/rhythm, normal heart sounds, No murmur Gastrointestinal/Abdomen Exam: soft, normal bowel sounds, No tenderness, No distention, No mass, No guarding, No rebound Extremity Exam: No pedal edema, No swelling Back Exam: normal inspection, No rash Final Diagnosis/Problem List - Final Discharge Diagnosis/Problem (1) Depression Current Visit: No Status: Chronic Assessment & Plan: Home on wellbutrin and risperdal 0.5mg po BID. Dr. Fong's notes remarked that they were avoiding Depakote since his LFTs were elevated due to alcohol withdrawal. No suicidal ideation. Follow up is crucial for this patient. I have currently given only 5d of all medicines as his plan has been to go straight to an inpatient treatment facility. If he does not go there by next week, he needs to call my office as I am happy to follow up with him. (2) Alcohol withdrawal syndrome Current Visit: Yes Status: Acute Onset Date: ~02/23/18 Assessment & Plan: Home on librium, 25mg 1po 4-5x/d, #25, no rf. DO NOT drink any alchol, at any time of the day. Alcohol interacts with librium and may cause . (3) Alcoholic hepatitis Current Visit: Yes Status: Chronic Assessment & Plan: with elevated LFTs. checking again for hepatitis; has been over a year since last checked. (4) Essential hypertension Current Visit: Yes Status: Chronic Assessment & Plan: home on metoprolol 25mg 1 po BID and amlodipine 10mg/d. (5) History of pancreatitis Current Visit: No Status: Chronic (6) Poly-drug misuser Current Visit: No Status: Chronic (7) Bipolar 1 disorder Current Visit: Yes Status: Acute Assessment & Plan: home on risperdal 0.5mg po BID. (8) Mononucleosis Current Visit: Yes Status: Acute Onset Date: ~02/28/18 (9) Fatty liver Current Visit: Yes Status: Chronic Onset Date: ~02/23/18 (10) Thrombocytopenia Current Visit: Yes Status: Chronic Onset Date: ~02/23/18 - Discharge Disposition: Home, Self-Care Condition: Stable Prescriptions: New Chlordiazepoxide HCl 25 mg [Librium 25 mg] 25 mg PO 5XD PRN #25 capsule MDD 5 PRN Reason: Anxiety Metoprolol Tartrate 25 mg [Lopressor 25MG Tab] 25 mg PO BID #10 tab Amlodipine Besylate 10 mg [Norvasc 10 MG] 10 mg PO DAILY #5 tablet Risperidone [Risperdal] 0.5 mg PO BID #10 tablet Bupropion HCl 150 mg Sr [Wellbutrin SR 150 MG] 150 mg PO BID #10 tablet.sa Instructions: Chest Pain That Is Not Caused by the Heart (DC), Depression, Adult (DC), Alcohol Abuse and Alcoholism (DC) Additional Instructions: DO NOT drink any alchol, at any time of the day. Alcohol interacts with librium and may cause . Forms: Work/School Release Form
[2018-02-28 15:56] VITALS: BP 140/84; PULSE 54; O2SAT 99
[2018-03-01 06:05] LABS: HEPATITIS B VIRUS CORE TOT AB Non Reactive (Non Reactive); HEPATITIS C VIRUS ANTIBODY Non Reactive (Non Reactive); Hepatitis B Surface Antigen Non Reactive (Non Reactive)
== END 2018-02-28 16:13 | disposition home or self-care (01) | DRG 897 ==
LOC: ED 01:44 → MED SURG 09:31 → OBSVTOIN 16:12 → ICU 16:50 → MED SURG 02-25 11:05
PROVIDERS: ADMIT Family Medicine; ATTEND Family Medicine
DX: F10.239 Alcohol dependence with withdrawal, unspecified (principal); K70.10 Alcoholic hepatitis without ascites; I10 Essential (primary) hypertension; Z87.19 Personal history of other diseases of the digestive system; R07.9 Chest pain, unspecified; F19.10 Other psychoactive substance abuse, uncomplicated; F25.9 Schizoaffective disorder, unspecified; B27.90 Infectious mononucleosis, unspecified without complication; K76.0 Fatty (change of) liver, not elsewhere classified; D69.6 Thrombocytopenia, unspecified; F41.9 Anxiety disorder, unspecified; G40.909 Epilepsy, unspecified, not intractable, without status epilepticus; F50.9 Eating disorder, unspecified; Z72.0 Tobacco use
CPT/HCPCS: 36000; 36415; 71045; 71260; 80048; 80053; 80074; 80307; 81001; 82150; 82805; 83605; 83690; 83735; 83935; 84484; 85025; 85027; 85379; 85610; 85730; 86308; 87040; 87086; 87493; 90686; 90791; 93005; 93268; 94760; 96360; 96361; 96365; 96374; 96375; 96376; 99285; G0008; G0481; J0696; J1650; J2060; J2405; J3475; Q3014; A9270-GY; G0480

== ENCOUNTER 2018-04-21 21:58 | Inpatient (IN) | payer OTHER ==
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
[2018-04-21] MEDS ORDERED: Zofran 4 MG/2 ML VIAL IV ONE (22:41)
[2018-04-21] MEDS ORDERED: Sodium Chloride 0.9% 1000 ML 1,000 ML IV STA (22:41)
[2018-04-21] MEDS ORDERED: Ativan 2 MG/1 ML VIAL IV ONE (22:45)
[2018-04-21] MEDS ORDERED: FOLATE 1 MG PO ONE (22:46)
[2018-04-21] MEDS ORDERED: THERAGRAN MULTIVITAMIN PO ONE (22:46)
[2018-04-21] MEDS ORDERED: THIAMINE 200 MG/2 ML IV ONE (22:47)
[2018-04-21] MEDS ORDERED: Pepcid 20 MG VIAL IV ONE (22:51)
[2018-04-21] MEDS ORDERED: Zofran 4 MG/2 ML VIAL ONE (22:51)
[2018-04-21] MEDS ORDERED: THIAMINE 200 MG/2 ML ONE (22:51)
[2018-04-21] MEDS ORDERED: Sodium Chloride 0.9% 1000 ML 1,000 ML ONE (22:51)
[2018-04-21] MEDS ORDERED: Ativan 2 MG/1 ML VIAL ONE (22:51)
[2018-04-21] MEDS ORDERED: MAALOX ES 30 ML UNIT DOSE ONE (23:48)
[2018-04-21] MEDS ORDERED: XYLOCAINE HCl Viscous ONE (23:48)
[2018-04-21] MEDS ORDERED: GI COCKTAIL 45 ML (Maalox/Lidocaine) PO ONE (23:51)
[2018-04-21 23:53] LABS: Basophil (Absolute #) 0 (0-0.4); Eosinophil (Absolute #) 0 (0-0.5); Granulocyte Absolute (ANC) 2.71 (1.4-6.9); Granulocytes % 83.7 % (36.0-66.0); Hematocrit 42.5 % (42-50); Hemoglobin 14.5 gm/dl (12.5-18.0); Lymphocyte (Absolute #) 0.26 (1.0-4.6); Mean Cell Volume 95.9 fl (78-100); Mean Corpuscular Hemoglobin 32.7 pg (26-32); Mean Corpuscular Hgb Concent. 34.1 g/dl (32-36); Mean Platelet Volume 10.8 fl (6-9.5); Monocyte (Absolute #) 0.27 (0.0-1.3); Monocytes % 8.3 % (0.0-12.0); Platelet Count 55 K/mm3 (150-450); Red Blood Count 4.43 M/mm3 (4.1-5.6); Red Cell Distribution Width 16.5 % (11.5-14.0); White Blood Count 3.2 K/mm3 (4.0-10.5)
[2018-04-22 00:16] LABS: ALBUMIN 4.8 g/dL (3.5-5.0); ALKALINE PHOSPHATASE 194 U/L (38-126); ANION GAP 28.7 MEQ/L (5-15); BLOOD UREA NITROGEN 8 mg/dL (9-20); CHLORIDE 91 mmol/L (98-107); Calcium 9.1 mg/dL (8.4-10.2); Carbon Dioxide 18 mmol/L (22-30); Creatinine 1 0.83 mg/dL (0.66-1.25); Glucose 103 mg/dL (74-106); Potassium 3.7 mmol/L (3.5-5.1); SGOT/AST 567 U/L (17-59); SGPT/ALT 231 U/L (0-50); SODIUM 134 mmol/L (137-145); Total Protein 8.7 g/dL (6.3-8.2)
[2018-04-22 00:17] LABS: ETHYL ALCOHOL < 10 mg/dL (0-10)
[2018-04-22 00:23] LABS: Appearance SLIGHTLY CLOUDY (CLEAR); Bilirubin SMALL (NEGATIVE); Blood MODERATE Ery/ul (0-5); Glucose NEGATIVE (NEGATIVE); Ketones MODERATE (NEGATIVE); Leukocyte Esterase NEGATIVE (NEGATIVE); Nitrite NEGATIVE (NEGATIVE); Protein,Urine Dip 100 (Negative); Specific Gravity 1.024 (1.005-1.025); Urobilinogen 4 mg/dL (0-1)
[2018-04-22 00:33] LABS: Amphetamine,Urine NEGATIVE (NEGATIVE); Barbiturate,Urine NEGATIVE (NEGATIVE); Benzodiazepine,Urine POSITIVE (NEGATIVE); Cocaine,Urine NEGATIVE (NEGATIVE); Methadone,Urine NEGATIVE (NEGATIVE); Opiate,Urine NEGATIVE (NEGATIVE); PCP,Urine NEGATIVE (NEGATIVE); THC,Urine NEGATIVE (NEGATIVE)
[2018-04-22] MEDS ORDERED: Sodium Chloride 0.9% 1000 ML 1,000 ML IV STA (00:56)
[2018-04-22] MEDS ORDERED: Hydromorphone 1 mg/ml Ampule IV ONE (01:04)
[2018-04-22] MEDS ORDERED: Hydromorphone 1 mg/ml Ampule ONE (01:31)
[2018-04-22] MEDS ORDERED: Sodium Chloride 0.9% 1000 ML 1,000 ML ONE (01:31)
[2018-04-22] MEDS ORDERED: Sodium Chloride 0.9% 500 ML 500 ML IV ONE ×2 (03:01→03:12)
[2018-04-22] MEDS ORDERED: Ativan 2 MG/1 ML VIAL IV ONE (05:00)
[2018-04-22] MEDS ORDERED: Ativan 2 MG/1 ML VIAL ONE (05:17)
[2018-04-22 06:20] LABS: ALBUMIN 3.9 g/dL (3.5-5.0); ALKALINE PHOSPHATASE 148 U/L (38-126); ANION GAP 18.7 MEQ/L (5-15); BLOOD UREA NITROGEN 7 mg/dL (9-20); CHLORIDE 99 mmol/L (98-107); Calcium 7.9 mg/dL (8.4-10.2); Carbon Dioxide 19 mmol/L (22-30); Creatinine 1 0.68 mg/dL (0.66-1.25); Glucose 94 mg/dL (74-106); Potassium 3.5 mmol/L (3.5-5.1); SGOT/AST 424 U/L (17-59); SGPT/ALT 201 U/L (0-50); SODIUM 133 mmol/L (137-145); Total Protein 7.2 g/dL (6.3-8.2)
[2018-04-22] MEDS ORDERED: Zofran 4 MG/2 ML VIAL IV PRN (06:35)
[2018-04-22] MEDS ORDERED: Ativan 2 MG/1 ML VIAL IV SCH (06:35)
[2018-04-22] MEDS ORDERED: VITAMINS FOR INFUSION IV SCH ×5 (08:00)
[2018-04-22] MEDS ORDERED: [UNRECOGNIZED DRUG - OTHER] IV SCH ×5 (08:00)
[2018-04-22] MEDS ORDERED: FOLNATE IV SCH ×5 (08:00)
[2018-04-22] MEDS ORDERED: PHARMACY DOSING REQUEST MC ONE (10:51)
[2018-04-22] MEDS: Ativan 2 MG/1 ML VIAL IV SCH ×2 (11:09→17:05)
[2018-04-22] MEDS: Pepcid 20 MG VIAL IV SCH (11:09)
--- NOTE | 2018-04-22 11:21 | XRAY ---
Indication: Confusion. Possible seizure. History seizures. Multiple contiguous axial images obtained through the head without contrast. Comparison: May 15, 2017. Again normal appearing brain parenchyma, ventricles, and bony calvarium. Visualized paranasal sinuses and mastoid air cells are clear. Impression: Stable normal CT head without contrast exam. Comment: Preliminary interpretation was made by [facility]. No discrepancy. CTDI 69.79
[2018-04-22] MEDS: Zosyn 3.375GM/100 Ml D5W 3.375 GM/100 ML IVPB IV SCH ×2 (11:29→17:05)
[2018-04-22] MEDS: [UNRECOGNIZED DRUG - MIXTURE] IV SCH ×6 (19:21)
--- NOTE | 2018-04-22 20:52 | XRAY ---
Indication: Diffuse abdomen/pelvic pain. Multiple contiguous axial images obtained through the abdomen and pelvis prior to and following 80 cc of Isovue-370 contrast. Enteric contrast also used. Comparison: None Lung bases demonstrates right hemidiaphragm elevation with adjacent atelectasis/scarring. No infiltrate or effusion. Heart is not enlarged. Noncontrasted images negative for pathologic visceral calcifications or calculi. Contrasted stomach and bowel loops appear nonobstructed. Normal appendix. Minimal sigmoid and rectal wall thickening, possible colitis. No free fluid/air. Postcontrast images demonstrates normal visceral enhancement and renal excretion. Diffuse fatty liver. Remaining liver, gallbladder, pancreas, spleen, adrenal glands, kidneys, ureters, bladder, and aorta appear unremarkable. No pathologic retroperitoneal lymphadenopathy. Osseous structures intact with mild degenerative changes of the lower lumbar spine. Bilateral L5 spondylolysis with very minimal spondylolisthesis. No ventral or inguinal hernias. Impression: 1. Negative pathologic visceral calcifications/calculi. 2. Minimal sigmoid and rectal wall thickening, possible colitis. 3. Diffuse fatty liver. 4. L5 spondylolysis with minimal grade 1 spondylolisthesis. Comment: Preliminary interpretation was made by [facility]. No critical discrepancy. CTDI 21.72
[2018-04-22] MEDS ORDERED: Pepcid 20 MG VIAL IV ONE (22:44)
[2018-04-23] MEDS: Zosyn 3.375GM/100 Ml D5W 3.375 GM/100 ML IVPB IV SCH ×3 (00:01→12:49)
[2018-04-23] MEDS: Ativan 2 MG/1 ML VIAL IV SCH ×2 (00:02→06:10)
[2018-04-23 06:03] LABS: BASOPHIL % 0.3 % (0.0-0.4); Basophil (Absolute #) 0.01 (0-0.4); Eosinophil (Absolute #) 0.03 (0-0.5); Granulocyte Absolute (ANC) 1.58 (1.4-6.9); Granulocytes % 53.2 % (36.0-66.0); Hematocrit 37.9 % (42-50); Hemoglobin 12.9 gm/dl (12.5-18.0); Lymphocyte (Absolute #) 0.98 (1.0-4.6); Mean Cell Volume 95.7 fl (78-100); Monocyte (Absolute #) 0.37 (0.0-1.3); Monocytes % 12.5 % (0.0-12.0); Platelet Count 34 K/mm3 (150-450); Red Blood Count 3.96 M/mm3 (4.1-5.6); Red Cell Distribution Width 16.2 % (11.5-14.0)
[2018-04-23] MEDS: [UNRECOGNIZED DRUG - MIXTURE] IV SCH ×6 (06:09)
[2018-04-23 06:24] LABS: ALBUMIN 3.6 g/dL (3.5-5.0); ALKALINE PHOSPHATASE 132 U/L (38-126); ANION GAP 15.1 MEQ/L (5-15); BLOOD UREA NITROGEN 3 mg/dL (9-20); CHLORIDE 98 mmol/L (98-107); Calcium 8.2 mg/dL (8.4-10.2); Carbon Dioxide 26 mmol/L (22-30); Creatinine 1 0.65 mg/dL (0.66-1.25); Glucose 103 mg/dL (74-106); Potassium 3.1 mmol/L (3.5-5.1); SGOT/AST 461 U/L (17-59); SGPT/ALT 217 U/L (0-50); SODIUM 136 mmol/L (137-145); Total Protein 6.8 g/dL (6.3-8.2)
[2018-04-23 06:27] LABS: Mean Corpuscular Hemoglobin 32.5 pg (26-32)
[2018-04-23 07:40] VITALS: O2SAT 97
[2018-04-23 08:03] LABS: Slide Review 1 YES
[2018-04-23] MEDS ORDERED: Ativan 0.5 MG PO PRN (08:03)
--- NOTE | 2018-04-23 08:10 | HP ---
CHIEF COMPLAINT: Seizure, withdrawal from alcohol, right upper quadrant abdominal pain, nausea and vomiting. HISTORY OF PRESENT ILLNESS: The patient is a 42 year-old white male patient who reports that he is a heavy alcohol drinker. He previously had withdrawal seizures and quit drinking approximately four days ago. He is shaky all over and was feeling sick enough he presented to the emergency room for further management. In the emergency room the patient received thiamine, IV multivitamins and fluids and evaluation was that the patient was likely having withdrawals from alcohol and has been admitted to the hospital with IV Ativan to use on a PRN basis to help prevent further episodes of seizures. It is also noted however that the patient's bilirubin is significantly elevated as well as his liver enzymes. PAST MEDICAL/SURGICAL HISTORY: HOME MEDICATIONS: The patient reports that he has not taking his regular home medications as he has not been to the doctor for quite some time. He had been getting medications previously in the clinic. ALLERGIES: NKDA. PHYSICAL EXAMINATION: Physical examination in the emergency room vital signs showed a temperature of 98.9F, pulse 126, respiratory rate 20 and blood pressure 168/98. O2 saturation 96% on room air. HEENT: Normocephalic, atraumatic. Pupils equal round reactive to light. Extraocular movements intact. Oropharynx is slightly dry. NECK: Supple without lymphadenopathy, thyromegaly or JVD. CHEST: Clear to auscultation. HEART: Regular rate and rhythm. ABDOMEN: Soft. No guarding or rebound present. There is tenderness mostly in the right upper quadrant noted. EXTREMITIES: Without clubbing, cyanosis or edema. NEUROLOGIC: The patient is alert and oriented x3 although he is slightly tremulous. LAB DATA AND TESTS: The patient's laboratory studies in the emergency room showed glucose 103, BUN 8, creatinine 0.83, slightly low sodium at 134. His bilirubin was 6.8. AST 567, ALT 231. ETOH less than 10. Amylase normal. Lactase slightly elevated at 556. His white blood cell count was 3,200, hemoglobin 14.5, PLT count however is low at 55,000. UA with specific gravity of 1.024, protein 100, moderate ketones, 0-2 red blood cells, 0-2 white blood cells on the urine on high power field. His urine drug screen was positive for benzodiazepines but otherwise is negative. ASSESSMENT: 1) A patient with seizure secondary to delirium tremens from alcohol withdrawal. He has been admitted to the hospital on IV Ativan to prevent further seizure episodes. 2) A patient with elevated bilirubin and tea-colored, elevated liver enzymes. Will check CT scan of the abdomen and pelvis with possible cholecystitis. The patient was placed on IV antibiotics and possible surgical consultation.
[2018-04-23] MEDS: Pepcid 20 MG VIAL IV SCH (09:31)
[2018-04-23] MEDS ORDERED: ENOXAPARIN SODIUM SQ SCH (10:00)
--- NOTE | 2018-04-23 12:19 | XRAY ---
Indication: Elevated bili Alex. Two-dimensional gallbladder sonogram performed. Comparison: December 02, 2015. Gallbladder normally distended without gallstones, wall thickening, or pericholecystic fluid. Common bile duct measures 4.6 mm. No intrahepatic biliary distention. Mild fatty echogenic liver without focal solid/cystic mass or ascites. Remaining visualized pancreas and right kidney sonographically unremarkable. Right kidney measures 12.1 cm in length. Impression: Fatty liver. Remaining gallbladder sonogram is negative.
[2018-04-23 14:10] VITALS: BP 148/84; PULSE 95
--- NOTE | 2018-04-23 14:44 | PCM.DCORD ---
- Discharge Discharge Date: 04/23/18 Prescriptions: Continue Metoprolol Tartrate 25 mg [Lopressor 25MG Tab] 25 mg PO BID #10 tab Amlodipine Besylate 10 mg [Norvasc 10 MG] 10 mg PO DAILY #5 tablet Risperidone [Risperdal] 0.5 mg PO BID #10 tablet Bupropion HCl 150 mg Sr [Wellbutrin SR 150 MG] 150 mg PO BID #10 tablet.sa Additional Instructions: Please begin AA Follow up with: AMIRAH RODRIGUEZ [Primary Care Provider] - 04/30/18 1:15 pm
[2018-04-24 17:40] LABS: HEPATITIS B VIRUS CORE TOT AB Non Reactive (Non Reactive); HEPATITIS C VIRUS ANTIBODY Non Reactive (Non Reactive); Hepatitis B Surface Antigen Non Reactive (Non Reactive)
== END 2018-04-23 16:10 | disposition home or self-care (01) | DRG 897 ==
LOC: ED 21:58 → MED SURG 04-22 06:24 → OBSVTOIN 04-22 06:24
PROVIDERS: ADMIT Family Medicine; ATTEND Family Medicine
DX: F10.231 Alcohol dependence with withdrawal delirium (principal); R56.9 Unspecified convulsions; R10.11 Right upper quadrant pain; R74.8 Abnormal levels of other serum enzymes; E80.7 Disorder of bilirubin metabolism, unspecified
CPT/HCPCS: 36000; 36415; 70450; 74178; 76705; 80053; 80074; 80307; 81001; 82150; 83690; 83735; 84484; 85025; 87086; 93005; 93041; 96374; 99285; J1170; J1650; J2060; J2405; J2543; J3480; A9270-GY; G0480

== ENCOUNTER 2019-05-04 14:25 | Inpatient (IN) | payer OTHER ==
[2019-05-04] MEDS ORDERED: BABY ASPIRIN 81 MG CHEW PO ONE (14:29)
[2019-05-04] MEDS ORDERED: Sodium Chloride 0.9% 1000 ML 1,000 ML IV STA (14:29)
[2019-05-04] MEDS ORDERED: Zofran 4 MG/2 ML VIAL IV ONE (14:30)
[2019-05-04] MEDS ORDERED: Ativan 2 MG/1 ML VIAL IV ONE (14:31)
[2019-05-04] MEDS ORDERED: Haldol 5 MG IV ONE (14:31)
[2019-05-04] MEDS ORDERED: THIAMINE 200 MG/2 ML IV ONE (14:34)
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
[2019-05-04 14:47] LABS: Absolute Neutrophil Ct (ANC) 2.34 (1.4-6.9); BASOPHIL % 0.6 % (0.0-0.4); Basophil (Absolute #) 0.02 (0-0.4); Eosinophil % 0.3 % (0.00-5.0); Eosinophil (Absolute #) 0.01 (0-0.5); Hematocrit 37.7 % (42-50); Hemoglobin 12.8 gm/dl (12.5-18.0); Lymphocyte (Absolute #) 0.75 (1.0-4.6); Lymphocytes % 21.4 % (24.0-44.0); Mean Cell Volume 95.7 fl (78-100); Mean Corpuscular Hemoglobin 32.5 pg (26-32); Mean Platelet Volume 10.2 fl (7.5-11.0); Monocyte (Absolute #) 0.39 (0.0-1.3); Monocytes % 11.1 % (0.0-12.0); Neutrophil % 66.6 % (36.0-66.0); Platelet Count 80 K/mm3 (150-450); Red Blood Count 3.94 M/mm3 (4.1-5.6); Red Cell Distribution Width 16.9 % (11.5-14.0); White Blood Count 3.5 K/mm3 (4.0-10.5)
[2019-05-04 15:07] LABS: SGPT/ALT 149 U/L (0-50)
[2019-05-04 15:09] LABS: ALBUMIN 3.9 g/dL (3.5-5.0); ALKALINE PHOSPHATASE 122 U/L (38-126); ANION GAP 19.4 MEQ/L (5-15); BLOOD UREA NITROGEN 10 mg/dL (9-20); CHLORIDE 101 mmol/L (98-107); Calcium 8.3 mg/dL (8.4-10.2); Carbon Dioxide 20 mmol/L (22-30); Creatinine 1 0.82 mg/dL (0.66-1.25); Glucose 134 mg/dL (74-106); NT PRO BNP 19.3 pg/mL (0-450); SGOT/AST 405 U/L (17-59); SODIUM 138 mmol/L (137-145); Total Protein 7.3 g/dL (6.3-8.2)
[2019-05-04 15:12] LABS: ETHYL ALCOHOL 149 mg/dL (0-10); SALICYLATE 2.6 mg/dL (2-20)
[2019-05-04 15:14] LABS: ACETAMINOPHEN < 10 ug/ml (10-30); Potassium 2.9 mmol/L (3.5-5.1); TROPONIN < 0.012 ng/mL (0.000-0.034)
[2019-05-04] MEDS ORDERED: Haldol 5 MG ONE (15:16)
[2019-05-04] MEDS ORDERED: THIAMINE 200 MG/2 ML ONE (15:16)
[2019-05-04] MEDS ORDERED: Ativan 2 MG/1 ML VIAL ONE (15:16)
[2019-05-04] MEDS ORDERED: Zofran 4 MG/2 ML VIAL ONE (15:16)
[2019-05-04] MEDS ORDERED: Sodium Chloride 0.9% 1000 ML 1,000 ML ONE (15:16)
[2019-05-04 15:58] LABS: Slide Review 1 YES
[2019-05-04 16:12] LABS: A-aADO2 24; ABG HEMOGLOBIN 12.4; ABG POTASSIUM 3.3 (3.5-5.1); ABG SITE RIGHT BRACHIAL; ARTERIAL BLD GAS O2 SATURATION 98.6 % (95-100); ARTERIAL BLOOD GAS BASE EXCESS 1.1 (-2.0-2.0); ARTERIAL BLOOD GAS FIO2 21 %; ARTERIAL BLOOD GAS PCO2 28 mmHg (35-45); ARTERIAL BLOOD GAS PO2 91 mmHg (75-100); ARTERIAL BLOOD GAS pH 7.52 (7.35-7.45); CARBOXYHEMOGLOBIN 1.5 % THgb (0.0-6.9); HCO3- 22.9 (22-28); HGB O2 SAT 96.3 g/dF (94-100); Methhemoglobin 0.9 % (1.4-1.5); paO2 pAO1 0.79
[2019-05-04] MEDS ORDERED: Zofran 4 MG/2 ML VIAL IV PRN (17:18)
[2019-05-04] MEDS: Dextrose 5% -0.45 NaCl 1000 ML 1,000 ML IV SCH (17:44)
[2019-05-04] MEDS: Ativan 2 MG/1 ML VIAL IV PRN ×4 (17:45→23:59)
[2019-05-04] MEDS: POTASSIUM CHLORIDE 20 mEq IN WATER 100ML 20 MEQ/100 ML BAG IV SCH ×2 (17:55→20:19)
[2019-05-04] MEDS: TORAdol 30 mg Injection IV PRN (18:00)
--- NOTE | 2019-05-04 19:46 | XRAY ---
Indication: Chest pain. Comparison: February 23, 2018. Portable chest again demonstrates normal heart, lungs, and bony thorax.
[2019-05-04] MEDS ORDERED: TYLENOL 325 MG PO PRN (19:51)
[2019-05-04] MEDS: Magnesium 1 Gm / 100 Ml D5W*** 100 ML IV SCH ×2 (22:04→22:41)
[2019-05-05] MEDS: Dextrose 5% -0.45 NaCl 1000 ML 1,000 ML IV SCH ×4 (01:31→22:58)
[2019-05-05] MEDS: Ativan 2 MG/1 ML VIAL IV PRN ×8 (02:09→23:32)
[2019-05-05 02:57] LABS: Absolute Neutrophil Ct (ANC) 1.63 (1.4-6.9); BASOPHIL % 0.3 % (0.0-0.4); Basophil (Absolute #) 0.01 (0-0.4); Eosinophil % 0.9 % (0.00-5.0); Eosinophil (Absolute #) 0.03 (0-0.5); Hematocrit 32.7 % (42-50); Hemoglobin 11.4 gm/dl (12.5-18.0); Lymphocyte (Absolute #) 1.27 (1.0-4.6); Lymphocytes % 38.4 % (24.0-44.0); Mean Cell Volume 96.5 fl (78-100); Mean Corpuscular Hemoglobin 33.6 pg (26-32); Mean Corpuscular Hgb Concent. 34.9 g/dl (32-36); Mean Platelet Volume 10.4 fl (7.5-11.0); Monocyte (Absolute #) 0.37 (0.0-1.3); Monocytes % 11.2 % (0.0-12.0); Neutrophil % 49.2 % (36.0-66.0); Platelet Count 66 K/mm3 (150-450); Red Blood Count 3.39 M/mm3 (4.1-5.6); Red Cell Distribution Width 17.2 % (11.5-14.0); White Blood Count 3.3 K/mm3 (4.0-10.5)
[2019-05-05 03:10] LABS: ALBUMIN 3.4 g/dL (3.5-5.0); ALKALINE PHOSPHATASE 109 U/L (38-126); ANION GAP 8.4 MEQ/L (5-15); BLOOD UREA NITROGEN 10 mg/dL (9-20); CHLORIDE 99 mmol/L (98-107); Calcium 8.3 mg/dL (8.4-10.2); Carbon Dioxide 31 mmol/L (22-30); Creatinine 1 0.87 mg/dL (0.66-1.25); Glucose 117 mg/dL (74-106); Potassium 3.5 mmol/L (3.5-5.1); SGOT/AST 280 U/L (17-59); SGPT/ALT 134 U/L (0-50); SODIUM 135 mmol/L (137-145); Total Protein 6.7 g/dL (6.3-8.2)
[2019-05-05 03:11] LABS: ETHYL ALCOHOL < 10 mg/dL (0-10); MAGNESIUM 1.9 mg/dL (1.6-2.3)
[2019-05-05] MEDS ORDERED: Ativan 2 MG/1 ML VIAL ONE (03:57)
[2019-05-05 04:26] LABS: Appearance CLEAR (CLEAR); Bacteria RARE /HPF (NEGATIVE); Bilirubin SMALL (NEGATIVE); Blood NEGATIVE Ery/ul (0-5); Calcium Oxalate Crystals 26-50 /HPF (NEGATIVE); Glucose NEGATIVE (NEGATIVE); Ketones TRACE (NEGATIVE); Leukocyte Esterase NEGATIVE (NEGATIVE); Mucus SLIGHT /HPF (NEGATIVE); Nitrite NEGATIVE (NEGATIVE); Protein,Urine Dip 30 (Negative); RBC 0-2 /HPF (0-2); Specific Gravity 1.027 (1.005-1.025); Urobilinogen 4 mg/dL (0-1); WBC 0-2 /HPF (0-5)
[2019-05-05 04:35] LABS: Amphetamine,Urine NEGATIVE (NEGATIVE); Barbiturate,Urine NEGATIVE (NEGATIVE); Benzodiazepine,Urine NEGATIVE (NEGATIVE); Cocaine,Urine NEGATIVE (NEGATIVE); Methadone,Urine NEGATIVE (NEGATIVE); Opiate,Urine NEGATIVE (NEGATIVE); PCP,Urine NEGATIVE (NEGATIVE); THC,Urine POSITIVE (NEGATIVE)
[2019-05-05] MEDS: THERAGRAN MULTIVITAMIN PO SCH (08:48)
[2019-05-05] MEDS: FOLATE 1 MG PO SCH (08:48)
[2019-05-05] MEDS: VITAMIN B-1 100 MG PO SCH (08:48)
[2019-05-05] MEDS ORDERED: FLUZONE QUAD 2019-2020 SYRINGE IM ONE (10:00)
[2019-05-05] MEDS: Klor Con 10 MEQ PO SCH (12:09)
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
[2019-05-05] MEDS ORDERED: Nicoderm CQ 21 MG ONE (18:37)
[2019-05-05] MEDS ORDERED: Nicoderm CQ 21 MG TOP SCH ×3 (18:45→20:00)
[2019-05-05] MEDS: TORAdol 30 mg Injection IV PRN (22:50)
[2019-05-06] MEDS: Ativan 2 MG/1 ML VIAL IV PRN ×4 (00:30→10:07)
[2019-05-06] MEDS: Dextrose 5% -0.45 NaCl 1000 ML 1,000 ML IV SCH (07:43)
[2019-05-06 08:26] VITALS: O2SAT 96
[2019-05-06 08:30] VITALS: BP 139/99
[2019-05-06 08:34] VITALS: PULSE 77
[2019-05-06] MEDS: VITAMIN B-1 100 MG PO SCH (10:07)
[2019-05-06] MEDS: FOLATE 1 MG PO SCH (10:07)
[2019-05-06] MEDS: THERAGRAN MULTIVITAMIN PO SCH (10:07)
[2019-05-06] MEDS: Klor Con 10 MEQ PO SCH (10:07)
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
== END 2019-05-06 12:06 | disposition left against medical advice (07) | DRG 894 ==
LOC: ED 14:25 → ICU 17:16
PROVIDERS: ADMIT Internal Medicine; ATTEND Family Medicine
DX: F10.20 Alcohol dependence, uncomplicated (principal); D61.818 Other pancytopenia; I10 Essential (primary) hypertension; F20.9 Schizophrenia, unspecified; E87.6 Hypokalemia; F32.9 Major depressive disorder, single episode, unspecified; R79.0 Abnormal level of blood mineral; R94.5 Abnormal results of liver function studies; F12.20 Cannabis dependence, uncomplicated
CPT/HCPCS: 36415; 36600; 71045; 80053; 80307; 81001; 82375; 82803; 82962; 83735; 83880; 84132; 84484; 85025; 90686; 90791; 93005; 93041; 94760; 94762; 96360; 96374; 96375; 99285; 99291; G0008; G0481; J1630; J1885; J2060; J2405; J3475; J3480; Q3014; A9270-GY; G0480

== ENCOUNTER 2019-06-06 16:07 | Observation (INO) | payer OTHER ==
[2019-06-06 17:32] LABS: Appearance CLEAR (CLEAR); Bilirubin NEGATIVE (NEGATIVE); Blood NEGATIVE Ery/ul (0-5); Glucose NEGATIVE (NEGATIVE); Ketones NEGATIVE (NEGATIVE); Leukocyte Esterase NEGATIVE (NEGATIVE); Nitrite NEGATIVE (NEGATIVE); Protein,Urine Dip NEGATIVE (Negative); Specific Gravity 1.003 (1.005-1.025); Urobilinogen NEGATIVE mg/dL (0-1)
[2019-06-06 17:43] LABS: Absolute Neutrophil Ct (ANC) 3.53 (1.4-6.9); BASOPHIL % 0.5 % (0.0-0.4); Basophil (Absolute #) 0.03 (0-0.4); Eosinophil (Absolute #) 0.06 (0-0.5); Hematocrit 43.8 % (42-50); Hemoglobin 14.6 gm/dl (12.5-18.0); Lymphocyte (Absolute #) 1.82 (1.0-4.6); Lymphocytes % 30.6 % (24.0-44.0); Mean Cell Volume 97.6 fl (78-100); Mean Corpuscular Hemoglobin 32.5 pg (26-32); Mean Corpuscular Hgb Concent. 33.3 g/dl (32-36); Mean Platelet Volume 8.9 fl (7.5-11.0); Monocytes % 8.4 % (0.0-12.0); Neutrophil % 59.5 % (36.0-66.0); Platelet Count 284 K/mm3 (150-450); Red Blood Count 4.49 M/mm3 (4.1-5.6); Red Cell Distribution Width 15.3 % (11.5-14.0); White Blood Count 5.9 K/mm3 (4.0-10.5)
[2019-06-06 17:50] LABS: Amphetamine,Urine NEGATIVE (NEGATIVE); Barbiturate,Urine NEGATIVE (NEGATIVE); Benzodiazepine,Urine NEGATIVE (NEGATIVE); Cocaine,Urine NEGATIVE (NEGATIVE); Methadone,Urine NEGATIVE (NEGATIVE); Opiate,Urine NEGATIVE (NEGATIVE); PCP,Urine NEGATIVE (NEGATIVE); THC,Urine NEGATIVE (NEGATIVE)
[2019-06-06 17:54] LABS: ALBUMIN 4.4 g/dL (3.5-5.0); ALKALINE PHOSPHATASE 122 U/L (38-126); ANION GAP 15.8 MEQ/L (5-15); BLOOD UREA NITROGEN 8 mg/dL (9-20); CHLORIDE 106 mmol/L (98-107); Calcium 8.9 mg/dL (8.4-10.2); Carbon Dioxide 25 mmol/L (22-30); Creatinine 1 0.73 mg/dL (0.66-1.25); ETHYL ALCOHOL 258 mg/dL (0-10); Glucose 90 mg/dL (74-106); Potassium 3.9 mmol/L (3.5-5.1); SGOT/AST 49 U/L (17-59); SGPT/ALT 29 U/L (0-50); SODIUM 143 mmol/L (137-145); Total Protein 8.6 g/dL (6.3-8.2)
[2019-06-06 18:00] LABS: ACETAMINOPHEN < 10 ug/ml (10-30); SALICYLATE < 1.0 mg/dL (2-20)
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
[2019-06-06] MEDS ORDERED: Ativan 2 MG/1 ML VIAL IV ONE (22:16)
[2019-06-06] MEDS ORDERED: Ativan 2 MG/1 ML VIAL ONE (22:38)
[2019-06-06 23:19] LABS: INR 1.1 (0.8-3.0); PROTIME 12.4 SECONDS (8.83-12.87)
[2019-06-06] MEDS ORDERED: MORPHINE SULFATE 4 MG INJ IV PRN (23:41)
[2019-06-06] MEDS ORDERED: Ativan 2 MG/1 ML VIAL IV PRN (23:41)
[2019-06-06] MEDS ORDERED: Zofran 4 MG/2 ML VIAL IV PRN (23:41)
[2019-06-07] MEDS: Ativan 2 MG/1 ML VIAL IV PRN ×5 (00:10→21:27)
[2019-06-07] MEDS: Sodium Chloride 0.9% 1000 ML 1,000 ML IV SCH ×3 (00:10→18:10)
[2019-06-07 00:26] LABS: ALBUMIN 3.7 g/dL (3.5-5.0); BILIRUBIN,TOTAL 0.6 mg/dL (0.2-1.3); Direct Bilirubin 0.2 mg/dL (0.0-0.4); Total Protein 7.1 g/dL (6.3-8.2)
[2019-06-07 05:33] LABS: Absolute Neutrophil Ct (ANC) 3.18 (1.4-6.9); BASOPHIL % 0.5 % (0.0-0.4); Basophil (Absolute #) 0.03 (0-0.4); Eosinophil % 1.7 % (0.00-5.0); Hematocrit 37.3 % (42-50); Hemoglobin 12.7 gm/dl (12.5-18.0); Lymphocyte (Absolute #) 2.13 (1.0-4.6); Lymphocytes % 35.6 % (24.0-44.0); Mean Cell Volume 97.1 fl (78-100); Mean Corpuscular Hemoglobin 33.1 pg (26-32); Mean Platelet Volume 9.5 fl (7.5-11.0); Monocyte (Absolute #) 0.54 (0.0-1.3); Neutrophil % 53.2 % (36.0-66.0); Platelet Count 229 K/mm3 (150-450); Red Blood Count 3.84 M/mm3 (4.1-5.6); Red Cell Distribution Width 15.3 % (11.5-14.0)
[2019-06-07 06:02] LABS: ALBUMIN 3.8 g/dL (3.5-5.0); ALKALINE PHOSPHATASE 99 U/L (38-126); ANION GAP 10.7 MEQ/L (5-15); BLOOD UREA NITROGEN 10 mg/dL (9-20); CHLORIDE 105 mmol/L (98-107); Calcium 8.4 mg/dL (8.4-10.2); Carbon Dioxide 26 mmol/L (22-30); Creatinine 1 0.72 mg/dL (0.66-1.25); Glucose 86 mg/dL (74-106); Potassium 3.7 mmol/L (3.5-5.1); SGOT/AST 44 U/L (17-59); SGPT/ALT 26 U/L (0-50); SODIUM 138 mmol/L (137-145); Total Protein 7.4 g/dL (6.3-8.2)
[2019-06-07] MEDS ORDERED: Vitamins For Infusion 10 ML INJECTION*** 10 ML, THIAMINE 200 MG/2 ML*** 100 MG, FOLNATE... IV SCH ×4 (07:30)
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
[2019-06-07] MEDS: MOTRIN 600 MG PO PRN ×2 (09:21→14:46)
[2019-06-07] MEDS ORDERED: PHARMACY DOSING REQUEST MC ONE (10:00)
[2019-06-07] MEDS: VITAMIN B-1 100 MG PO SCH (18:09)
[2019-06-08] MEDS: Ativan 2 MG/1 ML VIAL IV PRN ×3 (02:12→17:53)
[2019-06-08] MEDS: MOTRIN 600 MG PO PRN ×2 (02:12→09:03)
[2019-06-08] MEDS: Sodium Chloride 0.9% 1000 ML 1,000 ML IV SCH (04:06)
[2019-06-08 05:14] LABS: Absolute Neutrophil Ct (ANC) 4.28 (1.4-6.9); BASOPHIL % 0.3 % (0.0-0.4); Basophil (Absolute #) 0.02 (0-0.4); Eosinophil (Absolute #) 0.13 (0-0.5); Hematocrit 37.8 % (42-50); Hemoglobin 12.4 gm/dl (12.5-18.0); Lymphocyte (Absolute #) 1.81 (1.0-4.6); Lymphocytes % 27.3 % (24.0-44.0); Mean Cell Volume 100.5 fl (78-100); Mean Corpuscular Hgb Concent. 32.8 g/dl (32-36); Mean Platelet Volume 9.3 fl (7.5-11.0); Monocyte (Absolute #) 0.38 (0.0-1.3); Monocytes % 5.7 % (0.0-12.0); Neutrophil % 64.7 % (36.0-66.0); Platelet Count 191 K/mm3 (150-450); Red Blood Count 3.76 M/mm3 (4.1-5.6); Red Cell Distribution Width 14.8 % (11.5-14.0); White Blood Count 6.6 K/mm3 (4.0-10.5)
[2019-06-08 05:20] LABS: ALBUMIN 3.2 g/dL (3.5-5.0); ALKALINE PHOSPHATASE 105 U/L (38-126); ANION GAP 9.3 MEQ/L (5-15); BLOOD UREA NITROGEN 13 mg/dL (9-20); CHLORIDE 109 mmol/L (98-107); Calcium 8.4 mg/dL (8.4-10.2); Carbon Dioxide 24 mmol/L (22-30); Creatinine 1 0.68 mg/dL (0.66-1.25); Glucose 91 mg/dL (74-106); MAGNESIUM 1.8 mg/dL (1.6-2.3); Potassium 4.1 mmol/L (3.5-5.1); SGOT/AST 42 U/L (17-59); SGPT/ALT 23 U/L (0-50); SODIUM 138 mmol/L (137-145); Total Protein 6.5 g/dL (6.3-8.2)
[2019-06-08] MEDS: VITAMIN B-1 100 MG PO SCH (09:03)
[2019-06-08] MEDS ORDERED: TYLENOL 325 MG PO PRN (12:43)
[2019-06-08] MEDS ORDERED: THIAMINE 200 MG/2 ML*** 100 MG, Vitamins For Infusion 10 ML INJECTION*** 10 ML, FOLNATE... IV PRN ×4 (13:00)
[2019-06-08 16:55] VITALS: BP 146/83; PULSE 67; O2SAT 96
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
[2019-06-09 02:00] LABS: HEPATITIS A IGM Non Reactive (Non Reactive); HEPATITIS B VIRUS CORE TOT AB Non Reactive (Non Reactive); HEPATITIS C VIRUS ANTIBODY Non Reactive (Non Reactive); Hepatitis B Surface Ab.Quant. <3.50 mIU/mL (0.00-8.49); Hepatitis B Surface Antigen Non Reactive (Non Reactive)
== END 2019-06-08 18:43 | disposition short-term general hospital (02) ==
LOC: ED 16:07 → ICU 23:35
PROVIDERS: ADMIT Family Medicine; ATTEND Family Medicine
DX: F10.239 Alcohol dependence with withdrawal, unspecified (principal); R45.851 Suicidal ideations; M54.9 Dorsalgia, unspecified; F10.24 Alcohol dependence with alcohol-induced mood disorder; F32.89 Other specified depressive episodes
CPT/HCPCS: 0064U; 36415; 80053; 80074; 80076; 80307; 81001; 83735; 84100; 85025; 85610; 86592; 86593; 86701; 86702; 87389; 90791; 93005; 93268; 96374; 99291; G0378; G0480; G0481; Q3014; 99284; J2060; A9270-GY